=== PATIENT | female | born 1995 | race Caucasian/White ===

== ENCOUNTER 2019-08-07 19:28 | Emergency (ER) | payer OTHER, SELFPAY ==
[2019-08-07 19:46] VITALS: BP 131/82; PULSE 65; RESP 22; TEMP 36.8; O2SAT 100
[2019-08-07 20:04] LABS: Basophils Percent Auto 0.4 % (0.2-1.2); Eosinophils Absolute Auto 0.2 K/mm3 (0-0.3); Eosinophils Percent Auto 1.9 % (0-4.4); Hematocrit 40.8 % (37.0-47.0); Hemoglobin 13.4 g/dL (12.0-15.0); Immature Granulocyte Absolute 0.02 K/mm3 (0.00-0.031); Immature Granulocyte Percent A 0.2 % (0-0.5); Lymphocytes Absolute Auto 1.32 K/mm3 (0.9-3.2); Lymphocytes Percent Auto 15.6 % (18.3-44.2); Mean Corpuscular HGB Conc 32.8 g/dl (32-36); Mean Corpuscular Hemoglobin 31.3 pg (26-34); Mean Corpuscular Volume 95.3 fl (80-100); Mean Platelet Volume 10.5 fl (7.4-10.4); Monocytes Absolute Auto 0.6 K/mm3 (0.1-0.6); Monocytes Percent Auto 6.8 % (2.6-8.5); Neutrophils Absolute Auto 6.3 K/mm3 (1.3-6.7); Neutrophils Percent Auto 75.1 % (45.5-73.1); Platelet Count Result 198 k/mm3 (150-375); Red Blood Count 4.28 M/mm3 (4.2-5.4); Red Cell Distribution Width 12.9 % (11.5-14.5); White Blood Count 8.4 K/mm3 (4.5-10.0)
[2019-08-07 20:16] LABS: Alanine Aminotransferase 15 U/L (4-35); Albumin Level 4.6 g/dL (3.5-5.1); Alkaline Phosphatase 64 U/L (38-126); Aspartate Amino Transferase 24 U/L (14-36); Bilirubin,Total 0.3 mg/dL (0.2-1.3); Blood Urea Nitrogen 13 mg/dL (7-17); Calcium 9.2 mg/dL (8.4-10.2); Carbon Dioxide 24 mmol/L (22-30); Chloride 101 mmol/L (98-107); Estimated CRCL calculation 80 ml/min; Estimated Glomerular Filt Rate > 60; Glucose 112 mg/dL (65-105); Lipase 104 U/L (23-300); Potassium 3.8 mmol/L (3.4-5.0); Sodium 140 mmol/L (137-145)
[2019-08-07 20:46] LABS: Add Urine Microscopic? YES; Appearance Urine Clear (Clear); Bilirubin Urine Negative (Negative); Blood Urine 2+ (Negative); Color Urine Yellow (Yellow); Glucose Urine UA Negative (Negative); Ketones Urine Negative (Negative); Leukocyte Esterase Ur Negative LEU/UL (Negative); Mucus Urine Few /lpf; Nitrate Urine Negative (Negative); Protein Urine Negative (Negative); RBC Urine 0-2 /hpf (0-2); Squamous Epithelial Cell Urine Occasional /hpf (Few); Urobilinogen Urine Negative mg/dL (<2.0); WBC Urine 0-3 /hpf
[2019-08-07 20:50] LABS: Specific Grav Ur 1.031 (1.001-1.035)
--- NOTE | 2019-08-07 20:56 | ED.ABDPAIN ---
HPI - Abdominal Pain General Chief Complaint: Abdominal Pain Stated Complaint: ABD PAIN Time Seen by Provider: 08/07/19 20:48 Source: patient Mode of arrival: ambulatory Limitations: no limitations History of Present Illness HPI narrative: A 24 y/o female presents to the ED with c/o cramping lower ABD pain. Pt states that she is currently on her menstrual cycle and normally has cramps with her menstrual cycle. The cramping ABD pain has been debilitating today and much worse than her normal, so she decided to come to the ED. She took Ibuprofen at 1700 tonight with no relief. Pt reports N/V/D, but denies fever, cough, SOB, and dysuria. She does not note any sick contacts. Pt adds that the ABD pain has subsided in the ED. MD elicited complaint: abdominal pain (Lower) Pertinent past history: other (Menstrual cramps) Onset (ago): hour(s) (Today) Pain Consistency: now resolved Location: other (Lower) Quality: cramping Relieving factors: nothing Context: confirms other (Current menstrual cycle) Associated symptoms: nausea, vomiting and diarrhea Treatments prior to arrival: NSAIDs (Ibuprofen) Related Data Allergies Allergy/AdvReac Type Severity Reaction Status Date / Time Sulfa (Sulfonamide Allergy Rash Verified 08/07/19 21:07 Antibiotics) Review of Systems Review of Systems: Narrative: CONSTITUTIONAL: Denies fever, chills, or sweats. CARDIOVASCULAR: Denies chest pain, palpitations, or edema. RESPIRATORY: Denies cough or dyspnea. GASTROINTESTINAL: Reports lower abdominal pain, nausea, vomiting, or diarrhea. GENITOURINARY: Denies dysuria or hematuria. SKIN: Denies rash or itching. MUSCULOSKELETAL: Denies back pain, joint pain, or myalgia. NEUROLOGIC: Denies headache, numbness, or weakness. All systems reviewed & are unremarkable except as noted in HPI and below PMFSH Past Medical History Medical History (Updated 08/07/19 @ 23:26 by Bre Guerrero MD) Asthma Menstrual cramps Surgical History Surgical History (Updated 08/07/19 @ 21:38 by Kasey Alvarado) History of appendectomy Social History Social History (Updated 08/07/19 @ 21:43 by Kasey Alvarado) Smoking status: Unknown if ever smoked Gender identity (if verbalized by the patient): Female Exam Narrative: Exam Narrative: GENERAL: Well-appearing, well-nourished, and in no acute distress. HEAD: Normocephalic, atraumatic. EYES: PERRLA and EOMI. ENT: Nares clear, no rhinorrhea or epistaxis. Mucous membranes moist. NECK: Supple. CHEST: Clear to auscultation. No respiratory distress. HEART: Regular rate and rhythm. No murmur heard. Normal peripheral pulses. ABDOMEN: Soft, mild suprapubic tenderness, nondistended, normal active bowel sounds. No rebound. No guarding. EXTREMITIES: Normal range of motion. No edema. SKIN: Warm, dry, no rash. NEURO: No focal deficits. Alert and oriented X3. Course Course Emergency Course: Patient's abdomen is soft without significant pain or signs of surgical abdomen on serial exams. Lab evaluations are reviewed and patient is felt to be a reasonable candidate for outpatient management. Patient was instructed as to limitations of lab evaluation and encouraged to return to the emergency department her primary physician for repeat exam in 12 hours if continued or worsening pain. Her symptoms are most consistent with menstrual type cramping pain, and she has a longstanding history of this. No risk for sexually transmitted infection given monogamous with in room, no other vaginal discharge. Patient then discharged home in stable condition. Vital Signs Vital signs: Vital Signs Temperature 36.8 C 08/07/19 19:46 Pulse Rate 65 08/07/19 19:46 Respiratory Rate 22 H 08/07/19 19:46 Blood Pressure 131/82 08/07/19 19:46 Pulse Oximetry 100 08/07/19 19:46 Temperature 36.7 C 08/07/19 22:37 Pulse Rate 74 08/07/19 21:07 Respiratory Rate 18 08/07/19 21:07 Blood Pressure 112/71 08/07/19 21:07 Pulse Oximetry 98
[2019-08-07 21:07] VITALS: BP 112/71; PULSE 74; RESP 18; TEMP 36.7; O2SAT 98
[2019-08-07] MEDS: SODIUM CHLORIDE 0.9% IV 1,000 ML 999 ML IV CONT (22:10)
[2019-08-07] MEDS: ONDANSETRON INJ 4 MG/2 ML VIAL IV PUSH (22:11)
[2019-08-07 22:27] VITALS: BP 107/69; PULSE 68; RESP 16; O2SAT 98
[2019-08-07 22:37] VITALS: TEMP 36.7
[2019-08-08 00:05] VITALS: BP 119/72; PULSE 75; RESP 18; TEMP 37.1; O2SAT 99
== END 2019-08-08 00:07 | disposition home or self-care (01) ==
PROVIDERS: Emergency Provider Emergency Medicine
DX: R10.30 Lower abdominal pain, unspecified (principal); J45.909 Unspecified asthma, uncomplicated
CPT/HCPCS: 36415; 80053; 81001; 81025; 83690; 85025; 96361; 96374; 96375; 99284; J0131; J2405; J7030

== ENCOUNTER 2020-08-30 07:40 | Inpatient (IN) | payer OTHER, SELFPAY ==
[2020-08-30] VITALS (31 sets, daily range): BP systolic 99–160; BP diastolic 65–100; PULSE 67–137; RESP 16; TEMP 36.7–37.1; O2SAT 99–100; BMI 26.3
--- NOTE | 2020-08-30 07:40 | LDADM ---
This patient, Mara Bentley, was admitted to Labor/Delivery/Recovery 107 on 08/30/20 at 07:40. Plans for labor, pain management and were discussed with patient. Patient/family oriented to hospital policies and general routines including ID bracelet, bed and alarms, visiting hours, pain management, procedures, bathroom and other care routines, personal items, smoking policy, room service/diet and guest tray routines, infant security routines, and visiting hours. Patient/Family are encouraged to report perceived risks to care and to ask questions if they do not understand what they are told or what they should do. See OBIX for further documentation.
--- NOTE | 2020-08-30 08:20 | WPDOBADMIT ---
Obstetrics - Admit Note Admission Note: 25 y/o G1 @ 39w5d here with spontaneous rupture of membranes @ 0700. Pt prefers a natural approach to labor. Minimal intervention. record reviewed. No pertinent additions to the history and/or any subsequent changes in the physical findings that are not consistent with the expected course of the were found. Additions to the history and/or subsequent changes in the physical findings follow. None.
[2020-08-30 08:27] LABS: Basophils Percent Auto 0.2 % (0.2-1.2); Eosinophils Absolute Auto 0.1 K/mm3 (0-0.3); Eosinophils Percent Auto 0.9 % (0-4.4); Hematocrit 34.5 % (37.0-47.0); Hemoglobin 11.4 g/dL (12.0-15.0); Immature Granulocyte Absolute 0.03 K/mm3 (0.00-0.031); Immature Granulocyte Percent A 0.3 % (0-0.5); Lymphocytes Absolute Auto 1.47 K/mm3 (0.9-3.2); Lymphocytes Percent Auto 17.1 % (18.3-44.2); Mean Corpuscular Hemoglobin 30.7 pg (26-34); Mean Platelet Volume 10.8 fl (7.4-10.4); Monocytes Absolute Auto 0.8 K/mm3 (0.1-0.6); Monocytes Percent Auto 8.8 % (2.6-8.5); Neutrophils Absolute Auto 6.3 K/mm3 (1.3-6.7); Neutrophils Percent Auto 72.7 % (45.5-73.1); Platelet Count Result 178 k/mm3 (150-375); Red Blood Count 3.71 M/mm3 (4.2-5.4); Red Cell Distribution Width 13.2 % (11.5-14.5); White Blood Count 8.6 K/mm3 (4.5-10.0)
--- NOTE | 2020-08-30 10:32 | P.PNAN_ITS ---
Anes - Eval Pre Procedure Procedure: labor epidural Date/Time: 08/30/20 10:32 Pre Op Diagnosis: Labor Patient Data Age: 25 Gender: F Height: 5 ft 6 in Weight: 74 kg Last Vital Signs Temp 36.9 C 08/30/20 07:55 Pulse 71 08/30/20 09:30 BP 120/73 08/30/20 09:30 Allergies Allergy/AdvReac Type Severity Reaction Status Date / Time Sulfa (Sulfonamide Allergy Rash Verified 01/12/20 12:33 Antibiotics) Home Medications Medication Instructions Recorded Confirmed Type PNV cmb#95-ferrous fumarate-FA 1 tablet PO DAILY 08/06/20 08/30/20 History [] Laboratory Tests 08/30/20 08/30/20 08/30/20 08:21 08:21 08:21 WBC 8.6 K/mm3 K/mm3 (4.5-10.0) RBC 3.71 M/mm3 L M/mm3 (4.2-5.4) Hgb 11.4 g/dL L g/dL (12.0-15.0) Hct 34.5 % L % (37.0-47.0) MCV 93.0 fl fl (80-100) MCH 30.7 pg pg (26-34) MCHC 33.0 g/dl g/dl (32-36) RDW 13.2 % % (11.5-14.5) Plt Count 178 k/mm3 k/mm3 (150-375) MPV 10.8 fl H fl (7.4-10.4) Immature Gran % (Auto) 0.3 % % (0-0.5) Neut % (Auto) 72.7 % % (45.5-73.1) Lymph % (Auto) 17.1 % L % (18.3-44.2) [place] % (Auto) 8.8 % H % (2.6-8.5) Eos % (Auto) 0.9 % % (0-4.4) Baso % (Auto) 0.2 % % (0.2-1.2) Lymph # (Auto) 1.47 K/mm3 K/mm3 (0.9-3.2) [place] # (Auto) 0.8 K/mm3 H K/mm3 (0.1-0.6) Eos # (Auto) 0.1 K/mm3 K/mm3 (0-0.3) Baso # (Auto) 0.0 K/mm3 K/mm3 (0.0-0.1) Abs Immat Gran (auto) 0.03 K/mm3 K/mm3 (0.00-0.031) Absolute Neuts (auto) 6.3 K/mm3 K/mm3 (1.3-6.7) Absolute Nucleated RBC 0.0 K/mm3 K/mm3 (0.0-0.012) Nucleated RBC % 0.0 % % (0.0-0.2) RPR Pending Blood Type O Positive Antibody Screen Negative Patient hx anesthesia problems: none Family hx anesthesia problems: none [facility] Past Medical History Medical History (Updated 08/30/20 @ 10:32 by Natan Sterling CRNA) Asthma Menstrual cramps Surgical History Surgical History History of appendectomy Family History Family History Grandparent Diabetes mellitus Social History Social History Smoking status: Never smoker Second hand tobacco smoke exposure: No Substance use: never Gender identity (if verbalized by the patient): Female Spiritual care concerns: No Exam Day of Procedure 08/30/20 10:32 Patient weight: normal Heart: regular rate and rhythm Lungs: clear to auscultation and normal air movement Neurological: alert and oriented
[2020-08-30] MEDS: CALCIUM CARBONATE (TUMS) 500 MG (200 MG ELEMENTAL) 400 MG PO (14:22)
--- NOTE | 2020-08-30 17:06 | PM.OBPRVD ---
OB - Delivery Note Procedure Delivery date: 08/30/20 Procedure: vaginal delivery Intrapartal events: None Induction method: none Delivery monitor: external FHT and external uterine Route of delivery: Laceration Description: Perineal - 2nd Degree Delivery repair: vicryl Specimen: No Quantitative Blood Loss (ml): 104 Anesthesia type: Local (after delivery for repair) Disposition: other () Baby Date of : 08/30/20 Time of : 16:47 Weeks of gestation at delivery: 39 gender: Female Weight (pounds): 7 Weight (ounces): 13 presentation: vertex position: Left Occiput Anterior Placenta delivery description: Spontaneous cord vessel description: 3 Vessels, Nuchal Cord, Clamped/Cut and Delayed Cord Clamping score one minute: 8 score five minutes: 9 Narrative: mother and baby skin to skin in stable condition
[2020-08-30] MEDS: IBUPROFEN 600 MG TABLET PO (18:19)
[2020-08-30] MEDS: BENZOCAINE 20% AER SPR (*SP) 56 GM CAN 1 SPRAY TOPICAL (18:20)
[2020-08-30] MEDS: WITCH HAZEL 40 PADS 1 PAD TOPICAL (18:20)
--- NOTE | 2020-08-30 19:40 | OBPPTRN ---
Patient transferred to post room #282 via wheelchair. Support person present. Oriented to unit, room, information board, rooming in, admission packet and security measures. Patient verbalizes understanding. with patient.
[2020-08-30] MEDS: ACETAMINOPHEN 325 MG TABLET 650 MG PO (23:44)
[2020-08-31 04:20] VITALS: BP 120/74; PULSE 67; RESP 16; TEMP 36.4; O2SAT 100
[2020-08-31] MEDS: IBUPROFEN 600 MG TABLET PO ×2 (04:22→18:50)
[2020-08-31 05:13] LABS: Hematocrit 29.2 % (37.0-47.0); Hemoglobin 9.4 g/dL (12.0-15.0)
--- NOTE | 2020-08-31 07:35 | PM.OBPNVD ---
OB - PN: Subj Subjective Date/time seen: 08/31/20 07:35 Patient comments: no complaints baby status: doing well Johnson feeding status: exclusively breast feeding OB - PN: Obj Data Labs CBC & Chem 7: 08/31/20 04:25 Labs: Laboratory Results - last 24 hr 08/30/20 08/30/20 08/31/20 08:21 08:21 04:25 WBC 8.6 RBC 3.71 L Hgb 11.4 L 9.4 L Hct 34.5 L 29.2 L MCV 93.0 MCH 30.7 MCHC 33.0 RDW 13.2 Plt Count 178 MPV 10.8 H Immature Gran % (Auto) 0.3 Neut % (Auto) 72.7 Lymph % (Auto) 17.1 L [place] % (Auto) 8.8 H Eos % (Auto) 0.9 Baso % (Auto) 0.2 Lymph # (Auto) 1.47 [place] # (Auto) 0.8 H Eos # (Auto) 0.1 Baso # (Auto) 0.0 Abs Immat Gran (auto) 0.03 Absolute Neuts (auto) 6.3 Absolute Nucleated RBC 0.0 Nucleated RBC % 0.0 Blood Type O Positive Antibody Screen Negative OB - PN A/P Time Spent With Patient Time: Total time spent is greater than 50% in coordination of care (as documented) at patient's floor/unit and/or counseling patient: Review of Systems Review of Systems: All systems reviewed & are unremarkable except as noted in HPI and below Constitutional: Constitutional: Reports as per HPI Exam Const: General: cooperative Nutritional Appearance: average body habitus Orientation/consciousness: patient oriented x3 Limitations: no limitations Psych: Affect: normal affect Attitude: cooperative Thought process: Normal thought process present Thought content: Yes Normal thought content present Insight: Good insight present (Psych) Judgement: Good judgement present (Psych)
--- NOTE | 2020-08-31 07:52 | P.DS_ITS ---
DS: Admitting Diagnosis Admitting Diagnosis Admitting Diagnosis: labor OB - DS: Summary OB Procedures : None OB Procedures Intrapartum: Spontaneous Vag Delivery OB Procedures: : None Time Spent with Patient Time attestation: Total time spent providing and/or coordinating discharge services: DS: Data Data Completed and Pending Labs on day of discharge: Labs from last 24 hours 08/31/20 08/30/20 08/30/20 04:25 08:21 08:21 WBC RBC Hgb 9.4 L Hct 29.2 L MCV MCH MCHC RDW Plt Count MPV Immature Gran % (Auto) Neut % (Auto) Lymph % (Auto) [place] % (Auto) Eos % (Auto) Baso % (Auto) Lymph # (Auto) [place] # (Auto) Eos # (Auto) Baso # (Auto) Abs Immat Gran (auto) Absolute Neuts (auto) Absolute Nucleated RBC Nucleated RBC % RPR Pending Blood Type O Positive Antibody Screen Negative 08/30/20 08:21 WBC 8.6 RBC 3.71 L Hgb 11.4 L Hct 34.5 L MCV 93.0 MCH 30.7 MCHC 33.0 RDW 13.2 Plt Count 178 MPV 10.8 H Immature Gran % (Auto) 0.3 Neut % (Auto) 72.7 Lymph % (Auto) 17.1 L [place] % (Auto) 8.8 H Eos % (Auto) 0.9 Baso % (Auto) 0.2 Lymph # (Auto) 1.47 [place] # (Auto) 0.8 H Eos # (Auto) 0.1 Baso # (Auto) 0.0 Abs Immat Gran (auto) 0.03 Absolute Neuts (auto) 6.3 Absolute Nucleated RBC 0.0 Nucleated RBC % 0.0 RPR Blood Type Antibody Screen Discharge Plan Discharge Attending physician on discharge: Rodney Mistry Discharging Clinician: Regina Hernandez Patient Disposition: Home, Self-Care Activity: pelvic rest Diet: regular Patient Instructions: Antibiotic Form Stand Alone Forms: General Discharge Information Follow-up/Referrals: Regina Hernandez CNM [Certified Nurse Electronic Warfare Specialist] - 4 Weeks Discharge Medications: Continued PNV cmb#95-ferrous fumarate-FA [] 28 mg iron- 800 mcg Tablet 1 tablet PO DAILY RF: 0 Date of admission: 08/30/20 07:40 Primary Care Provider: Zohreh,Peewee Estrada Admitting Provider: Rodney Mistry Attending physician on admission: Rodney Mistry Condition: Stable
[2020-08-31 08:35] VITALS: BP 109/64; PULSE 67; RESP 16; TEMP 36.8; O2SAT 100
[2020-08-31 08:43] LABS: Rapid Plasma Reagin Non-Reactive (NonReactive)
--- NOTE | 2020-08-31 09:20 | PC.NURSE ---
Mother called out for assist with feeding. Consulted with patient, reports has bed well since . Mother has nipple discomfort with latch during most of the feeding. Both nipples are reddened, nipple care reviewed and lanolin provided. Reviewed feeding cues, frequencies, duration of feedings, feeding elimination flow sheet, and signs of adequate intake. Demonstrated stimulation techniques to wake infant for feeding. Assisted with to breast. Reviewed positioning/alignment in cross cradle, holding breast in U hold and guided asymmetrical latch on. Infant was able to latch correctly within a few attempts. nursed eagerly, with steady draws and frequent swallowing noted. Reviewed signs of a correct latch, effective nursing and suck swallow ratio. Infant was able to maintain latch. Mother reported tenderness at times, had slipped to shallow latch. Demonstrated how to adjust latch more deeply while feeding. Mother quickly reports she can feel infant is latched more deeply and has minimal tenderness. Suggested to stimulate while feeding to keep infant awake and nursing effectively for increased stimulation and increased intake. Instructed mother to call out for RN assistance if she is unable to latch infant for feeding or she has discomfort with nursing. Instructed feeding should be initiated three hours from start of last feeding or if feeding cues are noted before. Mother voiced understanding of information shared.
[2020-08-31] MEDS: DOCUSATE SODIUM 100 MG CAPSULE PO ×2 (11:05→18:51)
[2020-08-31] MEDS: MULTIVIT/MIN/PREN/FOL AC/IRON TABLET 1 TAB PO (11:05)
[2020-08-31] MEDS: WITCH HAZEL 40 PADS 1 PAD TOPICAL (11:06)
[2020-08-31] MEDS: ACETAMINOPHEN 325 MG TABLET 650 MG PO (11:06)
[2020-08-31] MEDS: BENZOCAINE 20% AER SPR (*SP) 56 GM CAN 1 SPRAY TOPICAL (11:07)
[2020-08-31] MEDS: LANOLIN (LANSINOH) 7.5 GM CREAM 1 APPLIC TOPICAL (11:07)
[2020-08-31 11:30] VITALS: PULSE 67; RESP 16; O2SAT 100
[2020-08-31 12:12] VITALS: BP 111/71; PULSE 75; RESP 16; TEMP 36.8; O2SAT 99
--- NOTE | 2020-08-31 13:10 | PC.NURSE ---
Mother called out for assist with latch. Upon entering mother has latch shallow in football. Mother reports pain to nipple. is in poor positioning/alignment. Suggested to switch to cross cradle. Assisted with support for correct positioning/alignment. Reviewed positioning/alignment in cross cradle, holding breast in U hold and guided asymmetrical latch on. Several attempts before was able to latch correctly.. nursed eagerly, with steady draws and frequent swallowing noted. Reviewed signs of a correct latch, effective nursing and suck swallow ratio. Infant was able to maintain latch. Mother reported tenderness at times, infant had slipped to shallow latch. Demonstrated how to adjust latch more deeply while feeding. Mother quickly reports she can feel infant is latched more deeply and has minimal tenderness. Stressed maintaining deep latch and calling out if she has discomfort with feeding. Suggested to stimulate infant while feeding to keep infant awake and nursing effectively for increased stimulation and increased intake. Instructed mother to call out for RN assistance if she is unable to latch for feeding or she has discomfort with nursing. Advised to use warm moist heat to nipples and then gel pads. Instructed feeding should be initiated three hours from start of last feeding or if feeding cues are noted before. Mother voiced understanding of information shared.
[2020-08-31] MEDS: POLYSACCHARIDE IRON COMPLEX 150 MG CAPSULE PO (18:51)
[2020-08-31 19:00] VITALS: BP 114/70; PULSE 77; RESP 16; TEMP 36.7
--- NOTE | 2020-09-01 07:38 | PM.OBDSVD ---
DS: Admitting Diagnosis Admitting Diagnosis Admitting Diagnosis: Labor DS: Discharge Diagnosis Discharge Diagnosis (1) Vaginal delivery: Code(s): O80 - Encounter for full-term uncomplicated delivery Status: Acute OB - DS: Summary OB Procedures : None OB Procedures Intrapartum: Spontaneous Vag Delivery OB Procedures: : None Time Spent with Patient Time attestation: Total time spent providing and/or coordinating discharge services: DS: Data Data Completed and Pending Labs on day of discharge: Labs from last 24 hours 08/30/20 08:21 RPR Non-reactive Discharge Plan Discharge Attending physician on discharge: Rodney Mistry Discharging Clinician: Regina Hernandez Patient Disposition: Home, Self-Care Activity: pelvic rest Diet: regular Discharge Instructions: Education: Mom and Baby Guide Given to: Mother Follow-Up: Call your delivering provider's office for an appointment to be seen in: 4 Weeks Mom and baby [facility] come [facility] for the follow-up appointment. Appointment Date/Time: September 01, 2020 at 9:00 am What to expect at your follow-up visit: Blood Pressure Check Physical Assessment Call [phone] if you are unable to keep your appointment time. BREAST CARE: * Wear a snug supportive bra. * For engorgement discomfort: Breast Feeding: * Apply warm moist washcloths * Express milk as needed to relieve engorgement * Wear loose clothing * For sore nipples: * Identify correct latch-on * Apply warm moist washcloths before and after nursing * Air dry nipples after nursing * May apply Lansinoh cream to nipples PERINEAL CARE: * Until bleeding stops, use your ivy bottle after urinating * Change your pad frequently throughout the day * You may take sitz baths several times a day (fill your bathtub with warm water and soak for 20 minutes.) Do NOT bathe in the water * No tub baths until seen by your physician - You may shower ACTIVITY: * Rest as much as possible. * Do not exercise or lift anything heavier than your baby (such as laundry or other children.) * Avoid stairs or driving as much as possible. * Do not put anything into the vagina. No douching, tampons, or sexual activity until seen by physician. NOTIFY PHYSICIAN IF YOU HAVE ANY QUESTIONS OR IF ANY OF THE FOLLOWING SYMPTOMS OCCUR: * If your vaginal area becomes red, swollen, or more painful than what you have experienced in the hospital. * If your vaginal bleeding becomes foul smelling. * If your vaginal bleeding becomes more heavy than a period or if your bleeding changes from pink to bright red. However, you may pass an occasional walnut-sized clot once or twice for the first week . * If you experience a sharp, shooting pain in your calves. * If you discover a hard, reddened area on your breast or if you experience flu-like symptoms. DIET: * Eat regular, well-balanced meals. * Drink plenty of fluids daily. If , drink to thirst. Patient Instructions: Child Safety Seats (DC), Caring for Your Baby (DC), How Long Should I Breastfeed and How do I Wean? (DC), Your Winfred's Appearance (DC) Stand Alone Forms: General Discharge Information Follow-up/Referrals: Regina Hernandez CNM [Certified Nurse Hot Stamp Operator] - 4 Weeks Discharge Medications: Continued PNV cmb#95-ferrous fumarate-FA [] 28 mg iron- 800 mcg Tablet 1 tablet PO DAILY RF: 0 Date of admission: 08/30/20 07:40 Primary Care Provider: Zohreh,Peewee Estrada Admitting Provider: Rodney Mistry Attending physician on admission: Rodney Mistry Condition: Stable
[2020-09-01 07:55] VITALS: BP 115/75; PULSE 91; RESP 18; TEMP 36.6; O2SAT 99
--- NOTE | 2020-09-01 08:15 | PC.NURSE ---
Mother is able to independently latch infant with appropriate positioning/alignment. She continues to report slight nipple discomfort, is feeding as required and waking to feed if needed. has had several effective feedings in the past 24 hours, and is currently meeting outcomes for weight, output, jaundice and feeding frequencies. is supplemented after each feeding by ICP suggestion for increased jaundice. Mother states she feels confident to continue and supplementing at home. Offered to set up and assist mother with pumping before discharge, mother has a pump at home she plans to use and denies assist. Mother will continue to supplement EBM/formula until seen by ICP or advised by follow up RN. Reviewed transition to breast milk, signs of adequate intake, and engorgement/relief. Instructed to call ICP if intake/output less than required. Reviewed regular medications mother is taking. Information provided per Amee. Reviewed community resources on the [facility] website and in the Mom/Baby guide. Information on outpatient services provided. Mother has no further questions at this time.
[2020-09-01 09:00] VITALS: PULSE 91; RESP 18; O2SAT 99
[2020-09-01] MEDS: MULTIVIT/MIN/PREN/FOL AC/IRON TABLET 1 TAB PO (10:09)
[2020-09-01] MEDS: DOCUSATE SODIUM 100 MG CAPSULE PO (10:09)
[2020-09-01] MEDS: IBUPROFEN 600 MG TABLET PO (10:09)
[2020-09-02 12:13] VITALS: BP 119/80; PULSE 87; RESP 20; TEMP 36.8; O2SAT 100
== END 2020-09-01 10:30 | disposition home or self-care (01) | DRG 807 ==
LOC: ANHLDR 08:48 → ANHOB2 19:46
PROVIDERS: Advanced Practice Midwife; Admitting Provider Obstetrics & Gynecology; PCP Family Medicine; Visit Provider Obstetrics & Gynecology
DX: O99.52 Diseases of the respiratory system complicating childbirth (principal); Z37.0 Single live birth; Z3A.39 39 weeks gestation of pregnancy; J45.909 Unspecified asthma, uncomplicated; O70.1 Second degree perineal laceration during delivery; O69.81X0 Labor and delivery complicated by cord around neck, without compression, not applicable or unspecified
CPT/HCPCS: 36415; 84112; 85014; 85018; 85025; 86592; 86850; 86900; 86901; A9270

== ENCOUNTER 2023-09-27 13:41 | Emergency (ER) | payer OTHER, SELFPAY ==
--- NOTE | ~2023-09-27 | XR_ITS ---
EXAMINATION: XR chest 2V DATE: 09/27/2023 14:33 INDICATION: Chest pain TECHNIQUE: PA and lateral views of the chest are obtained. COMPARISON: None available FINDINGS: The lungs are free of acute opacities. No pleural effusion or pneumothorax. The cardiomedia stinal silhouette is normal. The visualized bones and soft tissues are unremarkable. IMPRESSION: 1. No acute cardiopulmonary abnormality. Reviewed, dictated and finalized at location A.
--- NOTE | 2023-09-27 13:43 | ECG_ITS ---
Measurements Intervals [place] Rate: 88 P: 84 ME: 133 QRS: 93 QRSD: 94 T: 32 QT: 329 QTc: 399 Interpretive Statements SINUS RHYTHM RIGHT AXIS DEVIATION POSSIBLE LEFT ATRIAL ENLARGEMENT NONSPECIFIC ST-T WAVE ABNORMALITY- ANTEROLAT/INF LEADS BORDERLINE ECG NO PREVIOUS ECG AVAILABLE FOR COMPARISON Electronically Signed On 09-28-2023 16:33:04 CDT by Destin Daniel D.O.
[2023-09-27 13:56] VITALS: BP 121/74; PULSE 84; RESP 18; TEMP 36.9; O2SAT 100
[2023-09-27 14:16] LABS: Basophils Percent Auto 0.6 % (0.2-1.2); Eosinophils Absolute Auto 0.1 K/mm3 (0-0.3); Eosinophils Percent Auto 1.1 % (0-4.4); Hematocrit 40.8 % (37.0-47.0); Hemoglobin 13.2 g/dL (12.0-15.0); Immature Granulocyte Absolute 0.01 K/mm3 (0.00-0.031); Immature Granulocyte Percent A 0.2 % (0-0.5); Mean Corpuscular HGB Conc 32.4 g/dl (32-36); Mean Corpuscular Hemoglobin 30.6 pg (26-34); Mean Corpuscular Volume 94.7 fl (80-100); Mean Platelet Volume 10.9 fl (7.4-10.4); Monocytes Absolute Auto 0.4 K/mm3 (0.1-0.6); Monocytes Percent Auto 7.4 % (2.6-8.5); Neutrophils Percent Auto 55.7 % (45.5-73.1); Platelet Count Result 178 k/mm3 (150-375); Red Blood Count 4.31 M/mm3 (4.2-5.4); Red Cell Distribution Width 13.1 % (11.5-14.5); White Blood Count 5.4 K/mm3 (4.5-10.0)
[2023-09-27 14:24] VITALS: O2SAT 100
[2023-09-27 14:25] VITALS: BP 116/72; PULSE 89; RESP 14; O2SAT 100
[2023-09-27 14:26] LABS: Alanine Aminotransferase 15 U/L (6-35); Albumin Level 4.5 g/dL (3.5-5.1); Alkaline Phosphatase 56 U/L (38-126); Anion Gap 5 mmol/L (4-12); Aspartate Amino Transferase 26 U/L (14-36); Bilirubin,Total 0.5 mg/dL (0.2-1.3); Blood Urea Nitrogen 13 mg/dL (7-17); Calcium 9.4 mg/dL (8.4-10.2); Carbon Dioxide 27 mmol/L (22-30); Chloride 107 mmol/L (98-107); Estimated Glomerular Filt Rate > 60; Glucose 96 mg/dL (65-110); Lipase 115 U/L (23-300); Potassium 3.9 mmol/L (3.4-5.0); Sodium 139 mmol/L (137-145)
[2023-09-27 14:27] LABS: Partial Thromboplastin Time 28.6 Seconds (22.3-36.8); Prothrombin Time 13.4 Seconds (11.1-14.7)
[2023-09-27 14:46] LABS: Troponin I < 0.012 ng/mL (0.000-0.034)
[2023-09-27 15:07] VITALS: BP 104/63; PULSE 64; RESP 16; O2SAT 100
[2023-09-27 15:11] VITALS: PULSE 69; RESP 15
[2023-09-27] MEDS: IPRATROPIUM 0.5 MG/ALBUTEROL SULFATE 2.5 MG AMPUL.NEB 3 ML INHALATION (15:11)
[2023-09-27] MEDS: KETOROLAC 30 MG/ML VIAL (*BKC) 15 MG IM (15:13)
[2023-09-27 15:18] VITALS: PULSE 71; RESP 14
--- NOTE | 2023-09-27 15:43 | ED.CHESTPAIN ---
HPI - Chest Pain General Chief Complaint: Chest Pain Stated Complaint: chest pain/sob Time Seen by Provider: 09/27/23 14:28 History of Present Illness HPI narrative: Patient with history of asthma presents here with midsternal chest pain that is nonradiating, associated with a slight cough. She has been having this discomfort on and off for the last 2 weeks, was worse yesterday. No focal numbness or weakness. No lower extremity pain or swelling. Related Data Home Medications Medication Instructions Recorded Confirmed vit no.95-ferrous 1 tablet PO DAILY 08/06/20 08/30/20 fumarate 28 mg-folic acid 800 mcg tablet () Allergies Allergy/AdvReac Type Severity Reaction Status Date / Time Sulfa (Sulfonamide Allergy Rash Verified 01/12/20 12:33 Antibiotics) Review of Systems Review of Systems: CONST: No fever. HEENT: No sore throat C/V: chest pain RESP: cough GI: No abdominal pain : No dysuria. M/S: No joint pain. SKIN: No rash. NEURO: [No headache or focal numbness or weakness] PSYCH: [No depression] [facility] Past Medical History Medical History Asthma Menstrual cramps Surgical History Surgical History History of appendectomy Family History Family History Grandparent Diabetes mellitus Social History Social History Smoking status: Never smoker Second hand tobacco smoke exposure: No Substance use: never Gender identity (if verbalized by the patient): Female Spiritual care concerns: No Exam Narrative: EXAMINATION OF ORGAN SYSTEMS/BODY AREAS: Constitutional: Vital signs per nursing GENERAL:[No acute distress, non-toxic appearing.] HEAD: Normal with no signs of head trauma. EYES: EOMI, conjunctiva normal ENT: Hearing grossly intact LUNGS: Nonlabored breathing. Clear to auscultation bilaterally. HEART: [Regular rate and rhythm] ABD: [Soft], [nontender to palpation] EXT: Normal range of motion SKIN: [No rashes or lesions.] NEURO: [Alert and oriented x 3. No gross focal sensory or strength deficits.] PSYCH: Normal affect Course Vital Signs Vital signs: Vital Signs Temperature 98.4 F 09/27/23 13:56 Pulse Rate 84 09/27/23 13:56 Respiratory Rate 18 09/27/23 13:56 Blood Pressure 121/74 09/27/23 13:56 Pulse Oximetry 100 09/27/23 13:56 Oxygen Delivery Room Air 09/27/23 13:56 Temperature 98.4 F 09/27/23 13:56 Pulse Rate 71 09/27/23 15:18 Respiratory Rate 14 09/27/23 15:18 Blood Pressure 104/63 09/27/23 15:07 Pulse Oximetry 100 09/27/23 15:07 Oxygen Delivery Room Air 09/27/23 14:24 MDM - Chest Pain MDM Narrative Medical decision making narrative: ED COURSE AND MEDICAL DECISION MAKINF presenting with chest pain. EKG done in triage negative for acute ischemic changes. Cardiac workup is initiated. EKG: Performed in triage and interpreted by me. Normal sinus rhythm. Rate 88. Normal axis. OR normal. QRS duration normal. QTc normal. No pathologic Q waves. No ST segment elevation or depression to suggest acute ischemia. HEART score is 0 with no acute ischemic changes on EKG and negative troponin making ACS unlikely. No DVT symptoms and negative PERC making PE unlikely. Presentation not consistent with dissection or aneurysm without radiation of pain or pulse deficits. CXR negative for mediastinal widening. No cardiomegaly or JVD to suggest pericardial effusion/tamponade. HEART Score: [0]. (Risk of major adverse cardiac events over 6 weeks: Score of 0-3 is low risk <2% ; Score of 4-6 is moderate risk ~12-15%; Score of 7-12 is high risk ~50%). I suspect likely chest pain from acute bronchitis/cough, will give pain medication and try DuoNebs. On repeat evaluation just prior to discha
== END 2023-09-27 15:56 | disposition home or self-care (01) ==
LOC: ANHED 15:07
PROVIDERS: Emergency Medicine; Emergency Provider Emergency Medicine; Referring Provider Emergency Medicine
DX: R07.89 Other chest pain (principal); J45.909 Unspecified asthma, uncomplicated; R94.31 Abnormal electrocardiogram [ECG] [EKG]
CPT/HCPCS: 36415; 71046; 80053; 83690; 84484; 85025; 85610; 85730; 93005; 94640; 96372; 99284; J1885

== ENCOUNTER 2025-06-13 15:28 | Observation (INO) | payer BC, SELFPAY ==
--- OUTSIDE RECORDS SUMMARY | 2025-06-13 15:30 | XMS_ITS | Encounter Summary ---
Author Organization [facility] Healthcare Address [address] [place] [address] Care Team Providers Care Smoking Pipe Coater Name Role Phone Unknown, Notinfile Primary Care Provider Unavail able Reason for Visit * Reason Comments Nausea Nausea, stomach cram ps, diarrhea x 5 days Encounter Details Date Type Department Care Team (Late st Contact Info) Description 06/13/2025 3:30 PM DRILLER'S OFFSIDER Office Visit [facility] at [address] [id number] Dayanna Urias NP [address] [place] [address] [address] [place], [place] [id number] Right upper quadrant abdominal pain (Primary Dx); Right upper quadrant abdominal tenderness, unspecified whether rebound tenderness present; 25 weeks gestation of Social History Tobacco Use Types Packs/Day Years Used Date Smoking Tobacco: Never Estimated Date of Delivery Comme nts Yes 09/25/2025 Sex and Gender Information Value Date Recorded Sex Assigned at Not on file Legal Sex Female 8:13 AM CDT Gender Identity Not on file Sexual Orientation Not on file documented as of this encounter Last Filed Vital Signs Vital Sign Reading Time Taken Comments Blood Pressure 115/76 06/13/2025 2:59 PM D[employer]ER[employer]S [employer]ER Pulse 85 06/13/2025 2:59 PM DRILLER[employer]S [employer]SIDER Temperature 37.2 C (98.9 F) 06/13/2025 2:59 PM DRILLER'S [employer]SIDER Respiratory Rate 16 06/13/2025 2:59 PM DRILLER'S OFFSIDER Oxygen Saturation 99% 06/13/2025 2:59 PM DRILLER'S OFFSIDER Inhaled Oxygen Concentration - - Weight 69.4 kg (153 lb) 06/13/2025 2:59 PM DRILLER'S OFFSIDER Height 165.1 cm (5' 5) 06/13/2025 2:59 PM [employer]RI[employer]ER[employer]S [employer]SIDER Body Mass Index 25.46 06/13/2025 2:59 PM DRILLER[employer]S [employer]SIDER documented in this encounter Plan of Treatment Not on file documented as of this encounter Visit Diagnoses Diagnosis Right upper quadrant abdominal pain- Primary Right upper quadrant abdominal tenderness, unspecified whether rebound tenderness present 25 weeks gestation of documented in this encounter Care Teams Smoking Pipe Coater Relationship Specialty Start Date End Date Unknown, Notinfile PCP - General 09/19/23 documented as of this encounter
--- OUTSIDE RECORDS SUMMARY | 2025-06-13 15:44 | XMS_ITS | Continuity of Care Document ---
Author Organization [facility] Address [address] [place] [address] [place] [address] Assessment No assessment recorded. Plan of Treatment Reminders Order Date Submit Date Provider Last Modified By Organization Details Last Modified Time Details Appointments U/S OB GROWTH 2025 04:00P M ULTRASOUND Not available Not available Not available OB ROUTINE 2025 05:00P M Rodney PEREZ MD Not available Not available Not available Lab drug screen, urine 2024 025 [facility], [address], [address], [place], [address], 03/16/2025 15:45:09 culture , urine 2024 025 [facility] (Lab), [address], [place], [address], 03/18/2025 15:41:18 pap, IG + HR HPV - HPV regardl ess but if HPV is positiv e need subtypi ng 16,18/4 5 2024 025 [facility] (Lab), [address], [place], [address], 03/18/2025 15:41:19 HbA1c (hemogl obin A1c), blood 2024 025 [facility] (Lab), [address], [place], [address], 03/18/2025 00:59:56 type + screen, blood 2024 025 [facility] (Lab), [address], [place], [address], 03/18/2025 00:59:56 rubella igg Ab, titer, serum 2024 025 [facility] (Lab), [address], [place], [address], 03/18/2025 00:59:56 CBC w/ auto diff 2024 025 [facility] (Lab), [address], [place], [address], 03/18/2025 00:59:55 hepatit is C virus Ab, serum 2024 025 [facility] (Lab), [address] , [place], [address], 03/18/2025 00:59:56 HBsAg (hepati tis B surface Ag), serum 2024 025 [facility] (Lab), [address], [place], [address], 03/18/2025 00:59:55 RPR (rapid plasma reagin) , serum 2024 025 [facility] (Lab), [address] , [place], [address], 03/18/2025 00:59:57 HIV 1+2 AB + HIV 1 p24 Ag, qualita tive immunoa ssay, serum 2024 025 [facility] (Lab), [address], [place], [address], 03/18/2025 00:59:55 aneuplo idy risk, chromos ome specifi c circula ting cell free (ccf) DNA, materna l serum 2024 025 [facility], [address], [place], [address], 03/26/2025 10:06:17 Referral None recorde d. Procedures None recorde d. Surgeries None recorde d. Imaging None recorde d. Medication Orders None recorde d. Patient TargetsNo targets recorded. Patient InstructionsNo instructions recorded. Reason for Referral None Reported. Results Created Date Observation Date Name Description Value Unit Range Abnormal Flag Note LastModifiedBy Organization Detail LastModifiedTime 03/26/2003/26/2025 [UNIT Y] ANEUP LOIDY NIPT fraction 11.1% normal Not Available [facility] [address], [place], [address], 03/26/2025 02:58:30 03/26/2003/26/2025 [UNIT Y] ANEUP LOIDY NIPT 22Q11.2 microdeletio n LOW RISK <1 in 10,000 normal Not Available [facility] [address], [place], [address], 03/26/2025 02:58:30 03/26/2003/26/2025 [UNIT Y] ANEUP LOIDY NIPT sex chromosome aneuploidy NOT DETECT ED normal Not Available [facility] [address], [place], [address], 03/26/2025 02:58:30 03/26/2003/26/2025 [UNIT Y] ANEUP LOIDY NIPT monosomy X LOW RISK <1 in 10,000 normal Not Available [facility] [address], [place], [address], 03/26/2025 02:58:30 03/26/2003/26/2025 [UNIT Y] ANEUP LOIDY NIPT trisomy 13 LOW RISK <1 in 10,000 normal Not Available [facility] [address], [place], [address], 03/26/2025 02:58:30 03/26/20 25 03/26/2025 [UNIT Y] ANEUP LOIDY NIPT trisomy 18 LOW RISK <1 in 10,000 normal Not Available [facility] [address], [place], [address], 03/26/2025 02:58:30 03/26/20 25 03/26/2025 [UNIT Y] ANEUP LOIDY NIPT trisomy 21 LOW RISK <1 in 10,000 normal Not Available [facility] [address], [place], [address], 03/26/2025 02:58:30 03/26/20 25 03/26/2025 [UNIT Y] ANEUP LOIDY NIPT sex MALE normal Not Available [facility] [address], [place], [address], 03/26/2025 02:58:30 03/26/20 25 03/26/2025 [UNIT Y] ANEUP LOIDY NIPT gestation SINGLE TON normal Not Available [facility] [address], [place], [address], 03/26/2025 02:58:30 03/26/20 25 03/26/2025 [UNIT Y] ANEUP LOIDY NIPT for detailed report, see pdf See PDF normal Not Available [facility] [address], [place], [address], 03/26/2025 02:58:30 03/16/2003/16/2025 HEPAT ITIS B SURFA CE ANTIG EN hepatitis B surface antigen Non-re active non-re active This assay was perfo rmed using [employer] ratio n reage nts and test kits. Value s obtai magali with other assay metho ds or kits canno t be used inter lane eably . Not Available [facility] (Lab) [address], [place], [address], 03/18/2025 00:59:55 03/16/2003/16/2025 CBC W/DIF F WBC 6.9 10'3/ uL 3.5-10 .5 Not Available [facility] (Lab) [address] , [place], [address], 03/18/2025 00:59:55 03/16/2003/16/2025 CBC W/DIF F RBC 4.18 10'6/ uL (based on docume nted legal sex) 3.80-5 .20 Not Available [facility] (Lab) [address] [facility], [place], [address], 03/18/2025 00:59:55 03/16/2003/16/2025 CBC W/DIF F HGB 12.8 g/dL (based on docume nted legal sex) 11.6-1 5.4 Not Available [facility] (Lab) [address], [place], [address], 03/18/2025 00:59:55 03/16/2003/16/2025 CBC W/DIF F HCT 39.1 % (based on docume nted legal sex) 34.0-4 5.0 Not Available [facility] (Lab) [address], [place], [address], 03/18/2025 00:59:55 03/16/2003/16/2025 CBC W/DIF F MCV 93.5 fL 80.0-9 9.0 Not Available [facility] (Lab) [address] [facility], [place], [address], 03/18/2025 00:59:55 03/16/2003/16/2025 CBC W/DIF F MCH 30.6 pg 27.0-3 4.0 Not Available [facility] (Lab) [address] [facility], [place], [address], 03/18/2025 00:59:55 03/16/2003/16/2025 CBC W/DIF F MCHC 32.7 g/dL 32.0-3 5.5 Not Available [facility] (Lab) [address] [facility], [place], [address], 03/18/2025 00:59:55 03/16/2003/16/2025 CBC W/DIF F RDW 13.5 % 11.0-1 5.0 Not Available [facility] (Lab) [address] [facility], [place], [address], 03/18/2025 00:59:55 03/16/2003/16/2025 CBC W/DIF F plt 205 10'3/ uL 150-40 0 Not Available [facility] (Lab) [address] [facility], [place], [address], 03/18/2025 00:59:55 03/16/2003/16/2025 CBC W/DIF F MPV 10.5 fL 8.8-12 .1 Not Available [facility] (Lab) [address] [facility], [place], [address], 03/18/2025 00:59:55 03/16/2003/16/2025 CBC W/DIF F NRBC's 0.0 % 0.0 Not Available [facility] (Lab) [address] [facility], [place], [address], 03/18/2025 00:59:55 03/16/2003/16/2025 CBC W/DIF F absolute NRBCs 0.0 10'3/ uL no refere nce range establ ished Not Available [facility] (Lab) [address] [facility], [place], [address], 03/18/2025 00:59:55 03/16/2003/16/2025 CBC W/DIF F neutrophils 68.9 % 34.0-7 3.0 Not Available [facility] (Lab) [address] [facility], [place], [address], 03/18/2025 00:59:55 03/16/2003/16/2025 CBC W/DIF F lymphocytes 21.7 % 15.0-5 0.0 Not Available [facility] (Lab) [address] [facility], [place], [address], 03/18/2025 00:59:55 03/16/2003/16/2025 CBC W/DIF F monocytes 8.5 % 1.0-15 .0 Not Available [facility] (Lab) [address] [facility], [place], [address], 03/18/2025 00:59:55 03/16/2003/16/2025 CBC W/DIF F eosinophils 0.3 % 0.0-8. 0 Not Available [facility] (Lab) [address] [facility], [place], [address], 03/18/2025 00:59:55 03/16/2003/16/2025 CBC W/DIF F basophils 0.3 % 0.0-2. 0 Not Available [facility] (Lab) [address] [facility], [place], [address], 03/18/2025 00:59:55 03/16/2003/16/2025 CBC W/DIF F immature granulocytes 0.3 % no define d refere nce range Immat ure Granu locyt es (IG) repre sents autom ated enume ratio n of Metam yeloc ytes, Myelo cytes and Promy elocy tyree when IG is < 5%. Blast s are not inclu ded in IG and repor ten separ ately if prese nt. Not Available [facility] (Lab) [address] [facility], [place], [address], 03/18/2025 00:59:55 03/16/2003/16/2025 CBC W/DIF F absolute neutrophils 4.8 10'3/ uL 1.5-8. 0 Not Available [facility] (Lab) [address] [facility], [place], [address], 03/18/2025 00:59:55 03/16/2003/16/2025 CBC W/DIF F absolute lymphocytes 1.5 10'3/ uL 1.0-4. 0 Not Available [facility] (Lab) [address] [facility], [place], [address], 03/18/2025 00:59:55 03/16/2003/16/2025 CBC W/DIF F absolute monocytes 0.6 10'3/ uL 0.2-1. 0 Not Available [facility] (Lab) [address] [facility], [place], [address], 03/18/2025 00:59:55 03/16/2003/16/2025 CBC W/DIF F absolute eosinophils 0.0 10'3/ uL 0.0-0. 6 Not Available [facility] (Lab) [address] [facility], [place], [address], 03/18/2025 00:59:55 03/16/2003/16/2025 CBC W/DIF F absolute basophils 0.0 10'3/ uL 0.0-0. 3 Not Available [facility] (Lab) [address] [facility], [place], [address], 03/18/2025 00:59:55 03/16/2003/16/2025 CBC W/DIF F absolute immature granulocytes 0.0 10'3/ uL 0.00-0 .10 Refer ence range s for nonbi nary/ inter sex or unspe cifie d gende r patie nts have not been estab lishe d. Pleas e refer to the follo wing table for range s estab lishe d for cisge nder patie nts and evalu ate in the clini hossein nicolasa xt of the indiv idual patie nt: https ://lane zuluaga book. nm.or g/gen derx Not Available [facility] (Lab) [address], [place], [address], 03/18/2025 00:59:55 03/16/2003/16/2025 HIV 1/2 ANTIG EN/AN TIBOD Y, REFLE X CONFI RMATI ON HIV antigen/anti body Nonrea ctive nonrea ctive HIV-1 antig en and HIV-1 /HIV- 2 antib odies were not detec ten. No labor atory evide nce of HIV infec tion. Not Available [facility] (Lab) [address] [facility], [place], [address], 03/18/2025 00:59:55 03/16/2003/16/2025 HEPAT ITIS C ANTIB RICCO SCREE N, REFLE X TO CONFI RMATI ON hepatitis C antibody Non-re active non-re active Antib odies to HCV Not Detec ten, does not exclu de the possi bilit y of expos ure to HCV. Not Available [facility] (Lab) [address] [facility], [place], [address], 03/18/2025 00:59:56 03/16/2003/16/2025 RUBEL LA IGG ANTIB RICCO, QUANT rubella antibodies, IgG Reacti ve reacti ve Not Available [facility] (Lab) [address] [facility], [place], [address], 03/18/2025 00:59:56 03/16/2003/16/2025 RUBEL LA IGG ANTIB RICCO, QUANT rubella antibodies, IgG quant 18.6 IU/mL >=10 Non-r eacti ve (Non- Immun e) <10 IU/mL React shaina (Immu ne) > or = 10 IU/mL Not Available [facility] (Lab) [address] [facility], [place], [address], 03/18/2025 00:59:56 03/16/2003/16/2025 TYPE/ RH/SC REEN ABO/Rh type O POS Not Available [facility] (Lab) [address] [facility] [facility], [place], [address], 03/18/2025 00:59:56 03/16/2003/16/2025 TYPE/ RH/SC REEN antibody screen NEG Not Available [facility] (Lab) [address] [place], [address], 03/18/2025 00:59:56 03/16/2003/16/2025 TYPE/ RH/SC REEN exp date 2024 23:59 Not Available [facility] (Lab) [address] [facility], [place], [address], 03/18/2025 00:59:56 03/16/20 25 03/16/2025 HEMOG LOBIN A1C hemoglobin A1C 5.3 % 4.0-5. 6 The Ameri can Diabe tyree Assoc iatio n recom mends that a prima ry goal of thera py shoul d be a HBA1C of < 7% and that physi cians shoul d reeva luate the treat ment regim en in patie nts with HBA1C value s consi stent ly > 8%. <5.7% Gretchen l 5.7 - 6.4% Incre ased risk for diabe tyree >=6.5 % Diagn ostic of diabe tyree <7.0% Goal of thera py >8.0% Actio n sugge sted Not Available [facility] (Lab) [address] [facility], [place], [address], 03/18/2025 00:59:56 03/16/20 25 03/16/2025 RPR SCREE N, REFLE X TITER /CONF IRMAT ION RPR qualitative Nonrea ctive nonrea ctive Not Available [facility] (Lab) [address] [place], [address], 03/18/2025 00:59:57 03/16/20 25 03/16/2025 LEAD, BLOOD (ADUL T/PED IATRI C) lead, whole blood <1.0 mcg/d L <3.5 See Note 1 Marisabel sis was perfo rmed by Valerie Estevez ed Plasm a Mass Spect romet ry (ICPM S) Note 1 This test was devel oped and its marisabel tical perfo rmanc e russell cteri stics have been deter mined by [employer] [facility]. It has not been clear ed or appro corey by the FDA. This assay has been valid ated pursu ant to the CLIA regul ation s and is used for clini hossein purpo ses. Perfo rming Organ izati on Infor matio n: Site ID: CB Name: [facility]Nicholas dakotah Justin Addre ss: [address] [place] [address] Direc tor: Anna Su s Not Available [facility] (Lab) [address] [facility] [facility], [place], [address], 03/18/2025 00:59:57 03/16/2003/16/2025 CULTU RE: URINE result report SEE RESULT S BELOW Test: Cultu re: Urine Speci men Sourc e: Urine - Clean Catch Speci men Type: Urine Speci men Date: 2024 1004 Resul t Date: 2024 Resul t Statu s: Final resul t Abnor mal: No Resul ting Lab: [facility] [address] [facility] [address] Tel: CULTU RE ----- ----- ----- --- No growt h in 1 day (dete ction level of 10,00 0 colon ies / ml.) Not Available [facility] (Lab) [address] [facility], [place], [address], 03/18/2025 15:41:18 03/16/2003/16/2025 IMAGE GUIDE D PAP AND HPV REGAR DLESS image guided Pap, HPV regardless of Pap result SEE RESULT S BELOW CASE REPOR T: Cytol ogy Gynec ologi hossein Repor t Case: [id number] Autho monica g Provi jennifer: Remy Elliott MD Colle cted: 03/16 1004 Order ing Locat ion: [place] Patho logy Recei corey: 03/17 0137 First Scree n: Eliot Bernstein, CT Speci men: Scree aramis Pap - Image d, Cervi x STATE MENT OF ADEQU ACY: Satis facto ry for evalu ation Trans forma tion zone compo nent absen t ----- ----- ----- ----- ----- ----- ----- ----- ----- ----- ----- ----- ----- ----- ----- ----- ----- ---- FINAL DIAGN OSIS: Negat shaina for Intra epith elial Lesio wayne or Josias aguilar (NIL) . Elect galileo claire by Eliot Bernstein, CT on 2024 at 1436 CDT ----- ----- ----- ----- ----- ----- ----- ----- ----- ----- ----- ----- ----- ----- ----- ----- ----- ---- HPV RESUL TS: HPV mRNA E6/E7 : No HPV mRNA Detec ten NOTE: This high risk HPV mRNA assay detec ts fourt een high- risk HPV types (16, 18, 31, 33, 35, 39, 45, 51, 52, 56, 58, 59, 66, 68) witho ut diffe renti ation . COMME NT: This speci men was revie wed by a Cytot echno logis t and/o r Patho logis t (as indic ated in this repor t) after evalu ation using the Thinp rep Imagi ng Syste m. CLINI HOSSEIN INFOR MATIO N: Menst rual Statu s: LMP (if appli cable ): Clini hossein Histo ry/Pr eviou s Pap: Type of Neopl jelena (if appli cable ): Signi fican t Clini hossein Findi ngs: Other Histo ry: Hormo yung (if appli cable ): PAP EDUCA YANELIS L NOTE: The Pap Test is a scree aramis test with an inher ent false negat shaina rate. Liqui d-bas ed sampl ing may decre ase, but will not elimi rudy, false negat shaina resul ts. A negat shaina resul t does not precl ude the prese nce and/o r devel opmen t of disea se, since the prese nce of abnor mal cells in the sampl e depen ds on the locat ion of the lesio n and sampl ing techn ique. Paul nued regul ar scree aramis is the best metho d of cance r preve ntion . If repor ten cytol ogic findi ng do not corre late with physi hossein and/o r histo rical findi ngs, furth er inves tigat ion is recom yessica d, as clini luli espinosa nted. Not Available [facility] (Lab) [address], [place], [address], 03/18/2025 15:41:19 03/16/2003/16/2025 US, obste tric, nucha l trans lucen cy No observ ation record ed. [facility] [address], [place], [address], 03/17/2025 14:15:04 03/16/2003/16/2025 US, obste tric, nucha l trans lucen cy No observ ation record ed. [email or web address] [place] [address], [place], [address], 03/16/2025 11:19:07 03/26/2003/26/2025 US, obstjames tric, limit ed No observ ation record ed. [email or web address] [place] [address], [place], [address], 04/09/2025 10:52:09 03/26/2003/26/2025 US, obstjames tric, limit ed No observ ation record ed. [email or web address] [place] [address], [place], [address], 03/26/2025 14:02:40 05/12/20 25 05/12/2025 US, obste tric, 2nd or 3rd trime ster No observ ation [facility] [address], [place], [address], 05/12/2025 18:19:45 05/12/20 25 05/12/2025 US, obste tric, follo w-up No observ ation record ed. [facility]Y Aguilae [address], [place], [address], 05/14/2025 11:08:32 Result Notes None recorded. Problems Name Problem SNOMED Code Status Onset Date Resolution Date Notes Provider Name and Address Organization Details Recorded Time Moderate asthma 890564229 Completed Rare use of inhaler Ashley sims [facility] 1 15:16:58 90938939 Completed 201909/13/2020 Christina Gale [facility] 5 10:10:56 [id number] Active 2024 Christina Gale [facility] 5 10:10:55 Problem Notes None recorded. Procedures Surgical History Date Name Laterality Status Provider Name and Address Organization Details Recorded Time 03/16/20 25 Date of Last Pap Smear completed Christina Gale [facility] 04/13/2025 09:43:20 07/01/19 02 appendectomy completed Zoraida Noel [facility] 12/18/2019 12:11:10 Imaging Results None recorded. Procedure Notes None recorded. Medical Equipment None Reported. Allergies Allergen ID Allergen Name Allergen Category Reaction Reaction Severity Criticality Documentation Date Start Date Code Code System Note Provider Name and Address Organization Details Recorded Time 1058 Substance with sulfonami de structure and antibacte rial mechanism of action (substanc e) medicatio n Not available Not available Not available 12/18/2019 12344 800 SNOMED Zoraida hood [facility] 12:11:48 Medications Name Sig Start Date Stop Date Status Note LastModified by Organization Details LastModified Time ondansetron HCl 4 mg tablet 01/28 completed Not Available Not Available Not Available ondansetron 8 mg disintegrat ing tablet DISSOLVE 1 TABLET ON THE TONGUE EVERY 6 TO 8 HOURS NEEDED 05/12 completed Not Available Not Available Not Available metoclopram yunior 5 mg tablet TAKE 1 TABLET BY MOUTH FOUR TIMES DAILY 05/12 completed Not Available Not Available Not Available dicyclomine 10 mg capsule 01/28 completed Not Available Not Available Not Available naproxen 500 mg tablet 01/28 completed Not Available Not Available Not Available Boostrix Tdap 2.5 Lf unit-8 mcg-5 Lf/0.5 mL intramuscul ar syringe ADMINISTE R 0.5ML IN THE MUSCLE DIRECTED 07/18 completed Not Available Not Available Not Available Unisom (doxylamine ) 05/12 completed Not Available Not Available Not Available active Not Available Not Avai lable Not Available multivitami n 05/12 completed Not Available Not Available Not Available Slynd 4 mg (28) tablet Take 1 tablet every day by oral route. 09/23 completed Not Available Not Available Not Available Fluarix Quad (PF) 60 mcg (15 mcg x 4)/0.5 mL IM syringe ADMINISTE R 0.5ML IN THE MUSCLE DIRECTED 07/18 completed Not Available Not Available Not Available Vitals Date Recorded Body height Body mass index (BMI) Body weight Systolic And Diastolic Provider Name and Address Organization Details Last Updated DateTime 03/16/2025 167.01 cm 23.3 kg/m2 11789.71 g 108/74 mm[Hg] Christina Gale [facility] 03/16/2025 10:10:46 Social History Question Answer Notes LastModified by Organizat ion Details LastModified Time Tobacco Smoking Status Never Smoker Zoraida hood [facility] 10/07/2020 14:13:21 Do You Have An Advance Directive? No [email or web address] Information n ot available 10/07/2020 If You Are , What Was Your Level Of Alcohol Consumption Prior To ? Occasional Information not available 10/07/2020 Are You Blind Or Do You Have Difficulty Seeing? No [email or web address] Information n ot available 08/24/2020 What Is Your Level Of Caffeine Consumption? Occasional [email or web address] Information not available 10/07/2020 In The 14 Days Before Symptom Onset, Have You Had Close Contact With A Laboratory-confirm ed COVID-19 While That Case Was Ill? No [email or web address] Information n ot available 08/24/2020 In The 14 Days Before Symptom Onset, Have You Had Close Contact With A Person Who Is Under Investigation For COVID-19 While That Person Was Ill? No [email or web address] Information not available 08/24/2020 Have You Been To An Area Known To Be High Risk For COVID-19? No Information not available 08/24/2020 Are You Deaf Or Do You Have Serious Difficulty Hearing? No Information not available 08/24/2020 What Type Of Diet Are You Following? REGULAR Information n ot available 08/24/2020 What Is The Highest Grade Or Level Of School You Have Completed Or The Highest Degree You Have Received? [id number] [email or web address] Information not available 10/07/2020 Are There Any Guns Present In Your Home? Yes [email or web address] Information not available 10/07/2020 What Was The Date Of Your Most Recent Tobacco Screening? 10/07/2020 [email or web address] Information not available 10/07/2020 Have You Ever Been Counseled For Unhealthy Alcohol Use? No [email or web address] Information not available 10/07/2020 Do You Use Protection During Sex? Usually [email or web address] Information not available 10/07/2020 Do You Use Your Seat Belt Or Car Seat Routinely? Yes [email or web address] Information not available 08/24/2020 Do You Have Smoke And Carbon Monoxide Detectors In Your Home? Yes [email or web address] Information not available 08/24/2020 How Much Tobacco Do You Smoke? No [email or web address] Information not available 12/18/2019 Do You Use Sunscreen Routinely? No Information not available 02/15/2025 Has Tobacco Cessation Counseling Been Provided? No [email or web address] Information not available 10/07/2020 Have You Used IV Drugs? No [email or web address] Information not available 10/07/2020 Sex: Unknown Functional Status Question Answer Note LastModified by Organizat ion Details LastModified Time Do you use any illicit or recreational drugs? Yes Information not available 02/15/2025 Do you or have you ever used any other forms of tobacco or nicotine? No [email or web address] Information not available 10/07/2020 What is your level of alcohol consumption? Occasional [email or web address] Information not available 12/18/2019 Do you or have you ever used smokeless tobacco? Never used smokeless tobacco [email or web address] Information not available 10/07/2020 Are you able to walk independently without assistance or assistive devices? 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 Never used electronic cigarettes Information not available 10/07/2020 What is your exercise level? Moderate [email or web address] Information not available 10/07/2020 Mental Status Question Answer Note LastModified by Organization D etails LastModified Time Do you feel stressed (tense, restless, nervous, or anxious, or unable to sleep at night)? [id number] [email or web address] Information not available 08/24/2020 Family History Relationship Description Onset Age of this Age Resolved Age Notes LastModified by Organization Details LastModified Time Paternal Aunt Malignant neoplasm of breast [email or web address] Not available 12/17 12:09:07 Paternal Grandmother Heart disease [email or web address] Not available 12/17 12:09:21 Paternal Grandmother Diabetes mellitus [email or web address] Not available 12/17 12:09:33 Father Hypertensive disorder [email or web address] Not available 12/17 12:09:51 Father Hypercholest erolemia [email or web address] Not available 12/17 12:09:58 Mother Anemia [email or web address] Not available 12/18/2019 12:10:05 Medical History Condition Response Other N Blood Transfusion N Dermatologic Disorders N Gestational Diabetes N Anxiety Disorder N Autoimmune disease N Arthritis N Polyps N Infertility N Acid Reflux (GERD) N Cancer N Varicosities N Stroke N Neurologic/Epilepsy N Fibromyalgia N Headaches N Kidney Disease N Heart Problems N Kidney or Bladder Problems N Eating Disorder N Art (IVF or FET) N Hepatitis/Liver Disease N Urinary Tract Infection N Asthma Y Trauma/Violence N Thrombophilias N Allergies (Food, seasonal, environmental ) N Breast Cancer N Drug/Latex Allergies/Reactions N Lung Disease N Defects or Inherited Disease N Breast Problem N Hematologic disorders N Anesthesia Complications N History of STI N Deep Vein Thrombosis N Polycystic ovary syndrome N History of abnormal pap N Endometriosis Y High Cholesterol N Thyroid Problems N GI Problems N Anemia N Psychiatric Illness N Ovarian Cancer N Diabetes N Pulmonary (TB, Asthma) N Eczema N Abuse/Domestic Violence N Depression/ depression N Heart Disease N Pre-Eclampsia N Hypertension N Osteoporosis N Gynecological History Statement/Question Response Abnormal Pap N Flow Heavy Date of LMP 12/19/2024 N On BCP's at Conception? N STIs/STDs N Was last menstrual period normal Y HPV Vaccine N Duration of Flow (days) 4 Current Control Method Age at First Child 26 Are cycles usually normal Y Frequency of Cycle (Q days) 29 Sexually Active? Y Menses Monthly Y Age of first menstrual cycle 10 Date of Last Pap Smear 03/16/2025 Sexual Problems? N LMP Definite Desired Control Method N Obstetrics History GPAL:G 3 P 1 0 1 1 Type Value Full Term 1 Spontaneous 1 Living 1 Total 3 Immunizations Vaccine Type Date Status Note Provider Nam e and Address Organization Details Recorded Time Tdap 08/31/2019 completed Zoraida hood [facility] 12/18/2019 11:45:13 Past Encounters Encounter ID Performer Location Encounter Start Date Encounter Closed Date Diagnosis/Indication Diagnosis SNOMED-CT Code Diagnosis ICD10 Code Diagnosis IMO Codes Diagnosis Note [id number] JARED MARSHALL MD [place] [address],[facility] [place] [address] 02/15/2025 13:47:53 02/15/2025 14:30:58 [id number] JARED MARSHALL MD [place] [address] [place] [address] 02/15/2025 14:19:25 02/15/2025 15:40:13 Nausea and vomiting 47520602 R11.2 [id number] test positive 050361009 Z32.01 [id number] 1. Exam today within normal limits.2. Ultrasound today confirms GA and viability. EDC . *GC/Clamyd ia testing done: will f/u as indicated. 4. ACOG guidelines and plan of care for reviewed with patient. All questions answered.5 . Return to office at 12 weeks for new OB visit6. Will need new OB labs at next visit.7. Genetic screening: declines [id number] JARED MARSHALL MD [place] [address] [address] 03/16/2025 09:22:30 03/16/2025 10:19:29 screening [id number] Z36.82 Z3A.12 [id number] JARED MARSHALL MD [place] [address] [address] 03/16/2025 09:26:22 03/16/2025 11:10:22 screening [id number] Z36.89 Gestation period, 12 weeks [id number] Z3A.12 [id number] Gynecologi c examination 27061023 Z01.419 Z11.51 Health Concerns Section Related Observation LastModified by Organization Detai ls LastModified Time None Recorded Concern Status LastModified by Organization Details LastModified Time None Recorded Payers Encounter Date Sequence Insurance Name Policy Number Policy Grijalva Covered Member ID Grijalva Member ID Guarantor Name 03/16/2025 1 [place] ([facility]) [id number] 1 Golden Bentley [id number] Rhina Bentley OBGyn Episode Ob Episode Information Episode Created Date Number of Fetuses Patient Bloodtype Patient rh Status Prepregnancy Weight lbs Domestic Partner Domestic Partner Phone Father Name [employer] Status 03/16/20 25 1 O Positive Golden OPEN Fetus Data First Name Last Name Admitted to NICU Weight (g) Sex Living Outcome Pediatric Complications Fetus ID Race Codes Race Delivery Type [id number] Zeus Calculation Initial Zeus Date Initial Exam Date Initial Exam Provider Initial Ultrasound Date Last Menstrual Period Date Ultra Sound Weeks Gestation 09/27/2025 03/16/2025 02/15/2025 12/19/2024 8 Eighteen To Twenty Week Zeus Update Ultra Sound Date Fundal Height At Umbil Quickening Date Ultra Sound Latest Weeks Gestation Final Zeus Confirmed By Final Zeus Confirmed Date Final Zeus Date Ultra Sound Latest Days Gestation 05/12/20 25 20 09/26/19 26 4 Pre- Flowsheet Flowsheet Date 03/16/2025 Rhodes Score Blood Edema Fundus Height Fundus Units Glucose Ketones Leukocytes Nitrite Labor Signs Protein Cervic Dilation Cervic Effacement Cervic Station Type Weight in lbs Pre/Post Dialysis Refused BP Diastolic BP Location Tested BP Systolic BP Type Fetus Heart Rate Present Fetus Movement Comments Flowsheet Date 03/16/2025 Rhodes Score Blood Edema Fundus Height Fundus Units Glucose Ketones Leukocytes Nitrite Labor Signs Protein Cervic Dilation Cervic Effacement Cervic Station Type Weight in lbs Pre/Post Dialysis Refused Weight 143.381018169798 BP Diastolic BP Location Tested BP Systolic BP Type 74 L arm 108 sitting Fetus Heart Rate Present A 162 Fetus Movement A No Comments Patient presents to [facility] care. Hx of 1 full term . uncomplicated. No bleeding or cramping. Mild nausea, using zofran PRN. NT/NB wnl today, desires NIPT. Will draw today with new OB labs. RTC 4 weeks for routine care. Flowsheet Date 03/26/2025 Rhodes Score Blood Edema Fundus Height Fundus Units Glucose Ketones Leukocytes Nitrite Labor Signs Protein Cervic Dilation Cervic Effacement Cervic Station Type Weight in lbs Pre/Post Dialysis Refused BP Diastolic BP Location Tested BP Systolic BP Type Fetus Heart Rate Present Fetus Movement Comments Flowsheet Date 04/13/2025 Rhodes Score Blood Edema Fundus Height Fundus Units Glucose Ketones Leukocytes Nitrite Labor Signs Protein Cervic Dilation Cervic Effacement Cervic Station Type Weight in lbs Pre/Post Dialysis Refused 145.0668489807 BP Diastolic BP Location Tested BP Systolic BP Type 72 L arm 110 sitting Fetus Heart Rate Present A 150 Fetus Movement A No Comments Doing well. No cramping or b leeding. LR male NIPT! Other OB labs wnl. Had an episode of brown bleeding 2 weeks ago, US normal. Discussed anatomy US for next visit. RTC 4 weeks. Flowsheet Date 05/12/2025 Rhodes Score Blood Edema Fundus Height Fundus Units Glucose Ketones Leukocytes Nitrite Labor Signs Protein Cervic Dilation Cervic Effacement Cervic Station Type Weight in lbs Pre/Post Dialysis Refused BP Diastolic BP Location Tested BP Systolic BP Type Fetus Heart Rate Present Fetus Movement Comments Flowsheet Date 05/12/2025 Rhodes Score Blood Edema Fundus Height Fundus Units Glucose Ketones Leukocytes Nitrite Labor Signs Protein Cervic Dilation Cervic Effacement Cervic Station Type Weight in lbs Pre/Post Dialysis Refused 150.378905799501 BP Diastolic BP Location Tested BP Systolic BP Type 72 L arm 114 sitting Fetus Heart Rate Present Fetus Movement A Yes Comments Flowsheet Date 06/08/2025 Rhodes Score Blood Edema Fundus Height Fundus Units Glucose Ketones Leukocytes Nitrite Labor Signs Protein Cervic Dilation Cervic Effacement Cervic Station 20 cm Type Weight in lbs Pre/Post Dialysis Refused 156.389628223621 BP Diastolic BP Location Tested BP Systolic BP Type 73 L arm 111 sitting Fetus Heart Rate Present A 150 Present Fetus Movement A Yes Comments doing well +FM, plan gct at next visit, occ cramping, increase hydration rest precautions given f/u 4 weeks Menstrual History Last Menstrual Date Menses Monthly On Bcp Conception Prior Menses Frequency Hcg Plus Date Menarche Onset Age 0612/19/2024 true Delivery Information Delivery Date Delivery Type Labor Anesthesia Weeks Gestation Incision Type Labor Labor Length Hrs Delivered By Post Complications Tubal Sterilization Discharge Date Comments Discharge Information Feeding Method Contraceptive Method Maternal HG B and HCT Levels
[2025-06-13 15:45] VITALS: RESP 18; TEMP 36.8
--- OUTSIDE RECORDS SUMMARY | 2025-06-13 15:45 | XMS_ITS | Continuity of Care Document ---
Author Organization [facility] Address [address] [place] [address] [place] [address] Assessment Encounter Date Assessment Date Assessment LastModified by Organization Details LastModified Time 06/08/2025 06/08/2025 Patient is _24__weeks . Discussed plan. Not available 06/08/2025 13:36:17 Plan of Treatment Reminders Order Date Submit Date Provider Last Modified By Organization Details Last Modified Time Details Appointments U/S OB GROWTH 2025 04:00P M ULTRASOUND Not available Not available Not available OB ROUTINE 2025 05:00P M Rodney MISTRY MD Not available Not available Not available Lab None recorde d. Referral None recorde d. Procedures None recorde [...] Not Available [facility] [address], [place], [address], 03/26/2025 02:58:30 03/26/2003/26/2025 [UNIT Y] ANEUP LOIDY NIPT 22Q11.2 microdeletio n LOW RISK <1 in 10,000 normal Not Available [facility] [address], [place], [address], 03/26/2025 02:58:30 03/26/20 25 03/26/2025 [UNIT Y] ANEUP LOIDY NIPT sex chromosome aneuploidy NOT DETECT ED normal Not Available [facility] [address], [place], [address], 03/26/2025 02:58:30 03/26/20 25 03/26/2025 [UNIT Y] ANEUP LOIDY NIPT monosomy X LOW RISK <1 in 10,000 normal Not Available [facility] [address], [place], [address], 03/26/2025 02:58:30 03/26/20 25 03/26/2025 [UNIT Y] ANEUP LOIDY NIPT trisomy 13 LOW RISK <1 in 10,000 normal Not Available [facility] [address], [place], [address], 03/26/2025 02:58:30 03/26/20 25 03/26/2025 [UNIT Y] ANEUP LOIDY NIPT trisomy 18 LOW RISK <1 in 10,000 normal Not Available [facility] [address], [place], [address], 03/26/2025 02:58:30 03/26/20 25 03/26/2025 [UNIT Y] ANEUP LOIDY NIPT trisomy 21 LOW RISK <1 in 10,000 normal Not Available [facility] [address], [place], [address], 03/26/2025 02:58:30 03/26/20 25 03/26/2025 [UNIT Y] ANEUP LOIDY NIPT sex MALE normal Not Available [facility] [address], [place], [address], 03/26/2025 02:58:30 03/26/20 25 03/26/2025 [UNIT Y] ANEUP LOIDY NIPT gestation SINGLE TON normal Not Available [facility] [address], [place], [address], 03/26/2025 02:58:30 03/26/2003/26/2025 [UNIT Y] ANEUP RC NIPT for detailed report, see pdf See PDF normal Not Available [facility] [address], [place], [address], 03/26/2025 02:58:30 03/16/2003/16/2025 HEPAT ITIS B SURFA CE ANTIG EN hepatitis B surface antigen Non-re active non-re active This assay was perfo rmed using [employer] ratio n reage nts and test kits. Value s obtai magali with other assay metho ds or kits canno t be used inter lane eably . Not Available [facility] (Lab) [address] [facility], [place], [address], 03/18/2025 00:59:55 03/16/2003/16/2025 CBC W/DIF F WBC 6.9 10'3/ uL 3.5-10 .5 Not Available [facility] (Lab) [address] [place], [address], 03/18/2025 00:59:55 03/16/2003/16/2025 CBC W/DIF F RBC 4.18 10'6/ uL (based on docume nted legal sex) 3.80-5 .20 Not Available [facility] (Lab) [address] [place], [address], 03/18/2025 00:59:55 03/16/2003/16/2025 CBC W/DIF F HGB 12.8 g/dL (based on docume nted legal sex) 11.6-1 5.4 Not Available [facility] (Lab) [address] [place], [address], 03/18/2025 00:59:55 03/16/2003/16/2025 CBC W/DIF F HCT 39.1 % (based on docume nted legal sex) 34.0-4 5.0 Not Available [facility] (Lab) [address], [place], [address], 03/18/2025 00:59:55 03/16/2003/16/2025 CBC W/DIF F MCV 93.5 fL 80.0-9 9.0 Not Available [facility] (Lab) [address], [place], [address], 03/18/2025 00:59:55 03/16/2003/16/2025 CBC W/DIF F MCH 30.6 pg 27.0-3 4.0 Not Available [facility] (Lab) [address], [place], [address], 03/18/2025 00:59:55 03/16/2003/16/2025 CBC W/DIF F MCHC 32.7 g/dL 32.0-3 5.5 Not Available [facility] (Lab) [address], [place], [address], 03/18/2025 00:59:55 03/16/2003/16/2025 CBC W/DIF F RDW 13.5 % 11.0-1 5.0 Not Available [facility] (Lab) [address], [place], [address], 03/18/2025 00:59:55 03/16/2003/16/2025 CBC W/DIF F plt 205 10'3/ uL 150-40 0 Not Available [facility] (Lab) [address], [place], [address], 03/18/2025 00:59:55 03/16/2003/16/2025 CBC W/DIF F MPV 10.5 fL 8.8-12 .1 Not Available [facility] (Lab) [address], [place], [address], 03/18/2025 00:59:55 03/16/2003/16/2025 CBC W/DIF F NRBC's 0.0 % 0.0 Not Available [facility] (Lab) [address], [place], [address], 03/18/2025 00:59:55 03/16/2003/16/2025 CBC W/DIF F absolute NRBCs 0.0 10'3/ uL no refere nce range establ ished Not Available [facility] (Lab) [address], [place], [address], 03/18/2025 00:59:55 03/16/2003/16/2025 CBC W/DIF F neutrophils 68.9 % 34.0-7 3.0 Not Available [facility] (Lab) [address], [place], [address], 03/18/2025 00:59:55 03/16/20 25 03/16/2025 CBC W/DIF F lymphocytes 21.7 % 15.0-5 0.0 Not Available [facility] (Lab) [address] [facility], [place], [address], 03/18/2025 00:59:55 03/16/20 25 03/16/2025 CBC W/DIF F monocytes 8.5 % 1.0-15 .0 Not Available [facility] (Lab) [address] [facility], [place], [address], 03/18/2025 00:59:55 03/16/2003/16/2025 CBC W/DIF F eosinophils 0.3 % 0.0-8. 0 Not Available [facility] (Lab) [address], [address], 03/18/2025 00:59:55 03/16/20 25 03/16/2025 CBC W/DIF F basophils 0.3 % 0.0-2. 0 Not Available [facility] (Lab) [address] , [place], [address], 03/18/2025 00:59:55 03/16/2003/16/2025 CBC W/DIF F immature granulocytes 0.3 % no define d refere nce range Immat ure Granu locyt es (IG) repre sents autom ated enume ratio n of Metam yeloc ytes, Myelo cytes and Promy elocy tyree when IG is < 5%. Blast s are not inclu ded in IG and repor ten separ ately if prese nt. Not Available [facility] (Lab) [address] [facility], [place], [address], 03/18/2025 00:59:55 03/16/2003/16/2025 CBC W/DIF F absolute neutrophils 4.8 10'3/ uL 1.5-8. 0 Not Available [facility] (Lab) [address] [facility], [place], [address], 03/18/2025 00:59:55 03/16/2003/16/2025 CBC W/DIF F absolute lymphocytes 1.5 10'3/ uL 1.0-4. 0 Not Available [facility] (Lab) [address] [facility], [place], [address], 03/18/2025 00:59:55 03/16/2003/16/2025 CBC W/DIF F absolute monocytes 0.6 10'3/ uL 0.2-1. 0 Not Available [facility] (Lab) [address] [facility], [place], [address], 03/18/2025 00:59:55 03/16/2003/16/2025 CBC W/DIF F absolute eosinophils 0.0 10'3/ uL 0.0-0. 6 Not Available [facility] (Lab) [address], [place], [address], 03/18/2025 00:59:55 03/16/2003/16/2025 CBC W/DIF F absolute basophils 0.0 10'3/ uL 0.0-0. 3 Not Available [facility] (Lab) [address] [facility], [place], [address], 03/18/2025 00:59:55 03/16/2003/16/2025 CBC W/DIF F absolute immature granulocytes 0.0 10'3/ uL 0.00-0 .10 Refer ence range s for nonbi nary/ inter sex or unspe cifie d gende r patie nts have not been estab lishe d. Pleas e [facility] table for range s estab lishe d for cisge nder patie nts and evalu ate in the clini hossien nicolasa xt of the indiv idual patie nt: https ://la bhand book. nm.or g/gen derx Not Available [facility] (Lab) [address], [place], [address], 03/18/2025 00:59:55 03/16/2003/16/2025 HIV 1/2 ANTIG EN/AN TIBOD Y, REFLE X CONFI RMATI ON HIV antigen/anti body Nonrea ctive nonrea ctive HIV-1 antig en and HIV-1 /HIV- 2 antib odies were not detec ten. No labor atory evide nce of HIV infec tion. Not Available [facility] (Lab) [address], [place], [address], 03/18/2025 00:59:55 03/16/2003/16/2025 HEPAT ITIS C ANTIB RICCO SCREE N, REFLE X TO CONFI RMATI ON hepatitis C antibody Non-re active non-re active Antib odies to HCV Not Detec ten, does not exclu de the possi bilit y of expos ure to HCV. Not Available [facility] (Lab) [address], [place], [address], 03/18/2025 00:59:56 03/16/2003/16/2025 RUBEL LA IGG ANTIB RICCO, QUANT rubella antibodies, IgG Reacti ve reacti ve Not Available [facility] (Lab) [address] [facility], [place], [address], 03/18/2025 00:59:56 03/16/2003/16/2025 RUBEL LA IGG ANTIB RICCO, QUANT rubella antibodies, IgG quant 18.6 IU/mL >=10 Non-r eacti ve (Non- Immun e) <10 IU/mL React shaina (Immu ne) > or = 10 IU/mL Not Available [facility] (Lab) [address] [facility], [place], [address], 03/18/2025 00:59:56 03/16/2003/16/2025 TYPE/ RH/SC REEN ABO/Rh type O POS Not Available [facility] (Lab) [address], [place], [address], 03/18/2025 00:59:56 03/16/2003/16/2025 TYPE/ RH/SC REEN antibody screen NEG Not Available [facility] (Lab) [address] [facility], [place], [address], 03/18/2025 00:59:56 03/16/2003/16/2025 TYPE/ RH/SC REEN exp date 2024 23:59 Not Available [facility] (Lab) [address] [facility], [place], [address], 03/18/2025 00:59:56 03/16/2003/16/2025 HEMOG LOBIN A1C hemoglobin A1C 5.3 % 4.0-5. 6 The Ameri can Diabe tyree Assoc iatio n recom mends that a prima ry goal of thergayle claire be a HBA1C of < 7% and that physi gene claire reeva luate the treat ment regim en in patie nts with HBA1C value s consi stent ly > 8%. <5.7% Gretchen l 5.7 - 6.4% Incre ased risk for diabe tyree >=6.5 % Diagn ostic of diabe tyree <7.0% Goal of thera py >8.0% Actio n sugge sted Not Available [facility] (Lab) [address] [facility], [place], [address], 03/18/2025 00:59:56 03/16/20 25 03/16/2025 RPR SCREE N, REFLE X TITER /CONF IRMAT ION RPR qualitative Nonrea ctive nonrea ctive Not Available [facility] (Lab) [address] [facility], [place], [address], 03/18/2025 00:59:57 03/16/20 25 03/16/2025 LEAD, BLOOD (ADUL T/PED IATRI C) lead, whole blood <1.0 mcg/d L <3.5 See Note 1 Marisabel sis was perfo rmed by Valerie Estevez ed Plasm a Mass Spect romet ry (ICPM S) Note 1 This test was devel oped and its marisabel tical perfo rmanc e russell cteri stics have been deter mined by [employer]. It has not been clear ed or appro corey by the FDA. This assay has been valid ated pursu ant to the CLIA regul ation s and is used for clini hossein purpo ses. Perfo rming Organ izati on Infor matio n: Site ID: [id number] Name: [employer]-Cristopher Justin Addre ss: [id number] [place], [place] [phone] Direc tor: Anna Su s Not Available [facility] (Lab) [address] [facility], [place], [address], 03/18/2025 00:59:57 03/16/2003/16/2025 CULTU RE: URINE result report SEE RESULT S BELOW Test: Cultu re: Urine Speci men Sourc e: Urine - Clean Catch Speci men Type: Urine Speci men Date: 2024 1004 Resul t Date: 2024 2155 Resul t Statu s: Final resul t Abnor mal: No Resul ting Lab: [facility] [address] [facility] [place] [address] Tel: CULTU RE ----- ----- ----- --- No growt h in 1 day (dete ction level of 10,00 0 colon ies / ml.) Not Available [facility] (Lab) [address] [facility], [place], [address], 03/18/2025 15:41:18 03/16/20 25 03/16/2025 IMAGE GUIDE D PAP AND HPV REGAR DLESS image guided Pap, HPV regardless of Pap result SEE RESULT S BELOW CASE REPOR T: Cytol ogy Gynec ologi hossein Repor t Case: [id number] Autho monica g Provi jennifer: Remy Elliott MD Colle cted: 03/16 1004 Order ing Locat ion: [place] Patho log[facility] Recei corey: 03/17 0137 First Salena n: Eliot Bernstein CT Speci men: Salena self Pap - Image d, Cervi x STATE MENT OF ADEQU ACY: Satis facto ry for evalu ation Trans forma tion zone compo nent absen t ----- ----- ----- ----- ----- ----- ----- ----- ----- ----- ----- ----- ----- ----- ----- ----- ----- ---- FINAL DIAGN OSIS: Negat shaina for Intra epith elial Melissa black or Josias aguilar ([facility]) . Elect galileo jo d by Eliot Bernstein CT on 2024 at 1436 CDT ----- [...] as clini luli espinosa nted. Not Available [facility] (Lab) [address], [place], [address], 03/18/2025 15:41:19 03/16/20 25 03/16/2025 US, obste tric, nucha l trans lucen cy No observ ation record ed. MACEY Orellana [address], [place], [address], 03/17/2025 14:15:04 03/16/20 25 03/16/2025 US, obste tric, nucha l trans lucen cy No observ ation record ed. [email or web address] [facility] [address], [place], [address], 03/16/2025 11:19:07 03/26/20 25 03/26/2025 US, obste tric, limit ed No observ ation record ed. [email or web address] [place] [address] [address], [place], [address], 04/09/2025 10:52:09 03/26/20 25 03/26/2025 US, obste tric, limit ed No observ ation record ed. [email or web address] [facility] [address], [place], [address], 03/26/2025 14:02:40 05/12/20 25 05/12/2025 US, obste tric, 2nd or 3rd trime ster No observ ation record ed. [facility] [address], [place], [address], 05/12/2025 18:19:45 05/12/20 25 05/12/2025 US, obste tric, follo w-up No observ ation record ed. MACEY Renya [address], [place], [address], 05/14/2025 11:08:32 Result Notes None recorded. Problems Name Problem SNOMED Code Status Onset Date Resolution Date Notes Provider Name and Address Organization Details Recorded Time Moderate asthma 776299159 Completed Rare use of inhaler Ashley hood [facility] 15:16:58 77813420 Completed 201909/13/2020 Christina hood [facility] 5 10:10:56 94304319 Active 2024 Christina Gale [facility] 5 10:10:55 Problem Notes None recorded. Procedures Surgical History Date Name Laterality Status Provider Name and Address Organization Details Recorded Time 03/16/20 25 Date of Last Pap Smear completed Christinaclaire Gale [facility] 04/13/2025 09:43:20 07/01/19 02 appendectomy completed Zoraida Noel [facility] 12/18/2019 12:11:10 Imaging Results None recorded. [...] Not available Not available Not available 12/18/2019 96108 8003 SNOMED Zoraida Noel [facility] 0 12:11:48 Medications Name Sig Start Date Stop [...] Available Not Available Vitals Date Recorded Body weight Systolic And Diastolic Provider Name and Address Organization Details Last Updated DateTime 06/08/2025 62154.66177 g 111/73 mm[Hg] Leesa Gregg [facility] 06/08/2025 12:52:03 Social History Question Answer Notes LastModified by Organizat ion Details LastModified Time Tobacco Smoking Status Never Smoker Zoraida hood, [facility] 10/07/2020 14:13:21 Do You Have An Advance Directive? No [email or web address] Information n ot available 10/07/2020 If You Are , What Was Your Level Of Alcohol Consumption Prior To ? Occasional [email or web address] Information not available 10/07/2020 Are You Blind Or Do You Have Difficulty Seeing? No [email or web address] Information n ot available 08/24/2020 What Is Your Level Of Caffeine Consumption? Occasional [email or web address] Information not available 10/07/2020 In The 14 Days Before Symptom Onset, Have You Had Close Contact With A Laboratory-confirm ed COVID-19 While That Case Was Ill? No Information n ot available 08/24/2020 In The 14 Days Before Symptom Onset, Have You Had Close Contact With A Person Who Is Under Investigation For COVID-19 While That Person Was Ill? No [email or web address] Information not available 08/24/2020 Have You Been To An Area Known To Be High Risk For COVID-19? No [email or web address] Information not available 08/24/2020 Are You Deaf Or Do You Have Serious Difficulty Hearing? No [email or web address] Information not available 08/24/2020 What Type Of Diet Are You Following? REGULAR [email or web address] Information n ot available 08/24/2020 What Is The Highest Grade Or Level Of School You Have Completed Or The Highest Degree You Have Received? [id number] [email or web address] Information not available 10/07/2020 Are There Any Guns Present In Your Home? Yes [email or web address] Information not available 10/07/2020 What Was The Date Of Your Most Recent Tobacco Screening? 10/07/2020 [email or web address] Information not available 10/07/2020 Have You Ever Been Counseled For Unhealthy Alcohol Use? No [email or web address] Information not available 10/07/2020 Do You Use Protection During Sex? Usually [email or web address] Information not available 10/07/2020 Do You Use Your Seat Belt Or Car Seat Routinely? Yes [email or web address] Information not available 08/24/2020 Do You Have Smoke And Carbon Monoxide Detectors In Your Home? Yes [email or web address] Information not available 08/24/2020 How Much Tobacco Do You Smoke? No [email or web address] Information not available 12/18/2019 Do You Use Sunscreen Routinely? No Information not available 02/15/2025 Has Tobacco Cessation Counseling Been Provided? No [email or web address] Information not available 10/07/2020 Have You Used IV Drugs? No [email or web address] Information not available 10/07/2020 Sex: Unknown Functional Status Question Answer Note LastModified by Organizat ion Details LastModified Time Do you use any illicit or recreational drugs? Yes Information not available 02/15/2025 Do you or have you ever used any other forms of tobacco or nicotine? No Information not available 10/07/2020 What is your level of alcohol consumption? Occasional [email or web address] Information not available 12/18/2019 Do you or have you ever used smokeless tobacco? Never used smokeless tobacco [email or web address] Information not available 10/07/2020 Are you able to walk independently without assistance or assistive devices? 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 Never used electronic cigarettes [email or web address] Information not available 10/07/2020 What is your exercise level? Moderate [email or web address] Information not available 10/07/2020 Mental Status Question Answer Note LastModified by Organization D etails LastModified Time Do you feel stressed (tense, restless, nervous, or anxious, or unable to sleep at night)? [id number] [email or web address] Information not available 08/24/2020 Family History Relationship Description Onset Age of this Age Resolved Age Notes LastModified by Organization Details LastModified Time Paternal Aunt Malignant neoplasm of breast [email or web address] Not available 12/17 12:09:07 Paternal Grandmother Heart disease [email or web address] Not available 12/17 12:09:21 Paternal Grandmother Diabetes mellitus [email or web address] Not available 12/17 12:09:33 Father Hypertensive disorder [email or web address] Not available 12/17 12:09:51 Father Hypercholest erolemia [email or web address] Not available 12/17 12:09:58 Mother Anemia [email or web address] Not available 12/18/2019 12:10:05 Medical History Condition Response Allergies (Food, seasonal, environmental ) N Other N Drug/Latex Allergies/Reactions N Blood Transfusion N Breast Cancer N Dermatologic Disorders N Lung Disease N Defects or Inherited Disease N Breast Problem N Gestational Diabetes N Hematologic disorders N Anesthesia Complications N History of STI N Deep Vein Thrombosis N Polycystic ovary syndrome N Anxiety Disorder N Autoimmune disease N Arthritis N Polyps N Infertility N Acid Reflux (GERD) N History of abnormal pap N Cancer N Varicosities N Stroke N Neurologic/Epilepsy N Endometriosis Y High Cholesterol N Fibromyalgia N Headaches N Kidney Disease N Heart Problems N Thyroid Problems N Kidney or Bladder Problems N GI Problems N Eating Disorder N Anemia N Art (IVF or FET) N Psychiatric Illness N Ovarian Cancer N Diabetes N Pulmonary (TB, Asthma) N Hepatitis/Liver Disease N Eczema N Urinary Tract Infection N Abuse/Domestic Violence N Asthma Y Trauma/Violence N Depression/ depression N Heart Disease N Pre-Eclampsia N Hypertension N Osteoporosis N Thrombophilias N Gynecological History Statement/Question Response Abnormal Pap [...] Details Recorded Time Tdap 08/31/2019 completed Zoraida hood, [facility] 12/18/2019 11:45:13 Past Encounters Encounter ID Performer Location Encounter Start Date Encounter Closed Date Diagnosis/Indication Diagnosis SNOMED-CT Code Diagnosis ICD10 Code Diagnosis IMO Codes Diagnosis Note [id number] Stewart Mistry MD [facility] [address],[place] [address] 05/12/2025 16:24:53 05/13/2025 08:50:53 Screening status 590477911 Z36.3 Z3A.20 [id number] Regina Hernandez CNM [facility] [address],[place] [address] 05/12/2025 16:45:57 05/12/2025 17:55:07 Gestation period, 20 weeks 22943044 Z3A.20 [id number] Regina Hernandez CNM [facility] [address],[place] [address] 06/08/2025 12:40:26 06/08/2025 13:43:15 Gestation period, 24 weeks 577111352 Z3A.24 [id number] Health Concerns Section Related Observation LastModified by Organization Detai ls LastModified Time None Recorded Concern Status LastModified by Organization Details LastModified Time None Recorded Payers Encounter Date Sequence Insurance Name Policy Number Policy Grijalva Covered Member ID Grijalva Member ID Guarantor Name 06/08/2025 1 FLORIN MCCLOUD (PPO) [id number] 1 Golden Bentley [id number] Rhina Bentley Notes Date Note Type Note Provider Name and Address Organization Details Recorded Time 06/08/2025 text/html Generic HPI TemplateReported by Patient Regina Hernandez CNM [address], [place], [address], [facility] 06/08/2025 13:36:43 OBGyn Episode Ob Episode Information Episode Created Date Number of Fetuses Patient Bloodtype Patient rh Status Prepregnancy Weight lbs Domestic Partner Domestic Partner Phone Father Name Painter Chassis Status 03/16/20 25 1 O Positive Golden OPEN Fetus Data First Name Last Name Admitted to NICU Weight (g) Sex Living Outcome Pediatric Complications Fetus ID Race Codes Race Delivery Type [id number] Zeus Calculation Initial Zeus Date Initial Exam [...] Gestation 05/12/20 25 20 09/26/19 26 4 Pre-raz Flowsheet Flowsheet Date 03/16/2025 Rhodes Score Blood [...] Weight in lbs Pre/Post Dialysis Refused Weight 143.215594211132 BP Diastolic BP Location Tested BP Systolic BP Type 74 L arm 108 sitting Fetus Heart Rate Present A 162 Fetus Movement A No Comments Patient presents to [facility] care. Hx of 1 full [...] Type Weight in lbs Pre/Post Dialysis Refused 145.6059727410 BP Diastolic BP Location Tested BP Systolic [...] Type Weight in lbs Pre/Post Dialysis Refused 150.964496152604 BP Diastolic BP Location Tested BP Systolic BP Type 72 L arm 114 sitting Fetus Heart Rate Present Fetus Movement A Yes Comments Flowsheet Date 06/08/2025 Rhodes Score Blood Edema Fundus Height Fundus Units Glucose Ketones Leukocytes Nitrite Labor Signs Protein Cervic Dilation Cervic Effacement Cervic Station 20 cm Type Weight in lbs Pre/Post Dialysis Refused 156.704060435920 BP Diastolic BP Location Tested BP Systolic [...]
--- OUTSIDE RECORDS SUMMARY | 2025-06-13 15:45 | XMS_ITS | Continuity of Care Document ---
Author Organization [facility] Address [address] [place] [address] Assessment No assessment recorded. Plan of Treatment [...] Not Available [facility] [address], [place], [address], 03/26/2025 02:58:30 03/26/20 25 03/26/2025 [UNIT Y] ANEUP LOIDY NIPT 22Q11.2 microdeletio n LOW RISK <1 in 10,000 normal Not Available [facility] [address], [place], [address], 03/26/2025 02:58:30 03/26/20 25 03/26/2025 [UNIT Y] ANEUP LOIDY NIPT sex chromosome aneuploidy NOT DETECT ED normal Not Available [facility] [address], [place], [address], 03/26/2025 02:58:30 03/26/2003/26/2025 [UNIT Y] ANEUP LOIDY NIPT monosomy X LOW RISK <1 in 10,000 normal Not Available [facility] [address], [place], [address], 03/26/2025 02:58:30 03/26/20 25 03/26/2025 [UNIT Y] ANEUP LOIDY NIPT trisomy 13 LOW RISK <1 in 10,000 normal Not Available [facility] [address], [place], [address], 03/26/2025 02:58:30 03/26/20 25 03/26/2025 [UNIT Y] ANEUP LOIDY NIPT trisomy 18 LOW RISK <1 in 10,000 normal Not Available [facility] [address], [place], [address], 03/26/2025 02:58:30 03/26/20 25 03/26/2025 [UNIT Y] ANEUP LOIDY NIPT trisomy 21 LOW RISK <1 in 10,000 normal Not Available [facility] [address], [place], [address], 03/26/2025 02:58:30 03/26/20 25 03/26/2025 [UNIT Y] ANEUP LOIDY NIPT sex MALE normal Not Available [facility] [address], [place], [address], 03/26/2025 02:58:30 03/26/2003/26/2025 [UNIT Y] ANEUP LOIDY NIPT gestation SINGLE TON normal Not Available [facility] [address], [place], [address], 03/26/2025 02:58:30 03/26/20 03/26/2025 [UNIT Y] DAWOOD TATUM NIPT for detailed report, see pdf See PDF normal Not Available [facility] [address], [place], [address], 03/26/2025 02:58:30 03/16/2003/16/2025 HEPAT ITIS B SURFA CE ANTIG EN hepatitis B surface antigen Non-re active non-re active This assay was perfo rmed using [employer] ratio n reage nts and test kits. Value s obtai magali with other assay metho ds or kits canno t be used inter lane eably . Not Available [facility] (Lab) [address], [place], [address], 03/18/2025 00:59:55 03/16/2003/16/2025 CBC W/DIF F WBC 6.9 10'3/ uL 3.5-10 .5 Not Available [facility] (Lab) [address], [place], [address], 03/18/2025 00:59:55 03/16/2003/16/2025 CBC W/DIF F RBC 4.18 10'6/ uL (based on docume nted legal sex) 3.80-5 .20 Not Available [facility] (Lab) [address], [place], [address], 03/18/2025 00:59:55 03/16/2003/16/2025 CBC W/DIF F HGB 12.8 g/dL (based on docume nted legal sex) 11.6-1 5.4 Not Available [facility] (Lab) [address] [place], [address], 03/18/2025 00:59:55 03/16/2003/16/2025 CBC W/DIF F HCT 39.1 % (based on docume nted legal sex) 34.0-4 5.0 Not Available [facility] (Lab) [address], [place], [address], 03/18/2025 00:59:55 03/16/20 25 03/16/2025 CBC W/DIF F MCV 93.5 fL 80.0-9 9.0 Not Available [facility] (Lab) [address], [place], [address], 03/18/2025 00:59:55 03/16/20 25 03/16/2025 CBC W/DIF F MCH 30.6 pg 27.0-3 4.0 Not Available [facility] (Lab) [address], [place], [address], 03/18/2025 00:59:55 03/16/20 25 03/16/2025 CBC W/DIF F MCHC 32.7 g/dL 32.0-3 5.5 Not Available [facility] (Lab) [address], [place], [address], 03/18/2025 00:59:55 03/16/20 25 03/16/2025 CBC W/DIF F RDW 13.5 % 11.0-1 5.0 Not Available [facility] (Lab) [address], [place], [address], 03/18/2025 00:59:55 03/16/20 25 03/16/2025 CBC W/DIF F plt 205 10'3/ uL 150-40 0 Not Available [facility] (Lab) [address], [place], [address], 03/18/2025 00:59:55 03/16/20 25 03/16/2025 CBC W/DIF F MPV 10.5 fL 8.8-12 .1 Not Available [facility] (Lab) [address], [place], [address], 03/18/2025 00:59:55 03/16/20 25 03/16/2025 CBC W/DIF F NRBC's 0.0 % 0.0 Not Available [facility] (Lab) [address] [facility], [place], [address], 03/18/2025 00:59:55 03/16/2003/16/2025 CBC W/DIF F absolute NRBCs 0.0 10'3/ uL no refere nce range establ ished Not Available [facility] (Lab) [address] [facility], [place], [address], 03/18/2025 00:59:55 03/16/20 25 03/16/2025 CBC W/DIF F neutrophils 68.9 % 34.0-7 3.0 Not Available [facility] (Lab) [address] [facility], [place], [address], 03/18/2025 00:59:55 03/16/2003/16/2025 CBC W/DIF F lymphocytes 21.7 % 15.0-5 0.0 Not Available [facility] (Lab) [address] [place], [address], 03/18/2025 00:59:55 03/16/20 25 03/16/2025 CBC W/DIF F monocytes 8.5 % 1.0-15 .0 Not Available [facility] (Lab) [address] [facility], [place], [address], 03/18/2025 00:59:55 03/16/20 25 03/16/2025 CBC W/DIF F eosinophils 0.3 % 0.0-8. 0 Not Available [facility] (Lab) [address] [place], [address], 03/18/2025 00:59:55 03/16/20 25 03/16/2025 CBC W/DIF F basophils 0.3 % 0.0-2. 0 Not Available [facility] (Lab) [address] [place], [address], 03/18/2025 00:59:55 03/16/20 25 03/16/2025 CBC W/DIF F immature granulocytes 0.3 % no define d refere nce range Immat ure Granu locyt es (IG) repre sents autom ated enume ratio n of Metam yeloc ytes, Myelo cytes and Promy elocy tyree when IG is < 5%. Blast s are not inclu ded in IG and repor ten separ ately if prese nt. Not Available [facility] (Lab) [address] [facility], [place], [address], 03/18/2025 00:59:55 03/16/2003/16/2025 CBC W/DIF F absolute neutrophils 4.8 10'3/ uL 1.5-8. 0 Not Available [facility] (Lab) [address] [facility], [place], [address], 03/18/2025 00:59:55 03/16/2003/16/2025 CBC W/DIF F absolute lymphocytes 1.5 10'3/ uL 1.0-4. 0 Not Available [facility] (Lab) [address] [facility], [place], [address], 03/18/2025 00:59:55 03/16/2003/16/2025 CBC W/DIF F absolute monocytes 0.6 10'3/ uL 0.2-1. 0 Not Available [facility] (Lab) [address] [facility], [place], [address], 03/18/2025 00:59:55 03/16/2003/16/2025 CBC W/DIF F absolute eosinophils 0.0 10'3/ uL 0.0-0. 6 Not Available [facility] ([facility]) [address] [facility], [place], [address], 03/18/2025 00:59:55 03/16/2003/16/2025 CBC W/DIF F absolute basophils 0.0 10'3/ uL 0.0-0. 3 Not Available [facility] (Lab) [address] [place], [address], 03/18/2025 00:59:55 03/16/2003/16/2025 CBC W/DIF F absolute immature granulocytes 0.0 10'3/ uL 0.00-0 .10 Refer ence range s for nonbi nary/ inter sex or unspe cifie d gende r patie nts have not been estab lishe d. Pleas e refer to [facility] for range s estab lishe d for cisge nder patie nts and evalu ate in the clini hossein nicolasa xt of the indiv idual patie nt: https ://lane zuluaga book. nm.or g/gen derx Not Available [facility] (Lab) [address], [place], [address], 03/18/2025 00:59:55 03/16/2003/16/2025 HIV 1/2 ANTIG EN/AN TIBOD Y, REFLE X CONFI RMATI ON HIV antigen/anti body Nonrea ctive nonrea ctive HIV-1 antig en and HIV-1 /HIV- 2 antib odies were not detec ten. No labor atory evide nce of HIV infec tion. Not Available [facility] (Lab) [address], [place], [address], 03/18/2025 00:59:55 03/16/2003/16/2025 HEPAT ITIS C ANTIB RICCO SCREE N, REFLE X TO CONFI RMATI ON hepatitis C antibody Non-re active non-re active Antib odies to HCV Not Detec ten, does not exclu de the possi bilit y of expos ure to HCV. Not Available [facility] (Lab) [address], [place], [address], 03/18/2025 00:59:56 03/16/2003/16/2025 RUBEL LA IGG ANTIB RICCO, QUANT rubella antibodies, IgG Reacti ve reacti ve Not Available [facility] (Lab) [address], [place], [address], 03/18/2025 00:59:56 03/16/2003/16/2025 RUBEL LA IGG ANTIB RICCO, QUANT rubella antibodies, IgG quant 18.6 IU/mL >=10 Non-r eacti ve (Non- Immun e) <10 IU/mL React shaina (Immu ne) > or = 10 IU/mL Not Available [facility] (Lab) [address], [place], [address], 03/18/2025 00:59:56 03/16/2003/16/2025 TYPE/ RH/SC REEN ABO/Rh type O POS Not Available [facility] (Lab) [address] [facility], [place], [address], 03/18/2025 00:59:56 03/16/2003/16/2025 TYPE/ RH/SC REEN antibody screen NEG Not Available [facility] (Lab) [address] [facility], [place], [address], 03/18/2025 00:59:56 03/16/2003/16/2025 TYPE/ RH/SC REEN exp date 2024 23:59 Not Available [facility] (Lab) [address] [facility], [place], [address], 03/18/2025 00:59:56 03/16/2003/16/2025 HEMOG LOBIN A1C hemoglobin A1C 5.3 % 4.0-5. 6 The Ameri can Diabe tyree Assoc iatio n recom mends that a prima ry goal of thera py fabby d be a HBA1C of < 7% and that physi cians shoul d reeva luate the treat ment regim en in patie nts with HBA1C value s consi stent ly > 8%. <5.7% Gretchen l 5.7 - 6.4% Incre ased risk for diabe tyree >=6.5 % Diagn ostic of diabe tyree <7.0% Goal of thera py >8.0% Actio n sugge sted Not Available [facility] (Lab) [address], [place], [address], 03/18/2025 00:59:56 03/16/2003/16/2025 RPR SCREE N, REFLE X TITER /CONF IRMAT ION RPR qualitative Nonrea ctive nonrea ctive Not Available [facility] (Lab) [address] [facility], [place], [address], 03/18/2025 00:59:57 03/16/2003/16/2025 LEAD, BLOOD (ADUL T/PED IATRI C) lead, whole blood <1.0 mcg/d L <3.5 See Note 1 Marisabel sis was perfo rmed by Valerie sEtevez ed Plasm a Mass Spect romet ry (ICPM S) Note 1 This test was devel oped and its marisabel tical perfo rmanc e russell cteri stics have been deter mined by [employer] [facility] [employer]. It has not been clear ed or appro corey by the FDA. This assay has been valid ated pursu ant to the CLIA regul ation s and is used for clini hossein purpo ses. Perfo rming Organ izati on Infor matio n: Site ID: [id number] Name: [employer] [facility]-Cristopher Justin Addre ss: [address] [place] [address] Direc tor: Anna Su s Not Available [facility] (Lab) [address] [facility], [place], [address], 03/18/2025 00:59:57 03/16/2003/16/2025 CULTU RE: URINE result report SEE RESULT S BELOW Test: Cultu re: Urine Speci men Sourc e: Urine - Clean Catch Speci men Type: Urine Speci men Date: 2024 1004 Resul t Date: 20245 Resul t Statu s: Final resul t Abnor mal: No Resul ting Lab: [facility] [address] [facility] [address] Tel: CULTU RE ----- ----- ----- --- No growt h in 1 day (dete ction level of 10,00 0 colon ies / ml.) Not Available [facility] (Lab) [address], [place], [address], 03/18/2025 15:41:18 03/16/20 25 03/16/2025 IMAGE GUIDE D PAP AND HPV REGAR DLESS image guided Pap, HPV regardless of Pap result SEE RESULT S BELOW CASE REPOR T: Cytol ogy Gynec ologi hossein Repor t Case: [id number] Autho monica shani Provi jennifer: Remy Elliott MD Colle cted: 03/16 1004 Order ing Locat ion: [place] Patho logy Recei corey: 03/17 0137 First Salena n: Eliot Bernstein CT Speci men: Salena tsaig Pap - Image d, Cervi x STATE MENT OF ADEQU ACY: Satis facto ry for evalu ation Trans forma tion zone compo nent absen t ----- ----- ----- ----- ----- ----- ----- ----- ----- ----- ----- ----- ----- ----- ----- ----- ----- ---- FINAL DIAGN OSIS: Negat shaina for Intra epith elial Melissa black or Josias aguilar (NIL) . Elect galileo jo d by Eliot Bernstein, CT on 2024 at [...] as clini luli espinosa nted. Not Available [facility] (Lab) [address], [place], [address], 03/18/2025 15:41:19 03/16/2003/16/2025 US, obste tric, nucha l trans lucen cy No observ ation record ed. MACEY Orellana [address], [place], [address], 03/17/2025 14:15:04 03/16/2003/16/2025 US, obste tric, nucha l trans lucen cy No observ ation record ed. [email or web address] [place] [address], [place], [address], 03/16/2025 11:19:07 03/26/20 25 03/26/2025 US, obste tric, limit ed No observ ation record ed. [email or web address] [place] [address], [place], [address], 04/09/2025 10:52:09 03/26/20 25 03/26/2025 US, obste tric, limit ed No observ ation record ed. [email or web address] [place] [address], [place], [address], 03/26/2025 14:02:40 05/12/20 25 05/12/2025 US, obste tric, 2nd or 3rd trime ster No observ ation record ed. [email or web address] [address], [place], [address], 05/12/2025 18:19:45 05/12/20 25 05/12/2025 US, obste tric, follo w-up No observ ation record ed. MACEY Reyna [address], [place], [address], 05/14/2025 11:08:32 Result Notes None recorded. Problems Name Problem SNOMED Code Status Onset Date Resolution Date Notes Provider Name and Address Organization Details Recorded Time Moderate asthma 445353587 Completed Rare use of inhaler Ashely hood [facility] 1 15:16:58 90280656 Completed 201909/13/2020 Christina hood [facility] 5 10:10:56 39098824 Active 2024 Christina hood [facility] 5 10:10:55 Problem Notes None recorded. Procedures Surgical History Date Name Laterality Status Provider Name and Address Organization Details Recorded Time 03/16/20 25 Date of Last Pap Smear completed Christina Gale [facility] 04/13/2025 09:43:20 07/01/19 02 appendectomy completed Zoraida Noel [facility] 12/18/2019 12:11:10 Imaging Results None recorded. [...] Not available Not available Not available 12/18/2019 39793 [id number] SNOMED Zoraida Noel [facility] 0 12:11:48 Medications Name Sig Start [...] Not Available Vitals Date Recorded Body weight Body mass index (BMI) Body height Systolic And Diastolic Provider Name and Address Organization Details Last Updated DateTime 04/13/2025 44455.893 65 g 23.6 kg/m2 167.01 cm 110/72 mm[Hg] Christina Gale [facility] 04/13/2025 09:42:55 Social History Question Answer Notes LastModified by Organizat ion Details LastModified Time Tobacco Smoking Status Never Smoker Zoraida hood, [facility] 10/07/2020 14:13:21 Do You Have An Advance Directive? No [email or web address] Information n ot available 10/07/2020 If You Are , What Was Your Level Of Alcohol Consumption Prior To ? Occasional [email or web address] Information not available 10/07/2020 Are You Blind Or Do You Have Difficulty Seeing? No [email or web address] Information n ot available 08/24/2020 What Is Your Level Of Caffeine Consumption? Occasional [email or web address] Information not available 10/07/2020 In The 14 Days Before Symptom Onset, Have You Had Close Contact With A Laboratory-confirm ed COVID-19 While That Case Was Ill? No [email or web address] Information n ot available 08/24/2020 In The 14 Days Before Symptom Onset, Have You Had Close Contact With A Person Who Is Under Investigation For COVID-19 While That Person Was Ill? No [email or web address] Information not available 08/24/2020 Have You Been To An Area Known To Be High Risk For COVID-19? No [email or web address] Information not available 08/24/2020 Are You Deaf Or Do You Have Serious Difficulty Hearing? No [email or web address] Information not available 08/24/2020 What Type Of Diet Are You Following? REGULAR [email or web address] Information n ot available 08/24/2020 What Is The Highest Grade Or Level Of School You Have Completed Or The Highest Degree You Have Received? [id number] [email or web address] Information not available 10/07/2020 Are There Any Guns Present In Your Home? Yes [email or web address] Information not available 10/07/2020 What Was The Date Of Your Most Recent Tobacco Screening? 10/07/2020 Information not available 10/07/2020 Have You Ever Been Counseled For Unhealthy Alcohol Use? No [email or web address] Information not available 10/07/2020 Do You Use Protection During Sex? Usually Information not available 10/07/2020 Do You Use Your Seat Belt Or Car Seat Routinely? Yes [email or web address] Information not available 08/24/2020 Do You Have Smoke And Carbon Monoxide Detectors In Your Home? Yes [email or web address] Information not available 08/24/2020 How Much Tobacco Do You Smoke? No [email or web address] Information not available 12/18/2019 Do You Use Sunscreen Routinely? No Information not available 02/15/2025 Has Tobacco Cessation Counseling Been Provided? No [email or web address] Information not available 10/07/2020 Have You Used IV Drugs? No [email or web address] Information not available 10/07/2020 Sex: Unknown Functional Status Question Answer Note LastModified by Organizat ion Details LastModified Time Do you use any illicit or recreational drugs? Yes Information not available 02/15/2025 Do you or have you ever used any other forms of tobacco or nicotine? No [email or web address] Information not available 10/07/2020 What is your level of alcohol consumption? Occasional [email or web address] Information not available 12/18/2019 Do you or have you ever used smokeless tobacco? Never used smokeless tobacco [email or web address] Information not available 10/07/2020 Are you able to walk independently without assistance or assistive devices? 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 Never used electronic cigarettes [email or web address] Information not available 10/07/2020 What is your exercise level? Moderate [email or web address] Information not available 10/07/2020 Mental Status Question Answer Note LastModified by Organization D etails LastModified Time Do you feel stressed (tense, restless, nervous, or anxious, or unable to sleep at night)? [id number] [email or web address] Information not available 08/24/2020 Family History Relationship Description Onset Age of this Age Resolved Age Notes LastModified by Organization Details LastModified Time Paternal Aunt Malignant neoplasm of breast [email or web address] Not available 12/17 12:09:07 Paternal Grandmother Heart disease [email or web address] Not available 12/17 12:09:21 Paternal Grandmother Diabetes mellitus Not available 12/17 12:09:33 Father Hypertensive disorder [email or web address] Not available 12/17 12:09:51 Father Hypercholest erolemia [email or web address] Not available 12/17 12:09:58 Mother Anemia [email or web address] Not available 12/18/2019 12:10:05 Medical History Condition Response Allergies (Food, seasonal, environmental ) N Other N Breast Cancer N Drug/Latex Allergies/Reactions N Blood Transfusion N Dermatologic Disorders N Lung Disease N Defects or Inherited Disease N Breast Problem N Gestational Diabetes N Hematologic disorders N Anesthesia Complications N History of STI N Deep Vein Thrombosis N Polycystic ovary syndrome N Anxiety Disorder N Autoimmune disease N Arthritis N Infertility N Polyps N Acid Reflux (GERD) N History of abnormal pap N Cancer N Stroke N Varicosities N Neurologic/Epilepsy N Endometriosis Y High Cholesterol N Headaches N Fibromyalgia N Kidney Disease N Heart Problems N Kidney or Bladder Problems N Thyroid Problems N GI Problems N Eating Disorder [...] Details Recorded Time Tdap 08/31/2019 completed Zoraida Noel [facility] 12/18/2019 11:45:13 Past Encounters Encounter ID Performer Location Encounter Start Date Encounter Closed Date Diagnosis/Indication Diagnosis SNOMED-CT Code Diagnosis ICD10 Code Diagnosis IMO Codes Diagnosis Note [id number] JARED MARSHALL MD [place] [address] [address] 03/16/2025 09:22:30 03/16/2025 10:19:29 screening 767424259 Z36.82 Z3A.12 [id number] MD Kacey BANERJEE [address],[place] [address] 03/16/2025 09:26:22 03/16/2025 11:10:22 screening 536512985 Z36.89 Gestation period, 12 weeks 36239114 Z3A.12 1133987 Gynecologi c examination 38425639 Z01.419 Z11.51 [id number] JARED MARSHALL MD [place] [address],[place] [address] 03/26/2025 12:55:04 03/26/2025 13:34:31 Threatened miscarriage 13986661 O20.0 Z3A.13 [id number] JARED MARSHALL MD [place] [address],[place] [address] 04/13/2025 09:29:34 04/13/2025 10:08:49 care status 244840818 Z34.82 [id number] Health Concerns Section Related Observation LastModified by Organization Detai ls LastModified Time None Recorded Concern Status LastModified by Organization Details LastModified Time None Recorded Payers Encounter Date Sequence Insurance Name Policy Number Policy Grijalva Covered Member ID Grijalva Member ID Guarantor Name 04/13/2025 1 [place] [id number] 1 Golden Bentley [id number] Rhina Bentley Notes Date Note Type Note Provider Name and Address Organization Details Recorded Time 04/13/2025 text/html Generic HPI TemplateReported by Patient JARED MARSHALL MD [address], [place], [address], [place] [facility] 04/13/2025 10:07:54 OBGyn Episode Ob Episode Information Episode Created Date Number of Fetuses Patient Bloodtype Patient rh Status Prepregnancy Weight lbs Domestic Partner Domestic Partner Phone Father Name Formulation Scientist Status 03/16/20 25 1 O Positive Golden OPEN Fetus Data First Name Last Name Admitted to NICU Weight (g) Sex Living Outcome Pediatric Complications Fetus ID Race Codes Race Delivery Type [id number] Zeus Calculation Initial Zeus Date Initial Exam [...] Present Fetus Movement Comments Flowsheet Date 03/16/2025 Hrodes Score Blood Edema Fundus Height Fundus Units Glucose Ketones Leukocytes Nitrite Labor Signs Protein Cervic Dilation Cervic Effacement Cervic Station Type Weight in lbs Pre/Post Dialysis Refused Weight 143.896561701414 BP Diastolic BP Location Tested BP Systolic BP Type 74 L arm 108 sitting Fetus Heart Rate Present A 162 Fetus Movement A No Comments Patient presents to [facility]. Hx of 1 full term . [...] Type Weight in lbs Pre/Post Dialysis Refused 145.7778794667 BP Diastolic BP Location Tested BP Systolic [...] Type Weight in lbs Pre/Post Dialysis Refused 150.752709644039 BP Diastolic BP Location Tested BP Systolic BP Type 72 L arm 114 sitting Fetus Heart Rate Present Fetus Movement A Yes Comments Flowsheet Date 06/08/2025 Rhodes Score Blood Edema Fundus Height Fundus Units Glucose Ketones Leukocytes Nitrite Labor Signs Protein Cervic Dilation Cervic Effacement Cervic Station 20 cm Type Weight in lbs Pre/Post Dialysis Refused 156.991243374820 BP Diastolic BP Location Tested BP Systolic [...]
--- OUTSIDE RECORDS SUMMARY | 2025-06-13 15:45 | XMS_ITS | Data Portability ---
Author Organization [facility] Address [address] [place] [address] [place] [address] Assessment Encounter Date Assessment Date Assessment LastModified by Organization Details LastModified Time 05/12/2025 05/12/2025 Patient is ___weeks . Discussed plan. Not available 05/12/2025 17:40:24 06/08/2025 06/08/2025 Patient is _24__weeks . Discussed plan. [email or web address] Not available 06/08/2025 13:36:17 Plan of Treatment [...] recorde d. Surgeries None recorde d. Imaging US, obstetr ic, 2nd or 3rd trimest er 2024 025 [email or web address] [address], [address], [place], [address], 05/13/2025 17:14:12 US, obstetr ic, limited 2024 025 [email or web address] [address], [address], [place], [address], 03/26/2025 15:49:42 Medication Orders None recorde d. Patient TargetsNo targets recorded. Patient InstructionsNo instructions recorded. Reason for Referral None Reported. Results Created Date Observation Date Name Description Value Unit Range Abnormal Flag Note LastModifiedBy Organization Detail LastModifiedTime 03/26/2003/26/2025 [UNIT Y] ANEUP LOIDY NIPT fraction 11.1% normal Not Available [facility] [address], [place], [address], 03/26/2025 02:58:30 03/26/2003/26/2025 [UNIT Y] ANEUP LOIDY NIPT 22Q11.2 microdeletio n LOW RISK <1 in 10,000 normal Not Available [facility] [address], [place], [address], 03/26/2025 02:58:30 03/26/2003/26/2025 [UNIT Y] ANEUP LOIDY NIPT sex chromosome aneuploidy NOT DETECT ED normal Not Available [facility] [address], [place], [address], 03/26/2025 02:58:30 03/26/20 25 03/26/2025 [UNIT Y] ANEUP LOIDY NIPT monosomy X LOW RISK <1 in 10,000 normal Not Available [facility] [address], [place], [address], 03/26/2025 02:58:30 03/26/2003/26/2025 [UNIT Y] ANEUP LOIDY NIPT trisomy 13 LOW RISK <1 in 10,000 normal Not Available [facility] [address], [place], [address], 03/26/2025 02:58:30 03/26/2003/26/2025 [UNIT Y] ANEUP LOIDY NIPT trisomy 18 LOW RISK <1 in 10,000 normal Not Available [facility] [address], [place], [address], 03/26/2025 02:58:30 03/26/202025 [UNIT Y] ANEUP LOIDY NIPT trisomy 21 LOW RISK <1 in 10,000 normal Not Available [facility] [address], [place], [address], 03/26/2025 02:58:30 03/26/20 25 03/26/2025 [UNIT Y] ANEUP LOIDY NIPT sex MALE normal Not Available [facility] [address], [place], [address], 03/26/2025 02:58:30 03/26/20 25 03/26/2025 [UNIT Y] ANEUP LOIDY NIPT gestation SINGLE TON normal Not Available [facility] [address], [place], [address], 03/26/2025 02:58:30 03/26/20 25 03/26/2025 [UNIT Y] ANEUP LOIDY NIPT for detailed report, see pdf See PDF normal Not Available [facility] [address], [place], [address], 03/26/2025 02:58:30 03/16/2003/16/2025 HEPAT ITIS B SURFA CE ANTIG EN hepatitis B surface antigen Non-re active non-re active This assay was perfo rmed using [employer] ratio n reage nts and test kits. Value s obtai magali with other assay metho ds or kits canno t be used inter lane eably . Not Available [facility] (Lab) [address], [place], [address], 03/18/2025 00:59:55 03/16/2003/16/2025 CBC W/DIF F WBC 6.9 10'3/ uL 3.5-10 .5 Not Available [facility] (Lab) [address], [place], [address], 03/18/2025 00:59:55 03/16/2003/16/2025 CBC W/DIF F RBC 4.18 10'6/ uL (based on docume nted legal sex) 3.80-5 .20 Not Available [facility] (Lab) [address], [place], [address], 03/18/2025 00:59:55 03/16/2003/16/2025 CBC W/DIF F HGB 12.8 g/dL (based on docume nted legal sex) 11.6-1 5.4 Not Available [facility] (Lab) [address], [place], [address], 03/18/2025 00:59:55 03/16/2003/16/2025 CBC W/DIF F HCT 39.1 % (based on docume nted legal sex) 34.0-4 5.0 Not Available [facility] (Lab) [address], [place], [address], 03/18/2025 00:59:55 03/16/2003/16/2025 CBC W/DIF F MCV 93.5 fL 80.0-9 9.0 Not Available [facility] (Lab) [address], [place], [address], 03/18/2025 00:59:55 03/16/2003/16/2025 CBC W/DIF F MCH 30.6 pg 27.0-3 4.0 Not Available [facility] (Lab) [address], [place], [address], 03/18/2025 00:59:55 03/16/2003/16/2025 CBC W/DIF F MCHC 32.7 g/dL 32.0-3 5.5 Not Available [facility] (Lab) [address], [place], [address], 03/18/2025 00:59:55 03/16/2003/16/2025 CBC W/DIF F RDW 13.5 % 11.0-1 5.0 Not Available [facility] (Lab) [address] [facility], [place], [address], 03/18/2025 00:59:55 03/16/2003/16/2025 CBC W/DIF F plt 205 10'3/ uL 150-40 0 Not Available [facility] (Lab) [address] [facility], [place], [address], 03/18/2025 00:59:55 03/16/20 25 03/16/2025 CBC W/DIF F MPV 10.5 fL 8.8-12 .1 Not Available [facility] (Lab) [address] [facility], [place], [address], 03/18/2025 00:59:55 03/16/2003/16/2025 CBC W/DIF F NRBC's 0.0 % 0.0 Not Available [facility] (Lab) [address] [facility], [place], [address], 03/18/2025 00:59:55 03/16/2003/16/2025 CBC W/DIF F absolute NRBCs 0.0 10'3/ uL no refere nce range establ ished Not Available [facility] (Lab) [address] [facility], [place], [address], 03/18/2025 00:59:55 03/16/2003/16/2025 CBC W/DIF F neutrophils 68.9 % 34.0-7 3.0 Not Available [facility] (Lab) [address] [facility], [place], [address], 03/18/2025 00:59:55 03/16/2003/16/2025 CBC W/DIF F lymphocytes 21.7 % 15.0-5 0.0 Not Available [facility] (Lab) [address] [facility], [place], [address], 03/18/2025 00:59:55 09/16/20 25 03/16/2025 CBC W/DIF F monocytes 8.5 % 1.0-15 .0 Not Available [facility] (Lab) [address] [facility], [place], [address], 03/18/2025 00:59:55 03/16/2003/16/2025 CBC W/DIF F eosinophils 0.3 % 0.0-8. 0 Not Available [facility] (Lab) [address] [facility], [place], [address], 03/18/2025 00:59:55 03/16/2003/16/2025 CBC W/DIF F basophils 0.3 % 0.0-2. 0 Not Available [facility] (Lab) [address] [facility], [place], [address], 03/18/2025 00:59:55 03/16/2003/16/2025 CBC W/DIF F immature granulocytes 0.3 % no define d refere nce range Immat ure Granu locyt es (IG) repre sents autom ated enume ratio n of Metam yeloc ytes, Myelo cytes and Promy elocy tyree when IG is < 5%. Blast s are not inclu ded in IG and repor ten separ ately if prese nt. Not Available [facility] (Lab) [address] [facility], [place], [address], 03/18/2025 00:59:55 03/16/2003/16/2025 CBC W/DIF F absolute neutrophils 4.8 10'3/ uL 1.5-8. 0 Not Available [facility] (Lab) [address] [facility], [place], [address], 03/18/2025 00:59:55 03/16/2003/16/2025 CBC W/DIF F absolute lymphocytes 1.5 10'3/ uL 1.0-4. 0 Not Available [facility] (Lab) [address] [facility], [place], [address], 03/18/2025 00:59:55 03/16/2003/16/2025 CBC W/DIF F absolute monocytes 0.6 10'3/ uL 0.2-1. 0 Not Available [facility] (Lab) [address] [facility], [place], [address], 03/18/2025 00:59:55 03/16/2003/16/2025 CBC W/DIF F absolute eosinophils 0.0 10'3/ uL 0.0-0. 6 Not Available [facility] (Lab) [address] [facility], [place], [address], 03/18/2025 00:59:55 03/16/2003/16/2025 CBC W/DIF F absolute basophils 0.0 10'3/ uL 0.0-0. 3 Not Available [facility] (Lab) [address] [facility], [place], [address], 03/18/2025 00:59:55 03/16/2003/16/2025 CBC W/DIF F absolute immature granulocytes 0.0 10'3/ uL 0.00-0 .10 Refer ence range s for nonbi nary/ inter sex or unspe cifie d gende r patie nts have not been estab lishe d. Pleas e refer to the chungo wing table for range s estab lishe d for cisge nder patie nts and evalu ate in the clini hossein nicolasa xt of the indiv idual patie nt: https ://lane zuluaga book. nm.or g/gen derx Not Available [facility] (Lab) [address], [place], [address], 03/18/2025 00:59:55 03/16/2003/16/2025 HIV 1/2 ANTIG EN/AN TIBOD Y, REFLE X CONFI RMATI ON HIV antigen/anti body Nonrea ctive nonrea ctive HIV-1 antig en and HIV-1 /HIV- 2 antib odies were not detec ten. No labor atory evide nce of HIV infec tion. Not Available [facility] (Lab) [address] [facility], [place], [address], 03/18/2025 00:59:55 03/16/2003/16/2025 HEPAT ITIS C ANTIB RICCO SCREE N, REFLE X TO CONFI RMATI ON hepatitis C antibody Non-re active non-re active Antib odies to HCV Not Detec ten, does not exclu de the possi bilit y of expos ure to HCV. Not Available [facility] (Lab) [address], [place], [address], 03/18/2025 00:59:56 03/16/2003/16/2025 RUBEL LA IGG ANTIB RICCO, QUANT rubella antibodies, IgG Reacti ve reacti ve Not Available [facility] (Lab) [address], [place], [address], 03/18/2025 00:59:56 03/16/20 25 03/16/2025 RUBEL LA IGG ANTIB RICCO, QUANT rubella antibodies, IgG quant 18.6 IU/mL >=10 Non-r eacti ve (Non- Immun e) <10 IU/mL React shaina (Immu ne) > or = 10 IU/mL Not Available [facility] (Lab) [address], [place], [address], 03/18/2025 00:59:56 03/16/2003/16/2025 TYPE/ RH/SC REEN ABO/Rh type O POS Not Available [facility] (Lab) [address], [place], [address], 03/18/2025 00:59:56 03/16/2003/16/2025 TYPE/ RH/SC REEN antibody screen NEG Not Available [facility] (Lab) [address], [place], [address], 03/18/2025 00:59:56 03/16/2003/16/2025 TYPE/ RH/SC REEN exp date 2024 23:59 Not Available [facility] (Lab) [address] [facility], [place], [address], 03/18/2025 00:59:56 03/16/2003/16/2025 HEMOG LOBIN A1C hemoglobin [...] >8.0% Actio n sugge sted Not Available [facility] (Lab) [address] [facility], [place], [address], 03/18/2025 00:59:56 03/16/2003/16/2025 RPR SCREE N, REFLE X TITER /CONF IRMAT ION RPR qualitative Nonrea ctive nonrea ctive Not Available [facility] (Lab) [address] [facility], [place], [address], 03/18/2025 00:59:57 03/16/2003/16/2025 LEAD, BLOOD (ADUL T/PED IATRI C) lead, whole blood <1.0 mcg/d L <3.5 See Note 1 Marisabel sis was perfo rmed by Valerie Estevez ed Plasm a Mass Spect romet ry (ICPM S) Note 1 This test was devel oped and its marisabel tical perfo rmanc e russell cteri stics have been deter mined by [employer] ostic s. It has not been clear ed or appro corey by the FDA. This assay has been valid ated pursu ant to the CLIA regul ation s and is used for clini hossein purpo ses. Perfo rming Organ izati on Infor mattin n: Site ID: CB Name: [employer] ostic sCasey Justin Addre ss: [address] [place] [address] Dire tor: Anna qiu V Georges s Not Available [facility] (Lab) [address] [facility], [place], [address], 03/18/2025 00:59:57 03/16/20 25 03/16/2025 CULTU RE: URINE result report SEE RESULT S BELOW Test: Cultu re: Urine Speci men Sourc e: Urine - Clean Catch Speci men Type: Urine Speci men Date: 2024 1004 Resul t Date: 2024 2155 Resul t Statu s: Final resul t Abnor mal: No Resul ting Lab: [facility] [address] [facility] [address] Tel: CULTU RE ----- ----- ----- --- No growt h in 1 day (dete ction level of 10,00 0 colon ies / ml.) Not Available [facility] (Lab) [address] [facility], [place], [address], 03/18/2025 15:41:18 03/16/2003/16/2025 IMAGE GUIDE D PAP AND HPV REGAR DLESS image guided Pap, HPV regardless of Pap result SEE RESULT S BELOW CASE REPOR T: Cytol ogy Gynec ologi hossein Repor t Case: [id number] Autho monica mcleod Provi jennifer: Remy Elliott MD Colle cted: [...] (NIL) . Elect galileo claire by Eliot Bernstein CT on 2024 at [...] is recom yessica d, as clini luli warra nted. Not Available [facility] (Lab) [address], [place], [address], 03/18/2025 15:41:19 03/16/2003/16/2025 US, obste tric, nucha l trans lucen cy No observ ation record ed. MACEYKASEY Orellana [address], [place], [address], 03/17/2025 14:15:04 03/16/20 25 03/16/2025 US, obste tric, nucha l trans lucen cy No observ ation record ed. [email or web address] [facility] [address], [place], [address], 03/16/2025 11:19:07 03/26/20 25 03/26/2025 US, obste tric, limit ed No observ ation record ed. [email or web address] [facility] [address], [place], [address], 04/09/2025 10:52:09 03/26/2003/26/2025 US, obste tric, limit ed No observ ation record ed. [email or web address] [facility] [address], [place], [address], 03/26/2025 14:02:40 05/12/2005/12/2025 US, obstjames tric, 2nd or 3rd trime ster No observ ation record ed. [email or web address] [address], [place], [address], 05/12/2025 18:19:45 05/12/2005/12/2025 US, obste tric, follo w-up No observ ation record ed. MACEY Orellana [address], [place], [address], 05/14/2025 11:08:32 Result Notes None recorded. Problems Name Problem SNOMED Code Status Onset Date Resolution Date Notes Provider Name and Address Organization Details Recorded Time Moderate asthma 429341422 Completed Rare use of inhaler Ashley sims [facility] 1 15:16:58 [id number] Completed 201909/13/[address] [facility] 5 10:10:56 [id number] Active [address] [facility] 5 10:10:55 Problem Notes None recorded. Procedures Surgical History Date Name Laterality Status Provider Name and Address Organization Details Recorded Time 03/16/20 Date of Last Pap Smear completed Christina Gale [facility] 04/13/2025 09:43:20 07/01/19 02 appendectomy completed Zoraida Noel [facility] 12/18/2019 12:11:10 Imaging Results None [...] Not available Not available Not available 12/18/2019 56534 [id number] [facility] 0 12:11:48 Medications Name Sig Start [...] Address Organization Details Last Updated DateTime 04/13/2025 01813.893 65 g 23.6 kg/m2 167.01 cm 110/72 mm[Hg] Christina Gale [facility] 04/13/2025 09:42:55 Date Recorded Body weight Systolic And Diastolic Provider Name and Address Organization Details Last Updated DateTime 05/12/2025 33436.8555 g 114/72 mm[Hg] Leesa Gregg [facility] 05/12/2025 17:41:39 Date Recorded Body weight Systolic And Diastolic Provider Name and Address Organization Details Last Updated DateTime 06/08/2025 22375.70365 g 111/73 mm[Hg] Leesa Gregg [facility] 06/08/2025 12:52:03 Social History Question Answer Notes LastModified by Organizat ion Details LastModified Time Tobacco Smoking Status Never Smoker Zoraida Noel [facility], [facility] 10/07/2020 14:13:21 Do You Have An Advance Directive? No [email or web address] Information n ot available 10/07/2020 If You Are , What Was Your Level Of Alcohol Consumption Prior To ? Occasional [email or web address] Information not available 10/07/2020 Are You Blind Or Do You Have Difficulty Seeing? No [email or web address] Information n ot available 08/24/2020 What Is Your Level Of Caffeine Consumption? Occasional [email or web address] Information not available 10/07/2020 In The 14 Days Before Symptom Onset, Have You Had Close Contact With A Laboratory-confirm ed COVID-19 While That Case Was Ill? No [email or web address] Information n ot available 08/24/2020 In The 14 Days Before Symptom Onset, Have You Had Close Contact With A Person Who Is Under Investigation For COVID-19 While That Person Was Ill? No [email or web address] Information not available 08/24/2020 Have You Been To An Area Known To Be High Risk For COVID-19? No [email or web address] Information not available 08/24/2020 Are You Deaf Or Do You Have Serious Difficulty Hearing? No [email or web address] Information not available 08/24/2020 What Type Of Diet Are You Following? REGULAR [email or web address] Information n ot available 08/24/2020 What Is The Highest Grade Or Level Of School You Have Completed Or The Highest Degree You Have Received? DR59380-2 [email or web address] Information not available 10/07/2020 Are There Any Guns Present In Your Home? Yes [email or web address] Information not available 10/07/2020 What Was The Date Of Your Most Recent Tobacco Screening? 10/07/2020 [email or web address] Information not available 10/07/2020 Have You Ever Been Counseled For Unhealthy Alcohol Use? No [email or web address] Information not available 10/07/2020 Do You Use Protection During Sex? Usually [email or web address] Information not available 10/07/2020 Do You Use Your Seat Belt Or Car Seat Routinely? Yes [email or web address] Information not available 08/24/2020 Do You Have Smoke And Carbon Monoxide Detectors In Your Home? Yes [email or web address] Information not available 08/24/2020 How Much Tobacco Do You Smoke? No [email or web address] Information not available 12/18/2019 Do You Use Sunscreen Routinely? No Information not available 02/15/2025 Has Tobacco Cessation Counseling Been Provided? No [email or web address] Information not available 10/07/2020 Have You Used IV Drugs? No [email or web address] Information not available 10/07/2020 Sex: Unknown Functional Status Question Answer Note LastModified by Organizat ion Details LastModified Time Do you use any illicit or recreational drugs? Yes Information not available 02/15/2025 Do you or have you ever used any other forms of tobacco or nicotine? No [email or web address] Information not available 10/07/2020 What is your level of alcohol consumption? Occasional [email or web address] Information not available 12/18/2019 Do you or have you ever used smokeless tobacco? Never used smokeless tobacco [email or web address] Information not available 10/07/2020 Are you able to walk independently without assistance or assistive devices? 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 Never used electronic cigarettes [email or web address] Information not available 10/07/2020 What is your exercise level? Moderate [email or web address] Information not available 10/07/2020 Mental Status Question Answer Note LastModified by Organization D etails LastModified Time Do you feel stressed (tense, restless, nervous, or anxious, or unable to sleep at night)? [id number] [email or web address] Information not available 08/24/2020 Family History Relationship Description Onset Age of this Age Resolved Age Notes LastModified by Organization Details LastModified Time Paternal Aunt Malignant neoplasm of breast [email or web address] Not available 12/17 12:09:07 Paternal Grandmother Heart disease Not available 12/17 12:09:21 Paternal Grandmother Diabetes mellitus [email or web address] Not available 12/17 12:09:33 Father Hypertensive disorder Not available 12/17 12:09:51 Father Hypercholest erolemia [email or web address] Not available 12/17 12:09:58 Mother Anemia [email or web address] Not available 12/18/2019 12:10:05 Medical History Condition [...] Recorded Time Tdap 08/31/2019 completed Zoraida Noel [place] - [facility] 12/18/2019 11:45:13 Past Encounters Encounter ID Performer Location Encounter Start Date Encounter Closed Date Diagnosis/Indication Diagnosis SNOMED-CT Code Diagnosis ICD10 Code Diagnosis IMO Codes Diagnosis Note [id number] Regina Hernandez CNM [facility] [address] [address] 12/18/2019 11:19:55 12/18/2019 16:44:37 Miscarriage 35164500 O03.9 [id number] MD Kacey Nair [address],[place] [address] 01/07/2020 17:12:00 01/07/2020 19:58:21 Uncertain viability of 314136657 O36.80X9 Z3A.01 [id number] MD Kacey Nair [address],[place] [address] 01/11/2020 11:56:35 01/11/2020 13:04:42 Threatened miscarriage 09468253 O20.0 Z3A.01 [id number] Regina Hernandez [facility] [address],[place] [address] 01/29/2020 14:29:19 01/29/2020 16:08:34 Amenorrhea 87635935 N91.2 [id number] MD Kacey Nair [address],[place] [address] 01/29/2020 14:29:44 01/29/2020 15:49:45 [id number] Stewart Mistry MD [facility] [address],[place] [address] 02/16/2020 16:33:41 02/16/2020 16:55:08 screening 874599857 Z36.82 Z36.0 Z36.89 [id number] MD Kacey Nair [address],[place] [address] 02/16/2020 16:32:31 02/16/2020 18:07:34 screening 817774469 Z36.82 Z36.0 Z36.89 Routine an tenatal care 371877814 Z34.81 [id number] Zeinab Crenshaw [facility] [address],[place] [address] 03/17/2020 14:24:11 03/18/2020 10:50:44 Routine care 255404269 Z34.92 [id number] Stewart Mistry MD [facility] [address],[place] [address] 04/15/2020 13:59:46 04/15/2020 16:27:17 screening for malformation 492967301 Z36.3 [id number] Regina Hernandez [facility] [address],[place] [address] 04/15/2020 14:00:14 04/15/2020 15:29:30 Routine care 329961898 Z34.92 [id number] Rachelle Guzman MD [facility] [address],[place] [address] 05/13/2020 17:01:12 05/13/2020 17:30:57 [id number] Z36.89 Routine an tenatal care 587262694 Z34.02 [id number] Stewart Mistry MD [facility] [address],[place] [address] 06/10/2020 09:24:10 06/10/2020 10:08:06 Routine care 250581513 Z34.81 [id number] Zeinab Crenshaw [facility] [address],[place] [address] 07/04/2020 18:16:54 07/06/2020 17:49:32 Routine care 693548430 Z34.92 [id number] Zeinab Crenshaw [place] [facility] [address],[place] [address] 07/18/2020 17:58:49 07/20/2020 11:54:01 Routine care 194523345 Z34.92 [id number] Zeinab Crenshaw [facility] [address],[place] [address] 08/02/2020 09:37:11 08/02/2020 11:05:54 Routine care 256689692 Z34.92 Additional precaution nahomi measures were taken to minimize potential exposure to the Covid-19 virus during this patient s visit, including available hand terrapin fisher upon arrive, temperatur e check and being asked a series of screening questions. All staff wore face coverings during this encounter, as well as provided additional cleaning and sanitizing of all surfaces, including countertop s, pens, chairs, door handles, light switches, etc, prior to and following the patient s visit. [id number] Stewart Mistry MD [facility] [address],[place] [address] 08/09/2020 17:41:39 08/10/2020 22:03:05 Routine care 820863694 Z34.81 [id number] Regina Hernandez [facility] [address],[place] [address] 08/17/2020 10:25:27 08/17/2020 12:03:57 Routine care 262381779 Z34.92 [id number] Regina Hernandez [facility] [address],[place] [address] 08/24/2020 17:55:16 08/24/2020 18:29:48 Routine care 246157278 Z34.92 [id number] Regina Hernandez [facility] [address],[place] [address] 10/07/2020 14:03:52 10/07/2020 14:50:15 care [id number] Z39.2 [id number] Stewart Mistry MD [facility] [address],[place] [address] 09/23/2024 14:23:08 09/23/2024 15:46:40 Secondary dysmenorrhea 68628964 N94.5 Patient with dysmenorrh ea and irregular bleeding x one cycle. Patient declined pelvic exam or leaving urine sample for UPT today; patient currently on her period.Rec ommended supportive care including NSAID use.Discus sed monitoring periods for the next 2-3 months to see if this pattern of bleeding/s ymptoms continue since this has been the first recent occurrence .Discussed hormonal options to help regulate cycles and relieve dysmenorrh ea, especially with patient's history of endometrio sis.If symptoms continue, labs and pelvic ultrasound may be recommende d.Patient instructed to report symptoms of anorexia, fever, and vomiting.P atient to RTO for f/u and WWE/pap smear in 6-8 weeks. [id number] MD Kacey BANERJEE [address],[place] [address] 02/15/2025 13:47:53 02/15/2025 14:30:58 [id number] MD Kacey BANERJEE [address],[place] [address] 02/15/2025 14:19:25 02/15/2025 15:40:13 Nausea and vomiting 27298239 R11.2 [id number] test positive 148388054 Z32.01 [id number] 1. Exam today within normal limits.2. Ultrasound today confirms GA and viability. EDC . *GC/Clamyd ia testing done: will f/u as indicated. 4. ACOG guidelines and plan of care for reviewed with patient. All questions answered.5 . Return to office at 12 weeks for new OB visit6. Will need new OB labs at next visit.7. Genetic screening: declines [id number] MD Kacey BANERJEE [address],[place] [address] 03/16/2025 09:22:30 03/16/2025 10:19:29 screening [id number] Z36.82 Z3A.12 [id number] MD Kacey BANERJEE [address],[place] [address] 03/16/2025 09:26:22 03/16/2025 11:10:22 screening [id number] Z36.89 Gestation period, 12 weeks [id number] Z3A.12 [id number] Gynecologi c examination [id number] Z01.419 Z11.51 [id number] MD Kacey BANERJEE [address],[place] [address] 03/26/2025 12:55:04 03/26/2025 13:34:31 Threatened miscarriage 00551516 O20.0 Z3A.13 [id number] MD Kacey BANERJEE [address],[place] [address] 04/13/2025 09:29:34 04/13/2025 10:08:49 care status [id number] Z34.82 [id number] Stewart Mistry MD [facility] [address],[place] [address] 05/12/2025 16:24:53 05/13/2025 08:50:53 Screening status 400354458 Z36.3 Z3A.20 [id number] Regina Hernandez [facility] [address],[place] [address] 05/12/2025 16:45:57 05/12/2025 17:55:07 Gestation period, 20 weeks 85227303 Z3A.20 [id number] Regina Hernandez [facility] [address],[place] [address] 06/08/2025 12:40:26 06/08/2025 13:43:15 Gestation period, 24 weeks [id number] Z3A.24 [id number] Health Concerns Section Related Observation LastModified by Organization Detai ls LastModified Time None Recorded Concern Status LastModified by Organization Details LastModified Time None Recorded Advance Directives Directive N: Payers Insurance Date Sequence Insurance Name Policy Number Policy Grijalva Covered Member ID Grijalva Member ID Guarantor Name 03/16/2025 1 *SELF PAY* Al lexandra Mc 09/23/2024 1 [employer] (PPO) [id number] Golden Mc [id number] Allexandra Mc 12/18/2019 1 [employer] (POS) Godlen Mc [id number] Allexandra Mc 07/04/2020 1 [facility] (PPO) Golden Mc [id number] Allexandra Mc 09/23/2024 1 [id number] Mara Mc [id number] Allexandra Mc 09/22/2024 1 [employer] [id number] Golden Cm [id number] Allexandra Mc 06/05/2025 1 FLORIN MCCLOUD (PPO) [id number] 1 Golden Mc [id number] Allexandra Mc Notes Date Note Type Note Provider Name and Address Organization Details Recorded Time 04/13/2025 text/html Generic HPI TemplateReported by Patient JARED MARSHALL MD [address], [place], [address], [facility] 04/13/2025 10:07:54 05/12/2025 text/html Generic HPI TemplateReported by Patient Regina Hernandez CNM [address], [place], [address], [facility] 05/12/2025 17:54:26 06/08/2025 text/html Generic HPI TemplateReported by Patient Regina Hernandez CNM [address], [place], [address], [facility] 06/08/2025 13:36:43 OBGyn Episode Ob Episode Information Episode Created Date Number of Fetuses Patient Bloodtype Patient rh Status Prepregnancy Weight lbs Domestic Partner Domestic Partner Phone Father Name Treasury Assistant Status 12/18/19 20 1 CLOSED Fetus Data First Name Last Name Admitted to NICU Weight (g) Sex Living Outcome Pediatric Complications Fetus ID Race Codes Race Delivery Type , Spontane ous [id number] Zeus Calculation Initial Zeus Date Initial Exam Date Initial Exam Provider Initial Ultrasound Date Last Menstrual Period Date Ultra Sound Weeks Gestation 0 Eighteen To Twenty Week Zeus Update Ultra Sound Date Fundal Height At Umbil Quickening Date Ultra Sound Latest Weeks Gestation Final Zeus Confirmed By Final Zeus Confirmed Date Final Zeus Date Ultra Sound Latest Days Gestation 0 0 Menstrual History Last Menstrual Date Menses Monthly On Bcp Conception Prior Menses Frequency Hcg Plus Date Menarche Onset Age Delivery Information Delivery Date Delivery Type Labor Anesthesia Weeks Gestation Incision Type Labor Labor Length Hrs Delivered By Post Complications Tubal Sterilization Discharge Date Comments 0 10/2019 MISCARRIA GE Discharge Information Feeding Method Contraceptive Method Maternal HG B and HCT Levels Ob Episode Information Episode Created Date Number of Fetuses Patient Bloodtype Patient rh Status Prepregnancy Weight lbs Domestic Partner Domestic Partner Phone Father Name Treasury Assistant Status 02/16/20 20 1 O Positive 135 CLOSED Fetus Data First Name Last Name Admitted to NICU Weight (g) Sex Living Outcome Pediatric Complications Fetus ID Race Codes Race Delivery Type 3543.68 75 F true Full Term [id number] Vaginal Delivery Problems Problem Notes Recent spotting of old blood . 1st trimester. Problem Name Start Date End Date Resolution Snomed Code Not e Moderate asthma [id number] Rare use of inhaler Zeus Calculation Initial Zeus Date Initial Exam Date Initial Exam Provider Initial Ultrasound Date Last Menstrual Period Date Ultra Sound Weeks Gestation 09/01/2020 02/16/2020 01/07/2020 6 Eighteen To Twenty Week Zeus Update Ultra Sound Date Fundal Height At Umbil Quickening Date Ultra Sound Latest Weeks Gestation Final Zeus Confirmed By Final Zeus Confirmed Date Final Zeus Date Ultra Sound Latest Days Gestation 0 [email or web address] 02/16/2020 09/02/19 21 0 Pre-raz Flowsheet Flowsheet Date 02/16/2020 Rhodes Score Blood Edema Fundus Height Fundus Units Glucose Ketones Leukocytes Nitrite Labor Signs Protein Cervic Dilation Cervic Effacement Cervic Station 12 Type Weight in lbs Pre/Post Dialysis Refused Weight 135.24850178047 BP Diastolic BP Location Tested BP Systolic BP Type 69 109 Fetus Heart Rate Present A 155 Fetus Movement Comments this patient is a 25-year-ol d female who presents for initial care. She is uncertain of her last menstrual period date. She did not have a period between her miscarriage and becoming . She has some dark blood spotting. She had a normal nuchal translucency ultrasound today Flowsheet Date 03/17/2020 Rhodes Score Blood Edema Fundus Height Fundus Units Glucose Ketones Leukocytes Nitrite Labor Signs Protein Cervic Dilation Cervic Effacement Cervic Station trace Type Weight in lbs Pre/Post Dialysis Refused Weight 139.008511740556 BP Diastolic BP Location Tested BP Systolic BP Type 72 L arm 112 sitting Fetus Heart Rate Present A 150 Fetus Movement A No Comments Manager Voice patient. Prefers mos t natural approach to and . Will have 2nd seq drawn today. Flowsheet Date 04/15/2020 Rhodes Score Blood Edema Fundus Height Fundus Units Glucose Ketones Leukocytes Nitrite Labor Signs Protein Cervic Dilation Cervic Effacement Cervic Station Type Weight in lbs Pre/Post Dialysis Refused BP Diastolic BP Location Tested BP Systolic BP Type Fetus Heart Rate Present Fetus Movement Comments Flowsheet Date 04/15/2020 Rhodes Score Blood Edema Fundus Height Fundus Units Glucose Ketones Leukocytes Nitrite Labor Signs Protein Cervic Dilation Cervic Effacement Cervic Station neg none trace Type Weight in lbs Pre/Post Dialysis Refused Weight 145.3841866964 BP Diastolic BP Location Tested BP Systolic BP Type 74 120 Fetus Heart Rate Present Fetus Movement A Yes Comments patient states that having s ome back pain Flowsheet Date 05/13/2020 Rhodes Score Blood Edema Fundus Height Fundus Units Glucose Ketones Leukocytes Nitrite Labor Signs Protein Cervic Dilation Cervic Effacement Cervic Station neg none 25 cm trace Type Weight in lbs Pre/Post Dialysis Refused Weight 150.236522265294 BP Diastolic BP Location Tested BP Systolic BP Type 72 113 Fetus Heart Rate Present A 150 Fetus Movement A Yes Comments Doing well! Discussed flu an d Tdap- will get. Rh pos. Labs next visit. Precautions given. Flowsheet Date 06/10/2020 Rhodes Score Blood Edema Fundus Height Fundus Units Glucose Ketones Leukocytes Nitrite Labor Signs Protein Cervic Dilation Cervic Effacement Cervic Station 27 Type Weight in lbs Pre/Post Dialysis Refused Weight 153.736770853414 BP Diastolic BP Location Tested BP Systolic BP Type 69 R arm 110 sitting Fetus Heart Rate Present A 146 Fetus Movement A Yes Comments Flowsheet Date 07/04/2020 Rhodes Score Blood Edema Fundus Height Fundus Units Glucose Ketones Leukocytes Nitrite Labor Signs Protein Cervic Dilation Cervic Effacement Cervic Station 31 Type Weight in lbs Pre/Post Dialysis Refused Weight 158.777607749021 BP Diastolic BP Location Tested BP Systolic BP Type 71 116 Fetus Heart Rate Present A 145 Fetus Movement A Yes Comments Occasional matthew interiano con tractions. Discussed options for acid reflux. Encouraged flu and tdap. Still planning a natural approach to labor and delivery. Encouraged classes at [facility]. Flowsheet Date 07/18/2020 Rhodes Score Blood Edema Fundus Height Fundus Units Glucose Ketones Leukocytes Nitrite Labor Signs Protein Cervic Dilation Cervic Effacement Cervic Station neg none 33 neg Type Weight in lbs Pre/Post Dialysis Refused Weight 157.382106053349 BP Diastolic BP Location Tested BP Systolic BP Type 77 113 Fetus Heart Rate Present A 150 Fetus Movement A Yes Comments Doing well. No contractions. Flu and TDAP done. Flowsheet Date 08/02/2020 Rhodes Score Blood Edema Fundus Height Fundus Units Glucose Ketones Leukocytes Nitrite Labor Signs Protein Cervic Dilation Cervic Effacement Cervic Station 35 Type Weight in lbs Pre/Post Dialysis Refused Weight 158.008643048246 BP Diastolic BP Location Tested BP Systolic BP Type 72 107 Fetus Heart Rate Present A 151 Fetus Movement A Yes Comments Doing well. Labor precaution s. Declined exam. GBS collected. Flowsheet Date 08/09/2020 Rhodes Score Blood Edema Fundus Height Fundus Units Glucose Ketones Leukocytes Nitrite Labor Signs Protein Cervic Dilation Cervic Effacement Cervic Station neg none 37 trace Type Weight in lbs Pre/Post Dialysis Refused Weight 164.09849942692 BP Diastolic BP Location Tested BP Systolic BP Type 72 122 Fetus Heart Rate Present A 145 Fetus Movement A Yes Comments Flowsheet Date 08/17/2020 Rhodes Score Blood Edema Fundus Height Fundus Units Glucose Ketones Leukocytes Nitrite Labor Signs Protein Cervic Dilation Cervic Effacement Cervic Station neg none 34 trace Type Weight in lbs Pre/Post Dialysis Refused Weight 162.575843786533 BP Diastolic BP Location Tested BP Systolic BP Type 74 113 Fetus Heart Rate Present A 145 Fetus Movement A Yes Comments patient states that is havin g contractions, vaginitis for ? yeast, only sxs is pressure, declined cervical exam Flowsheet Date 08/24/2020 Rhodes Score Blood Edema Fundus Height Fundus Units Glucose Ketones Leukocytes Nitrite Labor Signs Protein Cervic Dilation Cervic Effacement Cervic Station neg none 38 trace Type Weight in lbs Pre/Post Dialysis Refused Weight 162.638997319256 BP Diastolic BP Location Tested BP Systolic BP Type 66 122 Fetus Heart Rate Present A 151 Fetus Movement A Yes Comments patient states that having p ain and contractions, precautions reviewed Menstrual History Last Menstrual Date Menses Monthly On Bcp Conception Prior Menses Frequency Hcg Plus Date Menarche Onset Age Genetic Screening And Infection History Question Response Note Mental Retardation/Autism false Patient's Age Will Be 35 Years Or Older At Estim ated Date of Delivery false Thalassemia (Lithuanian, Syrian, Mediterranean, Or Background): MCV < 80 false Neural Tube Defect (Meningomyelocele, Spina Bifi da, Or Anencephaly) false Congenital Heart Defect false Down Syndrome false Stephan-Sachs (eg, Mormonism, Cajun, Yakut-Moselle) f alse Ruddy Disease false Sickle Cell Disease Or Trait () false Hemophilia Or Other Blood Disorders false Muscular Dystrophy false Cystic Fibrosis false Shane's Chorea false Intellectual Disability/Autism false If Yes, Was Person Tested For Fragile X? false Other Inherited Genetic Or Chromosomal Disorder false Maternal Metabolic Disorder (eg, Type 1 Diabetes , PKU) false Patient Or Baby's Father Had A Child With Defects Not Listed Above false Recurrent Loss, Or A Stillbirth false Medications (including Suppl ements, Vitamins, Herbs, OTC Drugs), Illicit/Recreational Drugs, Alcohol false If Yes, Agent(s) And Strength/Dosage false Any Other Genetic History false Live With Someone With TB Or Exposed To TB false Patient Or Partner Has History Of Genital Herpes false Rash Or Viral Illness Since Last Menstrual Perio d false History Of STD, Gonorrhea, Chlamydia, HPV, Syphi lis false Other Infection History false History of HIV false History of Hepatitis false Prior GBS-infected child false Hemoglobinopathy Or Carrier false Other Structural Defect false Recent Travel History Outside of Country false Delivery Information Delivery Date Delivery Type Labor Anesthesia Weeks Gestation Incision Type Labor Labor Length Hrs Delivered By Post Complications Tubal Sterilization Discharge Date Comments 1 Sponta neous Local 39.5 false Regina Hernandez CN Discharge Information Feeding Method Contraceptive Method Maternal HG B and HCT Levels Breast Ob Episode Information Episode Created Date Number of Fetuses Patient Bloodtype Patient rh Status Prepregnancy Weight lbs Domestic Partner Domestic Partner Phone Father Name Treasury Assistant Status 03/16/20 25 1 O Positive Golden OPEN Fetus Data First Name Last Name Admitted to NICU Weight (g) Sex Living Outcome Pediatric Complications Fetus ID Race Codes Race Delivery Type [id number] Zeus Calculation Initial Zeus Date Initial Exam [...] Weight in lbs Pre/Post Dialysis Refused Weight 143.507618048970 BP Diastolic BP Location Tested BP Systolic BP Type 74 L arm 108 sitting Fetus Heart Rate Present A 162 Fetus Movement A No Comments Patient [facility]. Hx of 1 full term . [...] Type Weight in lbs Pre/Post Dialysis Refused 145.9116693971 BP Diastolic BP Location Tested BP Systolic [...] Type Weight in lbs Pre/Post Dialysis Refused 150.800155923396 BP Diastolic BP Location Tested BP Systolic BP Type 72 L arm 114 sitting Fetus Heart Rate Present Fetus Movement A Yes Comments Flowsheet Date 06/08/2025 Rhodes Score Blood Edema Fundus Height Fundus Units Glucose Ketones Leukocytes Nitrite Labor Signs Protein Cervic Dilation Cervic Effacement Cervic Station 20 cm Type Weight in lbs Pre/Post Dialysis Refused 156.535541145867 BP Diastolic BP Location Tested BP Systolic [...]
--- OUTSIDE RECORDS SUMMARY | 2025-06-13 15:45 | XMS_ITS | Continuity of Care Document ---
Author Organization [facility] Address [address] [place] [address] Assessment Encounter Date Assessment Date Assessment LastModified by Organization Details LastModified Time 05/12/2025 05/12/2025 Patient is ___weeks . Discussed plan. Not available 05/12/2025 17:40:24 Plan of Treatment Reminders Order Date Submit [...] [facility] [address], [place], [address], 03/26/2025 02:58:30 03/26/2003/26/2025 [UNIT Y] ANEUP LOIDY NIPT 22Q11.2 microdeletio n LOW RISK <1 in 10,000 normal Not Available [facility] [address], [place], [address], 03/26/2025 02:58:30 03/26/20 25 03/26/2025 [UNIT Y] ANEUP LOIDY NIPT sex chromosome aneuploidy NOT DETECT ED normal Not Available [facility] [address], [place], [address], 03/26/2025 02:58:30 03/26/20 25 03/26/2025 [UNIT Y] ANEUP LOIDY NIPT monosomy X LOW RISK <1 in 10,000 normal Not Available [facility] [address], [place], [address], 03/26/2025 02:58:30 03/26/20 25 03/26/2025 [UNIT Y] ANEUP LOIDY NIPT trisomy 13 LOW RISK <1 in 10,000 normal Not Available [facility] [address], [place], [address], 03/26/2025 02:58:30 03/26/20 25 03/26/2025 [UNIT Y] ANEUP LOIDY NIPT trisomy 18 LOW RISK <1 in 10,000 normal Not Available [facility] [address], [place], [address], 03/26/2025 02:58:30 03/26/20 25 03/26/2025 [UNIT Y] ANEUP LOIDY NIPT trisomy 21 LOW RISK <1 in 10,000 normal Not Available [facility] [address], [place], [address], 03/26/2025 02:58:30 03/26/20 25 03/26/2025 [UNIT Y] ANEUP LOIDY NIPT sex MALE normal Not Available [facility] [address], [place], [address], 03/26/2025 02:58:30 03/26/20 25 03/26/2025 [UNIT Y] ANEUP LOIDY NIPT gestation SINGLE TON normal Not Available [facility] [address], [place], [address], 03/26/2025 02:58:30 03/26/2003/26/2025 [UNIT Y] DAWOOD TATUM NIPT for detailed report, see pdf See PDF normal Not Available [facility] [address], [place], [address], 03/26/2025 02:58:30 03/16/2003/16/2025 HEPAT ITIS B SURFA CE ANTIG EN hepatitis B surface antigen Non-re active non-re active This assay was perfo rmed using [employer] ratio n reage nts and test kits. Value s obtai magali with other assay metho ds or kits canno t be used inter lane eably . Not Available [facility] (Lab) [address], [place], [address], 03/18/2025 00:59:55 03/16/2003/16/2025 CBC W/DIF F WBC 6.9 10'3/ uL 3.5-10 .5 Not Available [facility] (Lab) [address] [place], [address], 03/18/2025 00:59:55 03/16/2003/16/2025 CBC W/DIF F RBC 4.18 10'6/ uL (based on docume nted legal sex) 3.80-5 .20 Not Available [facility] (Lab) [address] [place], [address], 03/18/2025 00:59:55 03/16/2003/16/2025 CBC W/DIF F HGB 12.8 g/dL (based on docume nted legal sex) 11.6-1 5.4 Not Available [facility] (Lab) [address] [place], [address], 03/18/2025 00:59:55 03/16/2003/16/2025 CBC W/DIF F HCT 39.1 % (based on docume nted legal sex) 34.0-4 5.0 Not Available [facility] (Lab) [address], [place], [address], 03/18/2025 00:59:55 03/16/2003/16/2025 CBC W/DIF F MCV 93.5 fL 80.0-9 9.0 Not Available [facility] (Lab) [address], [place], [address], 03/18/2025 00:59:55 03/16/2003/16/2025 CBC W/DIF F MCH 30.6 pg 27.0-3 4.0 Not Available [facility] (Lab) [address], [place], [address], 03/18/2025 00:59:55 03/16/2003/16/2025 CBC W/DIF F MCHC 32.7 g/dL 32.0-3 5.5 Not Available [facility] (Lab) [address], [place], [address], 03/18/2025 00:59:55 03/16/2003/16/2025 CBC W/DIF F RDW 13.5 % 11.0-1 5.0 Not Available [facility] (Lab) [address], [place], [address], 03/18/2025 00:59:55 03/16/2003/16/2025 CBC W/DIF F plt 205 10'3/ uL 150-40 0 Not Available [facility] (Lab) [address], [place], [address], 03/18/2025 00:59:55 03/16/2003/16/2025 CBC W/DIF F MPV 10.5 fL 8.8-12 .1 Not Available [facility] (Lab) [address] [place], [address], 03/18/2025 00:59:55 03/16/2003/16/2025 CBC W/DIF F NRBC's 0.0 % 0.0 Not Available [facility] (Lab) [address], [place], [address], 03/18/2025 00:59:55 03/16/2003/16/2025 CBC W/DIF F absolute NRBCs 0.0 10'3/ uL no refere nce range establ ished Not Available [facility] (Lab) [address], [place], [address], 03/18/2025 00:59:55 03/16/2003/16/2025 CBC W/DIF F neutrophils 68.9 % 34.0-7 3.0 Not Available [facility] (Lab) [address], [place], [address], 03/18/2025 00:59:55 03/16/20 25 03/16/2025 CBC W/DIF F lymphocytes 21.7 % 15.0-5 0.0 Not Available [facility] (Lab) [address], [place], [address], 03/18/2025 00:59:55 03/16/20 25 03/16/2025 CBC W/DIF F monocytes 8.5 % 1.0-15 .0 Not Available [facility] (Lab) [address], [place], [address], 03/18/2025 00:59:55 03/16/2003/16/2025 CBC W/DIF F eosinophils 0.3 % 0.0-8. 0 Not Available [facility] (Lab) [address] [place], [address], 03/18/2025 00:59:55 03/16/2003/16/2025 CBC W/DIF F basophils 0.3 % 0.0-2. 0 Not Available [facility] (Lab) [address], [place], [address], 03/18/2025 00:59:55 03/16/2003/16/2025 CBC W/DIF F immature granulocytes 0.3 % no define d refere nce range Immat ure Granu locyt es (IG) repre sents autom ated enume ratio n of Metam yeloc ytes, Myelo cytes and Promy elocy tyree when IG is < 5%. Blast s are not inclu ded in IG and repor ten separ ately if prese nt. Not Available [facility] (Lab) [address], [place], [address], 03/18/2025 00:59:55 03/16/2003/16/2025 CBC W/DIF F absolute neutrophils 4.8 10'3/ uL 1.5-8. 0 Not Available [facility] (Lab) [address], [place], [address], 03/18/2025 00:59:55 03/16/2003/16/2025 CBC W/DIF F absolute lymphocytes 1.5 10'3/ uL 1.0-4. 0 Not Available [facility] (Lab) [address], [place], [address], 03/18/2025 00:59:55 03/16/2003/16/2025 CBC W/DIF F absolute monocytes 0.6 10'3/ uL 0.2-1. 0 Not Available [facility] (Lab) [address], [place], [address], 03/18/2025 00:59:55 03/16/2003/16/2025 CBC W/DIF F absolute eosinophils 0.0 10'3/ uL 0.0-0. 6 Not Available [facility] (Lab) [address], [place], [address], 03/18/2025 00:59:55 03/16/2003/16/2025 CBC W/DIF F absolute basophils 0.0 10'3/ uL 0.0-0. 3 Not Available [facility] (Lab) [address], [place], [address], 03/18/2025 00:59:55 03/16/2003/16/2025 CBC W/DIF F absolute immature granulocytes 0.0 10'3/ uL 0.00-0 .10 Refer ence range s for nonbi nary/ inter sex or unspe cifie d gende r patie nts have not been estab lishe d. Pleas e [facility] table for range s estab lishe d for cisge nder patie nts and evalu ate in the clini hossein nicolasa xt of the indiv idual patie nt: https ://la bhand book. nm.or g/gen derx Not Available [facility] (Lab) [address], [place], [address], 03/18/2025 00:59:55 03/16/2003/16/2025 HIV 1/2 ANTIG EN/AN TIBOD Y, REFLE X CONFI RMATI ON HIV antigen/anti body Nonrea ctive nonrea ctive HIV-1 antig en and HIV-1 /HIV- 2 antib odies were not detec ten. No labor atory evide nce of HIV infec tion. Not Available [facility] (Lab) [address], [place], [address], 03/18/2025 00:59:55 03/16/2003/16/2025 HEPAT ITIS C ANTIB RICCO SCREE N, REFLE X TO CONFI RMATI ON hepatitis C antibody Non-re active non-re active Antib odies to HCV Not Detec ten, does not exclu de the possi bilit y of expos ure to HCV. Not Available [facility] (Lab) [address] [place], [address], 03/18/2025 00:59:56 03/16/2003/16/2025 RUBEL LA IGG ANTIB RICCO, QUANT rubella antibodies, IgG Reacti ve reacti ve Not Available [facility] (Lab) [address], [place], [address], 03/18/2025 00:59:56 03/16/2003/16/2025 RUBEL LA IGG ANTIB RICCO, QUANT rubella antibodies, IgG quant 18.6 IU/mL >=10 Non-r eacti ve (Non- Immun e) <10 IU/mL React shaina (Immu ne) > or = 10 IU/mL Not Available [facility] (Lab) [address], [place], [address], 03/18/2025 00:59:56 03/16/2003/16/2025 TYPE/ RH/SC REEN ABO/Rh type O POS Not Available [facility] (Lab) [address], [place], [address], 03/18/2025 00:59:56 03/16/2003/16/2025 TYPE/ RH/SC REEN antibody screen NEG Not Available [facility] (Lab) [address], [place], [address], 03/18/2025 00:59:56 03/16/2003/16/2025 TYPE/ RH/SC REEN exp date 2024 23:59 Not Available [facility] (Lab) [address], [place], [address], 03/18/2025 00:59:56 03/16/2003/16/2025 HEMOG LOBIN A1C hemoglobin [...] >8.0% Actio n sugge sted Not Available [facility] (Lab) [address], [place], [address], 03/18/2025 00:59:56 03/16/20 25 03/16/2025 RPR SCREE N, REFLE X TITER /CONF IRMAT ION RPR qualitative Nonrea ctive nonrea ctive Not Available [facility] (Lab) [address], [place], [address], 03/18/2025 00:59:57 03/16/20 25 03/16/2025 LEAD, BLOOD (ADUL T/PED IATRI C) lead, whole blood <1.0 mcg/d L <3.5 See Note 1 Marisabel sis was perfo rmed by Valerie Estevez ed Plasm a Mass Spect romet ry (ICPM S) Note 1 This test was devel oped and its marisabel tical perfo rmanc e russell cteri stics have been deter mined by [employer]. It has not been clear ed or appro corey by the FDA. This assay has been valid ated pursu ant to the CLIA regul ation s and is used for clini hossein purpo ses. Perfo rming Organ izati on Infor matio n: Site ID: CB Name: [employer]-Cristopher Justin Addre ss: [id number] [place] [address] Direc tor: Anna Su s Not Available [facility] (Lab) [address], [place], [address], 03/18/2025 00:59:57 03/16/2003/16/2025 CULTU RE: URINE result report SEE RESULT S BELOW Test: Cultu re: Urine Speci men Sourc e: Urine - Clean Catch Speci men Type: Urine Speci men Date: 2024 1004 Resul t Date: 2024 2155 Resul t Statu s: Final resul t Abnor mal: No Resul ting Lab: [facility] [address] [address] Tel: CULTU RE ----- ----- ----- --- No growt h in 1 day (dete ction level of 10,00 0 colon ies / ml.) Not Available [facility] (Lab) [address] , [place], [address], 03/18/2025 15:41:18 03/16/20 25 03/16/2025 IMAGE GUIDE [...] corey: 03/17 0137 First Salena n: Eliot Bernstein, CT Speci men: Salena self Pap - Image d, Cervi x STATE MENT OF ADEQU ACY: Satis facto ry for evalu ation Trans forma tion zone compo nent absen t ----- ----- ----- ----- ----- ----- ----- ----- ----- ----- ----- ----- ----- ----- ----- ----- ----- ---- FINAL DIAGN OSIS: Negat shaina for Intra epith elial Melissa black or Josias aguilar ([facility]) . Elect galileo jo d by Eliot [...] as clini luli espinosa nted. Not Available [facility] (Lab) [address], [place], [address], 03/18/2025 15:41:19 03/16/20 25 03/16/2025 US, obste tric, nucha l trans lucen cy No observ ation record ed. MACEY Orellana [address], [place], [address], 03/17/2025 14:15:04 03/16/20 25 03/16/2025 US, obste tric, nucha l trans lucen cy No observ ation record ed. [email or web address] [place] [address], [place], [address], 03/16/2025 11:19:07 03/26/20 25 03/26/2025 US, obste tric, limit ed No observ ation record ed. [email or web address] [place] [address] [address], [place], [address], 04/09/2025 10:52:09 03/26/20 25 03/26/2025 US, obste tric, limit ed No observ ation record ed. [email or web address] [place] [address], [place], [address], 03/26/2025 14:02:40 05/12/20 25 05/12/2025 US, obste tric, 2nd or 3rd trime ster No observ ation record ed. [facility] [address], [place], [address], 05/12/2025 18:19:45 05/12/20 25 05/12/2025 US, obste tric, follo w-up No observ ation record ed. MACEY Reyna [address], [place], [address], 05/14/2025 11:08:32 Result Notes None recorded. Problems Name Problem SNOMED Code Status Onset Date Resolution Date Notes Provider Name and Address Organization Details Recorded Time Moderate asthma 074819373 Completed Rare use of inhaler Ashley hood [facility] 15:16:58 66352488 Completed 201909/13/2020 Christina hood [facility] 5 10:10:56 33909743 Active 2024 Christina Gale [facility] 5 10:10:55 Problem Notes None recorded. Procedures Surgical History Date Name Laterality Status Provider Name and Address Organization Details Recorded Time 03/16/20 25 Date of Last Pap Smear completed Christinaclaire Gilmanroberta [facility] 04/13/2025 09:43:20 07/01/19 02 [...] Not available Not available Not available 12/18/2019 [id number] SNOMED Zoraida Noel [facility] 0 12:11:48 Medications Name Sig Start [...] Address Organization Details Last Updated DateTime 05/12/2025 38160.8555 g 114/72 mm[Hg] Leesa Gregg [facility] 05/12/2025 17:41:39 Social History Question Answer Notes LastModified by Organizat ion Details LastModified Time Tobacco Smoking Status Never Smoker Zoraida hood, [facility] 10/07/2020 14:13:21 Do You Have An Advance Directive? No [email or web address] Information n ot available 10/07/2020 If You Are , What Was Your Level Of Alcohol Consumption Prior To ? Occasional [email or web address] Information not available 10/07/2020 Are You Blind Or Do You Have Difficulty Seeing? No [email or web address] Information n ot available 08/24/2020 What Is Your Level Of Caffeine Consumption? Occasional [email or web address] Information not available 10/07/2020 In The 14 Days Before Symptom Onset, Have You Had Close Contact With A Laboratory-confirm ed COVID-19 While That Case Was Ill? No [email or web address] Information n ot available 08/24/2020 In The 14 Days Before Symptom Onset, Have You Had Close Contact With A Person Who Is Under Investigation For COVID-19 While That Person Was Ill? No Information not available 08/24/2020 Have You Been To An Area Known To Be High Risk For COVID-19? No [email or web address] Information not available 08/24/2020 Are You Deaf Or Do You Have Serious Difficulty Hearing? No [email or web address] Information not available 08/24/2020 What Type Of Diet Are You Following? REGULAR [email or web address] Information n ot available 08/24/2020 What Is The Highest Grade Or Level Of School You Have Completed Or The Highest Degree You Have Received? GS01723-5 Information not available 10/07/2020 Are There Any Guns Present In Your Home? Yes [email or web address] Information not available 10/07/2020 What Was The Date Of Your Most Recent Tobacco Screening? 10/07/2020 [email or web address] Information not available 10/07/2020 Have You Ever Been Counseled For Unhealthy Alcohol Use? No [email or web address] Information not available 10/07/2020 Do You Use Protection During Sex? Usually [email or web address] Information not available 10/07/2020 Do You Use Your Seat Belt Or Car Seat Routinely? Yes [email or web address] Information not available 08/24/2020 Do You Have Smoke And Carbon Monoxide Detectors In Your Home? Yes [email or web address] Information not available 08/24/2020 How Much Tobacco Do You Smoke? No [email or web address] Information not available 12/18/2019 Do You Use Sunscreen Routinely? No Information not available 02/15/2025 Has Tobacco Cessation Counseling Been Provided? No [email or web address] Information not available 10/07/2020 Have You Used IV Drugs? No [email or web address] Information not available 10/07/2020 Sex: Unknown Functional Status Question Answer Note LastModified by Organizat ion Details LastModified Time Do you use any illicit or recreational drugs? Yes Information not available 02/15/2025 Do you or have you ever used any other forms of tobacco or nicotine? No Information not available 10/07/2020 What is your level of alcohol consumption? Occasional Information not available 12/18/2019 Do you or have you ever used smokeless tobacco? Never used smokeless tobacco [email or web address] Information not available 10/07/2020 Are you able to walk independently without assistance or assistive devices? 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 Never used electronic cigarettes [email or web address] Information not available 10/07/2020 What is your exercise level? Moderate [email or web address] Information not available 10/07/2020 Mental Status Question Answer Note LastModified by Organization D etails LastModified Time Do you feel stressed (tense, restless, nervous, or anxious, or unable to sleep at night)? [id number] [email or web address] Information not available 08/24/2020 Family History Relationship Description Onset Age of this Age Resolved Age Notes LastModified by Organization Details LastModified Time Paternal Aunt Malignant neoplasm of breast [email or web address] Not available 12/17 12:09:07 Paternal Grandmother Heart disease [email or web address] Not available 12/17 12:09:21 Paternal Grandmother Diabetes mellitus [email or web address] Not available 12/17 12:09:33 Father Hypertensive disorder Not available 12/17 12:09:51 Father Hypercholest erolemia Not available 12/17 12:09:58 Mother Anemia [email or web address] Not available 12/18/2019 12:10:05 Medical History Condition [...] Recorded Time Tdap 08/31/2019 completed Zoraida hood [facility] 12/18/2019 11:45:13 Past Encounters Encounter ID Performer Location Encounter Start Date Encounter Closed Date Diagnosis/Indication Diagnosis SNOMED-CT Code Diagnosis ICD10 Code Diagnosis IMO Codes Diagnosis Note [id number] JARED MARSHALL MD [place] [address],[place] [place] [address] 04/13/2025 09:29:34 04/13/2025 10:08:49 care status 520779281 Z34.82 [id number] Stewart Mistry MD [place] [address],[place] [place] [address] 05/12/2025 16:24:53 05/13/2025 08:50:53 Screening status 358232244 Z36.3 Z3A.20 [id number] Regina Hernandez CNM [place] [address],[place] [address] 05/12/2025 16:45:57 05/12/2025 17:55:07 Gestation period, 20 weeks 19817177 Z3A.20 [id number] Health Concerns Section Related Observation LastModified by Organization Detai ls LastModified Time None Recorded Concern Status LastModified by Organization Details LastModified Time None Recorded Payers Encounter Date Sequence Insurance Name Policy Number Policy Grijalva Covered Member ID Grijalva Member ID Guarantor Name 05/12/2025 1 FLORIN MCCLOUD (PPO) [id number] 1 Golden Bentley [id number] Rhina Bentley Notes Date Note Type Note Provider Name and Address Organization Details Recorded Time 05/12/2025 text/html Generic HPI TemplateReported by Patient Regina Hernandez CNM [address], [place], [address], [facility] 05/12/2025 17:54:26 OBGyn Episode Ob Episode Information Episode Created Date Number of Fetuses Patient Bloodtype Patient rh Status Prepregnancy Weight lbs Domestic Partner Domestic Partner Phone Father Name [employer] Developer Status 03/16/20 25 1 O Positive Golden OPEN Fetus Data First Name Last Name Admitted to NICU Weight (g) Sex Living Outcome Pediatric Complications Fetus ID Race Codes Race Delivery Type [id number] Zeus Calculation Initial Zeus Date Initial Exam [...] Weight in lbs Pre/Post Dialysis Refused Weight 143.243970355496 BP Diastolic BP Location Tested BP Systolic BP Type 74 L arm 108 sitting Fetus Heart Rate Present A 162 Fetus Movement A No Comments Patient presents to [facility] care. Hx of 1 full term [...] Type Weight in lbs Pre/Post Dialysis Refused 145.0662162062 BP Diastolic BP Location Tested BP Systolic [...] Type Weight in lbs Pre/Post Dialysis Refused 150.845283522279 BP Diastolic BP Location Tested BP Systolic BP Type 72 L arm 114 sitting Fetus Heart Rate Present Fetus Movement A Yes Comments Flowsheet Date 06/08/2025 Rhodes Score Blood Edema Fundus Height Fundus Units Glucose Ketones Leukocytes Nitrite Labor Signs Protein Cervic Dilation Cervic Effacement Cervic Station 20 cm Type Weight in lbs Pre/Post Dialysis Refused 156.157903623794 BP Diastolic BP Location Tested BP Systolic [...]
--- OUTSIDE RECORDS SUMMARY | 2025-06-13 15:45 | XMS_ITS | Continuity of Care Document ---
Author Organization [facility] Address [address] [place] [place] [address] Assessment No assessment recorded. Plan of Treatment [...] or 3rd trimest er 2024 025 [email or web address] [place], [facility] [address], [address], [place], [address], 05/13/2025 17:14:12 Medication Orders None recorde d. Patient TargetsNo targets recorded. Patient InstructionsNo instructions recorded. Reason for Referral None Reported. Results Created Date Observation Date Name Description Value Unit Range Abnormal Flag Note LastModifiedBy Organization Detail LastModifiedTime 03/26/2003/26/2025 [UNIT Y] ANEUP LOIDY NIPT fraction 11.1% normal Not Available [address], [place], [address], 03/26/2025 02:58:30 03/26/2003/26/2025 [UNIT Y] ANEUP LOIDY NIPT 22Q11.2 microdeletio n LOW RISK <1 in 10,000 normal Not Available [address], [place], [address], 03/26/2025 02:58:30 03/26/20 25 03/26/2025 [UNIT Y] ANEUP LOIDY NIPT sex chromosome aneuploidy NOT DETECT ED normal Not Available [facility] [address], [place], [address], 03/26/2025 02:58:30 03/26/20 25 03/26/2025 [UNIT Y] ANEUP LOIDY NIPT monosomy X LOW RISK <1 in 10,000 normal Not Available [facility] [address], [place], [address], 03/26/2025 02:58:30 03/26/20 25 03/26/2025 [UNIT Y] ANEUP LOIDY NIPT trisomy 13 LOW RISK <1 in 10,000 normal Not Available [facility] [address], [place], [address], 03/26/2025 02:58:30 03/26/20 25 03/26/2025 [UNIT Y] ANEUP LOIDY NIPT trisomy 18 LOW RISK <1 in 10,000 normal Not Available [facility] [address], [place], [address], 03/26/2025 02:58:30 03/26/20 25 03/26/2025 [UNIT Y] ANEUP LOIDY NIPT trisomy 21 LOW RISK <1 in 10,000 normal Not Available [facility] [address], [place], [address], 03/26/2025 02:58:30 03/26/20 25 03/26/2025 [UNIT Y] ANEUP LOIDY NIPT sex MALE normal Not Available [facility] [address], [place], [address], 03/26/2025 02:58:30 03/26/20 25 03/26/2025 [UNIT Y] ANEUP LOIDY NIPT gestation SINGLE TON normal Not Available [facility] [address], [place], [address], 03/26/2025 02:58:30 03/26/2003/26/2025 [UNIT Y] ANEUP LOIDY NIPT for detailed report, see pdf See PDF normal Not Available [facility] [address], [place], [address], 03/26/2025 02:58:30 03/16/2003/16/2025 HEPAT ITIS B SURFA CE ANTIG EN hepatitis B surface antigen Non-re active non-re active This assay was perfo rmed using [employer] ratio n reage nts and test kits. Value s obtai magali with other assay metho ds or kits canno t be used inter lane eably . Not Available [facility] (Lab) [address] , [place], [address], 03/18/2025 00:59:55 03/16/2003/16/2025 CBC W/DIF F WBC 6.9 10'3/ uL 3.5-10 .5 Not Available [facility] (Lab) [address] , [place], [address], 03/18/2025 00:59:55 03/16/2003/16/2025 CBC W/DIF F RBC 4.18 10'6/ uL (based on docume nted legal sex) 3.80-5 .20 Not Available [facility] (Lab) [address], [place], [address], 03/18/2025 00:59:55 03/16/2003/16/2025 CBC W/DIF F HGB 12.8 g/dL (based on docume nted legal sex) 11.6-1 5.4 Not Available [facility] (Lab) [address] , [place], [address], 03/18/2025 00:59:55 03/16/2003/16/2025 CBC W/DIF F HCT 39.1 % (based on docume nted legal sex) 34.0-4 5.0 Not Available [facility] (Lab) [address], [place], [address], 03/18/2025 00:59:55 03/16/2003/16/2025 CBC W/DIF F MCV 93.5 fL 80.0-9 9.0 Not Available [facility] (Lab) [address], [place], [address], 03/18/2025 00:59:55 03/16/2003/16/2025 CBC W/DIF F MCH 30.6 pg 27.0-3 4.0 Not Available [facility] (Lab) [address], [place], [address], 03/18/2025 00:59:55 03/16/20 25 03/16/2025 CBC W/DIF F MCHC 32.7 g/dL 32.0-3 5.5 Not Available [facility] (Lab) [address], [place], [address], 03/18/2025 00:59:55 03/16/2003/16/2025 CBC W/DIF F RDW 13.5 % 11.0-1 5.0 Not Available [facility] (Lab) [address], [place], [address], 03/18/2025 00:59:55 03/16/2003/16/2025 CBC W/DIF F plt 205 10'3/ uL 150-40 0 Not Available [facility] (Lab) [address] [place], [address], 03/18/2025 00:59:55 03/16/20 25 03/16/2025 CBC W/DIF F MPV 10.5 fL 8.8-12 .1 Not Available [facility] (Lab) [address], [place], [address], 03/18/2025 00:59:55 03/16/20 25 03/16/2025 CBC W/DIF F NRBC's 0.0 % 0.0 Not Available [facility] (Lab) [address], [place], [address], 03/18/2025 00:59:55 03/16/2003/16/2025 CBC W/DIF F absolute NRBCs 0.0 10'3/ uL no refere nce range establ ished Not Available [facility] (Lab) [address], [place], [address], 03/18/2025 00:59:55 03/16/2003/16/2025 CBC W/DIF F neutrophils 68.9 % 34.0-7 3.0 Not Available [facility] (Lab) [address], [place], [address], 03/18/2025 00:59:55 03/16/20 25 03/16/2025 CBC W/DIF F lymphocytes 21.7 % 15.0-5 0.0 Not Available [facility] (Lab) [address], [place], [address], 03/18/2025 00:59:55 03/16/2003/16/2025 CBC W/DIF F monocytes 8.5 % 1.0-15 .0 Not Available [facility] (Lab) [address], [place], [address], 03/18/2025 00:59:55 03/16/2003/16/2025 CBC W/DIF F eosinophils 0.3 % 0.0-8. 0 Not Available [facility] (Lab) [address] [place], [address], 03/18/2025 00:59:55 03/16/20 25 03/16/2025 CBC W/DIF F basophils 0.3 % 0.0-2. 0 Not Available [facility] (Lab) [address], [place], [address], 03/18/2025 00:59:55 03/16/2003/16/2025 CBC W/DIF F immature granulocytes 0.3 % no define d refere nce range Immat ure Granu locyt es (IG) repre sents autom ated enume ratio n of Metam yeloc ytes, Myelo cytes and Promy elocy tyree when IG is < 5%. Blast s are not inclu ded in IG and repor ten separ ately if prese nt. Not Available [facility] (Lab) [address], [place], [address], 03/18/2025 00:59:55 03/16/2003/16/2025 CBC W/DIF F absolute neutrophils 4.8 10'3/ uL 1.5-8. 0 Not Available [facility] (Lab) [address], [place], [address], 03/18/2025 00:59:55 03/16/2003/16/2025 CBC W/DIF F absolute lymphocytes 1.5 10'3/ uL 1.0-4. 0 Not Available [facility] (Lab) [address], [place], [address], 03/18/2025 00:59:55 03/16/2003/16/2025 CBC W/DIF F absolute monocytes 0.6 10'3/ uL 0.2-1. 0 Not Available [facility] (Lab) [address], [place], [address], 03/18/2025 00:59:55 03/16/2003/16/2025 CBC W/DIF F absolute eosinophils 0.0 10'3/ uL 0.0-0. 6 Not Available [facility] (Lab) [address], [place], [address], 03/18/2025 00:59:55 03/16/2003/16/2025 CBC W/DIF F absolute basophils 0.0 10'3/ uL 0.0-0. 3 Not Available [facility] (Lab) [address], [place], [address], 03/18/2025 00:59:55 03/16/2003/16/2025 CBC W/DIF F absolute [...] zuluaga book. nm.or g/gen derx Not Available [facility] (Lab) [address], [place], [address], 03/18/2025 00:59:55 03/16/2003/16/2025 HIV 1/2 ANTIG EN/AN TIBOD Y, REFLE X CONFI RMATI ON HIV antigen/anti body Nonrea ctive nonrea ctive HIV-1 antig en and HIV-1 /HIV- 2 antib odies were not detec ten. No labor atory evide nce of HIV infec tion. Not Available [facility] (Lab) [address], [place], [address], 03/18/2025 00:59:55 03/16/2003/16/2025 HEPAT ITIS C ANTIB RICCO SCREE N, REFLE X TO CONFI RMATI ON hepatitis C antibody Non-re active non-re active Antib odies to HCV Not Detec ten, does not exclu de the possi bilit y of expos ure to HCV. Not Available [facility] (Lab) [address], [place], [address], 03/18/2025 00:59:56 03/16/2003/16/2025 RUBEL LA IGG ANTIB RICCO, QUANT rubella antibodies, IgG Reacti ve reacti ve Not Available [facility] (Lab) [address], [place], [address], 03/18/2025 00:59:56 03/16/20 25 03/16/2025 RUBEL LA IGG ANTIB RICCO, QUANT rubella antibodies, IgG quant 18.6 IU/mL >=10 Non-r eacti ve (Non- Immun e) <10 IU/mL React shaina (Immu ne) > or = 10 IU/mL Not Available [facility] (Lab) [address], [place], [address], 03/18/2025 00:59:56 03/16/20 25 03/16/2025 TYPE/ RH/SC REEN ABO/Rh type O POS Not Available [facility] (Lab) [address], [place], [address], 03/18/2025 00:59:56 03/16/20 25 03/16/2025 TYPE/ RH/SC REEN antibody screen NEG Not Available [facility] (Lab) [address], [place], [address], 03/18/2025 00:59:56 03/16/20 25 03/16/2025 TYPE/ RH/SC REEN exp date 2024 23:59 Not Available [facility] (Lab) [address] [place], [address], 03/18/2025 00:59:56 03/16/2003/16/2025 HEMOG LOBIN A1C hemoglobin A1C 5.3 % 4.0-5. 6 The Ameri can Diabe tyree Assoc iatio n recom mends that a prima ry goal of thera py robbyul d be a HBA1C of < 7% and that physi cians shoul d reeva luate the treat ment regim en in patie nts with HBA1C value s consi stent ly > 8%. <5.7% Gretchen l 5.7 - 6.4% Incre ased risk for diabe tyree >=6.5 % Diagn ostic of diabe tyree <7.0% Goal of thera py >8.0% Actio n sugge sted Not Available [facility] (Lab) [address] [place], [address], 03/18/2025 00:59:56 03/16/2003/16/2025 RPR SCREE N, REFLE X TITER /CONF IRMAT ION RPR qualitative Nonrea ctive nonrea ctive Not Available [facility] (Lab) [address], [place], [address], 03/18/2025 00:59:57 03/16/2003/16/2025 LEAD, BLOOD (ADUL T/PED IATRI C) lead, whole blood <1.0 mcg/d L <3.5 See Note 1 Marisabel sis was perfo rmed by Valerie Estevez ed Plasm a Mass Spect romet (ICPM S) Note 1 This test was devel oped and its marisabel tical perfo rmanc e russell cteri stics have been deter mined by [facility]. It has not been clear ed or appro corey by the FDA. This assay has been valid ated pursu ant to the CLIA regul ation s and is used for clini hossein purpo ses. Perfo rming Organ izati on Infor matio n: Site ID: CB Name: [facility] Justin Addre ss: [address] [place] [address] Direc tor: Anna qiu V Georges s Not Available [facility] (Lab) [address] [place], [address], 03/18/2025 00:59:57 03/16/2003/16/2025 CULTU RE: URINE result report SEE RESULT S BELOW Test: Cultu re: Urine Speci men Sourc e: Urine - Clean Catch Speci men Type: Urine Speci men Date: 2024 1004 Resul t Date: 2024 2155 Resul t Statu s: Final resul t Abnor mal: No Resul ting Lab: [facility] [address] [facility] [address] Tel: CULTU RE ----- ----- ----- --- No growt h in 1 day (dete ction level of 10,00 0 colon ies / ml.) Not Available [facility] (Lab) [address], [place], [address], 03/18/2025 15:41:18 03/16/20 25 03/16/2025 IMAGE GUIDE [...] Salena n: Eliot Bernstein, CT Speci men: Poornimajames self Pap - Image d, Cervi x STATE MENT OF ADEQU ACY: Satis facto ry for evalu ation Trans forma tion zone compo nent dotty t ----- ----- ----- ----- ----- ----- [...] as clini luli espinosa nted. Not Available [facility] (Lab) [address], [place], [address], 03/18/2025 15:41:19 03/16/20 25 03/16/2025 US, obste tric, nucha l trans lucen cy No observ ation record ed. MACEY Reyna [address], [place], [address], 03/17/2025 14:15:04 03/16/20 25 03/16/2025 US, obste tric, nucha l trans lucen cy No observ ation record ed. [email or web address] [place] [address], [place], [address], 03/16/2025 11:19:07 03/26/20 25 03/26/2025 US, obste tric, limit ed No observ ation record ed. [email or web address] [place] [address] [address], [place], [address], 04/09/2025 10:52:09 03/26/20 25 03/26/2025 US, obste tric, limit ed No observ ation record ed. [email or web address] [place] [address], [place], [address], 03/26/2025 14:02:40 05/12/20 25 05/12/2025 US, obste tric, 2nd or 3rd trime ster No observ ation record ed. [email or web address] [address], [place], [address], 05/12/2025 18:19:45 05/12/20 25 05/12/2025 US, obste tric, follo w-up No observ ation record ed. MACEY Reyna [address], [place], [address], 05/14/2025 11:08:32 Result Notes None recorded. Problems Name Problem SNOMED Code Status Onset Date Resolution Date Notes Provider Name and Address Organization Details Recorded Time Moderate asthma 172089589 Completed Rare use of inhaler Ashley hood [facility] 15:16:58 18484454 Completed 201909/13/2020 Christina Handy [facility] 5 10:10:56 [id number] Active 2024 Christina Gale [facility] 5 10:10:55 Problem Notes None recorded. Procedures Surgical History Date Name Laterality Status Provider Name and Address Organization Details Recorded Time 03/16/20 25 Date of Last Pap Smear completed Christina Gale [facility] 04/13/2025 09:43:20 07/01/19 02 appendectomy completed Zoraida Noel [facility] 12/18/2019 12:11:10 Imaging Results None [...] Not available Not available Not available 12/18/2019 12138 8003 SNOMED Zoraida Noel [facility] 0 12:11:48 Medications Name [...] Address Organization Details Last Updated DateTime 05/12/2025 05997.8555 g 114/72 mm[Hg] Leesa Gregg [facility] 05/12/2025 17:41:39 Social History Question Answer Notes LastModified by Organizat ion Details LastModified Time Tobacco Smoking Status Never Smoker Zoraida hood, [facility] 10/07/2020 14:13:21 Do You Have An Advance Directive? No Information n ot available 10/07/2020 If You Are , What Was Your Level Of Alcohol Consumption Prior To ? Occasional [email or web address] Information not available 10/07/2020 Are You Blind Or Do You Have Difficulty Seeing? No [email or web address] Information n ot available 08/24/2020 What Is Your Level Of Caffeine Consumption? Occasional Information not available 10/07/2020 In The 14 Days Before Symptom Onset, Have You Had Close Contact With A Laboratory-confirm ed COVID-19 While That Case Was Ill? No Information n ot available 08/24/2020 In The 14 Days Before Symptom Onset, Have You Had Close Contact With A Person Who Is Under Investigation For COVID-19 While That Person Was Ill? No [email or web address] Information not available 08/24/2020 Have You Been To An Area Known To Be High Risk For COVID-19? No Information not available 08/24/2020 Are You Deaf Or Do You Have Serious Difficulty Hearing? No [email or web address] Information not available 08/24/2020 What Type Of Diet Are You Following? REGULAR [email or web address] Information n ot available 08/24/2020 What Is The Highest Grade Or Level Of School You Have Completed Or The Highest Degree You Have Received? BV95909-9 [email or web address] Information not available 10/07/2020 Are There Any Guns Present In Your Home? Yes [email or web address] Information not available 10/07/2020 What Was The Date Of Your Most Recent Tobacco Screening? 10/07/2020 [email or web address] Information not available 10/07/2020 Have You Ever Been Counseled For Unhealthy Alcohol Use? No [email or web address] Information not available 10/07/2020 Do You Use Protection During Sex? Usually [email or web address] Information not available 10/07/2020 Do You Use Your Seat Belt Or Car Seat Routinely? Yes [email or web address] Information not available 08/24/2020 Do You Have Smoke And Carbon Monoxide Detectors In Your Home? Yes [email or web address] Information not available 08/24/2020 How Much Tobacco Do You Smoke? No [email or web address] Information not available 12/18/2019 Do You Use Sunscreen Routinely? No Information not available 02/15/2025 Has Tobacco Cessation Counseling Been Provided? No Information not available 10/07/2020 Have You Used IV Drugs? No [email or web address] Information not available 10/07/2020 Sex: Unknown Functional Status Question Answer Note LastModified by Organizat ion Details LastModified Time Do you use any illicit or recreational drugs? Yes Information not available 02/15/2025 Do you or have you ever used any other forms of tobacco or nicotine? No Information not available 10/07/2020 What is your level of alcohol consumption? Occasional [email or web address] Information not available 12/18/2019 Do you or have you ever used smokeless tobacco? Never used smokeless tobacco [email or web address] Information not available 10/07/2020 Are you able to walk independently without assistance or assistive devices? 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 Never used electronic cigarettes [email or web address] Information not available 10/07/2020 What is your exercise level? Moderate [email or web address] Information not available 10/07/2020 Mental Status Question Answer Note LastModified by Organization D etails LastModified Time Do you feel stressed (tense, restless, nervous, or anxious, or unable to sleep at night)? [id number] [email or web address] Information not available 08/24/2020 Family History Relationship Description Onset Age of this Age Resolved Age Notes LastModified by Organization Details LastModified Time Paternal Aunt Malignant neoplasm of breast [email or web address] Not available 12/17 12:09:07 Paternal Grandmother Heart disease [email or web address] Not available 12/17 12:09:21 Paternal Grandmother Diabetes mellitus [email or web address] Not available 12/17 12:09:33 Father Hypertensive disorder [email or web address] Not available 12/17 12:09:51 Father Hypercholest erolemia [email or web address] Not available 12/17 12:09:58 Mother Anemia [email or web address] Not available 12/18/2019 12:10:05 Medical History Condition [...] Recorded Time Tdap 08/31/2019 completed Zoraida Noel [facility] 12/18/2019 11:45:13 Past Encounters Encounter ID Performer Location Encounter Start Date Encounter Closed Date Diagnosis/Indication Diagnosis SNOMED-CT Code Diagnosis ICD10 Code Diagnosis IMO Codes Diagnosis Note [id number] JARED MARSHALL MD [place] [address],[place] [address] 04/13/2025 09:29:34 04/13/2025 10:08:49 care status 198487695 Z34.82 [id number] Stewart Mistry MD [place] [address],[place] [address] 05/12/2025 16:24:53 05/13/2025 08:50:53 Screening status 127673401 Z36.3 Z3A.20 [id number] Regina Hernandez CNM [place] [address],[place] [address] 05/12/2025 16:45:57 05/12/2025 17:55:07 Gestation period, 20 weeks [id number] Z3A.20 [id number] Health Concerns Section Related Observation LastModified by Organization Detai ls LastModified Time None Recorded Concern Status LastModified by Organization Details LastModified Time None Recorded Payers Encounter Date Sequence Insurance Name Policy Number Policy Grijalva Covered Member ID Grijalva Member ID Guarantor Name 05/12/2025 1 FLORIN [place] (PPO) [id number] 1 Golden Bentley [id number] Rhina Bentley Notes Date Note Type Note Provider Name and Address Organization Details Recorded Time 05/12/2025 text/html Generic HPI TemplateReported by Patient [address] [place], [address], [facility] 05/12/2025 17:54:26 OBGyn Episode Ob Episode Information Episode Created Date Number of Fetuses Patient Bloodtype Patient rh Status Prepregnancy Weight lbs Domestic Partner Domestic Partner Phone Father Name Crossing Flagman Status 03/16/20 25 1 O Positive Golden OPEN Fetus Data First Name Last Name Admitted to NICU Weight (g) Sex Living Outcome Pediatric Complications Fetus ID Race Codes Race Delivery Type 22004 Zeus Calculation Initial Zeus Date Initial Exam [...] Weight in lbs Pre/Post Dialysis Refused Weight 143.151807233233 BP Diastolic BP Location Tested BP Systolic BP Type 74 L arm 108 sitting Fetus Heart Rate Present A 162 Fetus Movement A No Comments Patient presents to [facility] care. Hx of 1 full [...] Type Weight in lbs Pre/Post Dialysis Refused 145.0228738470 BP Diastolic BP Location Tested BP Systolic [...] Type Weight in lbs Pre/Post Dialysis Refused 150.377189527334 BP Diastolic BP Location Tested BP Systolic BP Type 72 L arm 114 sitting Fetus Heart Rate Present Fetus Movement A Yes Comments Flowsheet Date 06/08/2025 Rhodes Score Blood Edema Fundus Height Fundus Units Glucose Ketones Leukocytes Nitrite Labor Signs Protein Cervic Dilation Cervic Effacement Cervic Station 20 cm Type Weight in lbs Pre/Post Dialysis Refused 156.887812282415 BP Diastolic BP Location Tested BP Systolic [...]
--- OUTSIDE RECORDS SUMMARY | 2025-06-13 15:45 | XMS_ITS | Continuity of Care Document ---
Author Organization [facility] Address [address] [place] [address] [place] [address] Assessment No assessment recorded. Plan of Treatment [...] None recorde d. Imaging US, obstetr ic, limited 2024 025 [email or web address] [facility] [address], [address], [place], [address], 03/26/2025 15:49:42 Medication Orders None recorde d. Patient TargetsNo targets recorded. Patient InstructionsNo instructions recorded. Reason for Referral None Reported. Results Created Date Observation Date Name Description Value Unit Range Abnormal Flag Note LastModifiedBy Organization Detail LastModifiedTime 03/26/2003/26/2025 [UNIT Y] ANEUP LOIDY NIPT fraction 11.1% normal Not Available [facility] [address], [place], [address], 03/26/2025 02:58:30 03/26/2003/26/2025 [UNIT Y] ANEUP LOIDY NIPT 22Q11.2 microdeletio n LOW RISK <1 in 10,000 normal Not Available [facility] [address], [place], [address], 03/26/2025 02:58:30 03/26/20 25 03/26/2025 [UNIT Y] ANEUP LOIDY NIPT sex chromosome aneuploidy NOT DETECT ED normal Not Available [facility] [address], [place], [address], 03/26/2025 02:58:30 03/26/20 25 03/26/2025 [UNIT Y] ANEUP LOIDY NIPT monosomy X LOW RISK <1 in 10,000 normal Not Available [facility] [address], [place], [address], 03/26/2025 02:58:30 03/26/20 25 03/26/2025 [UNIT Y] ANEUP LOIDY NIPT trisomy 13 LOW RISK <1 in 10,000 normal Not Available [facility] [address], [place], [address], 03/26/2025 02:58:30 03/26/20 25 03/26/2025 [UNIT Y] ANEUP LOIDY NIPT trisomy 18 LOW RISK <1 in 10,000 normal Not Available [facility] [address], [place], [address], 03/26/2025 02:58:30 03/26/20 25 03/26/2025 [UNIT Y] ANEUP LOIDY NIPT trisomy 21 LOW RISK <1 in 10,000 normal Not Available [facility] [address], [place], [address], 03/26/2025 02:58:30 03/26/20 25 03/26/2025 [UNIT Y] ANEUP LOIDY NIPT sex MALE normal Not Available [facility] [address], [place], [address], 03/26/2025 02:58:30 03/26/20 25 03/26/2025 [UNIT Y] ANEUP LOIDY NIPT gestation SINGLE TON normal Not Available [facility] [address], [place], [address], 03/26/2025 02:58:30 03/26/2003/26/2025 [UNIT Y] ANEUP LOIDY NIPT for detailed report, see pdf See PDF normal Not Available [facility] [address], [place], [address], 03/26/2025 02:58:30 03/16/2003/16/2025 HEPAT ITIS B SURFA CE ANTIG EN hepatitis B surface antigen Non-re active non-re active This assay was perfo rmed using [employer] ratio n reage nts and test kits. Value s obtai magali with other assay metho ds or kits canno t be used inter lane eably . Not Available [facility] (Lab) [address], [place], [address], 03/18/2025 00:59:55 03/16/2003/16/2025 CBC W/DIF F WBC 6.9 10'3/ uL 3.5-10 .5 Not Available [facility] (Lab) [address] [facility], [place], [address], 03/18/2025 00:59:55 03/16/2003/16/2025 CBC W/DIF F RBC 4.18 10'6/ uL (based on docume nted legal sex) 3.80-5 .20 Not Available [facility] (Lab) [address] , [place], [address], 03/18/2025 00:59:55 03/16/2003/16/2025 CBC W/DIF F HGB 12.8 g/dL (based on docume nted legal sex) 11.6-1 5.4 Not Available [facility] (Lab) [address] , [place], [address], 03/18/2025 00:59:55 03/16/2003/16/2025 CBC W/DIF F HCT 39.1 % (based on docume nted legal sex) 34.0-4 5.0 Not Available [facility] (Lab) [address], [place], [address], 03/18/2025 00:59:55 03/16/2003/16/2025 CBC W/DIF F MCV 93.5 fL 80.0-9 9.0 Not Available [facility] (Lab) [address], [place], [address], 03/18/2025 00:59:55 03/16/2003/16/2025 CBC W/DIF F MCH 30.6 pg 27.0-3 4.0 Not Available [facility] (Lab) [address], [place], [address], 03/18/2025 00:59:55 03/16/2003/16/2025 CBC W/DIF F MCHC 32.7 g/dL 32.0-3 5.5 Not Available [facility] (Lab) [address], [place], [address], 03/18/2025 00:59:55 03/16/2003/16/2025 CBC W/DIF F RDW 13.5 % 11.0-1 5.0 Not Available [facility] (Lab) [address], [place], [address], 03/18/2025 00:59:55 03/16/2003/16/2025 CBC W/DIF F plt 205 10'3/ uL 150-40 0 Not Available [facility] (Lab) [address] [place], [address], 03/18/2025 00:59:55 03/16/2003/16/2025 CBC W/DIF F MPV 10.5 fL 8.8-12 .1 Not Available [facility] (Lab) [address] [place], [address], 03/18/2025 00:59:55 03/16/2003/16/2025 CBC W/DIF F NRBC's 0.0 % 0.0 Not Available [facility] (Lab) [address] [facility], [place], [address], 03/18/2025 00:59:55 03/16/2003/16/2025 CBC W/DIF F absolute NRBCs 0.0 10'3/ uL no refere nce range establ ished Not Available [facility] (Lab) [address] [facility], [place], [address], 03/18/2025 00:59:55 03/16/2003/16/2025 CBC W/DIF F neutrophils 68.9 % 34.0-7 3.0 Not Available [facility] (Lab) [address] [facility], [place], [address], 03/18/2025 00:59:55 03/16/2003/16/2025 CBC W/DIF F lymphocytes 21.7 % 15.0-5 0.0 Not Available [facility] (Lab) [address] [facility], [place], [address], 03/18/2025 00:59:55 03/16/2003/16/2025 CBC W/DIF F monocytes 8.5 % 1.0-15 .0 Not Available [facility] (Lab) [address] [facility], [place], [address], 03/18/2025 00:59:55 03/16/2003/16/2025 CBC W/DIF F eosinophils 0.3 % 0.0-8. 0 Not Available [facility] (Lab) [address] [facility], [place], [address], 03/18/2025 00:59:55 03/16/2003/16/2025 CBC W/DIF F basophils 0.3 % 0.0-2. 0 Not Available [facility] (Lab) [address] [facility], [place], [address], 03/18/2025 00:59:55 03/16/2003/16/2025 CBC W/DIF F immature granulocytes 0.3 % no define d refere nce range Immat ure Granu locyt es (IG) repre sents autom ated enume ratio n of Metam yeloc ytes, Myelo cytes and Promy elocy tyree when IG is < 5%. Blast s are not inclu ded in IG and repor ten separ ately if prese nt. Not Available [facility] (Lab) [address] [facility], [place], [address], 03/18/2025 00:59:55 03/16/2003/16/2025 CBC W/DIF F absolute neutrophils 4.8 10'3/ uL 1.5-8. 0 Not Available [facility] (Lab) [address] [facility], [place], [address], 03/18/2025 00:59:55 03/16/2003/16/2025 CBC W/DIF F absolute lymphocytes 1.5 10'3/ uL 1.0-4. 0 Not Available [facility] (Lab) [address] [facility], [place], [address], 03/18/2025 00:59:55 03/16/2003/16/2025 CBC W/DIF F absolute monocytes 0.6 10'3/ uL 0.2-1. 0 Not Available [facility] (Lab) [address] [facility], [place], [address], 03/18/2025 00:59:55 03/16/2003/16/2025 CBC W/DIF F absolute eosinophils 0.0 10'3/ uL 0.0-0. 6 Not Available [facility] (Lab) [address] [place], [address], 03/18/2025 00:59:55 03/16/2003/16/2025 CBC W/DIF F absolute basophils 0.0 10'3/ uL 0.0-0. 3 Not Available [facility] (Lab) [address], [place], [address], 03/18/2025 00:59:55 03/16/2003/16/2025 CBC W/DIF F absolute [...] zuluaga book. nm.or g/gen derx Not Available [facility] (Lab) [address], [place], [address], 03/18/2025 00:59:55 03/16/2003/16/2025 HIV 1/2 ANTIG EN/AN TIBOD Y, REFLE X CONFI RMATI ON HIV antigen/anti body Nonrea ctive nonrea ctive HIV-1 antig en and HIV-1 /HIV- 2 antib odies were not detec ten. No labor atory evide nce of HIV infec tion. Not Available [facility] (Lab) [address], [place], [address], 03/18/2025 00:59:55 03/16/2003/16/2025 HEPAT ITIS C ANTIB RICCO SCREE N, REFLE X TO CONFI RMATI ON hepatitis C antibody Non-re active non-re active Antib odies to HCV Not Detec ten, does not exclu de the possi bilit y of expos ure to HCV. Not Available [facility] (Lab) [address], [place], [address], 03/18/2025 00:59:56 03/16/2003/16/2025 RUBEL LA IGG ANTIB RICCO, QUANT rubella antibodies, IgG Reacti ve reacti ve Not Available [facility] (Lab) [address] [facility], [place], [address], 03/18/2025 00:59:56 03/16/2003/16/2025 RUBEL LA IGG ANTIB RICCO, QUANT rubella antibodies, IgG quant 18.6 IU/mL >=10 Non-r eacti ve (Non- Immun e) <10 IU/mL React shaina (Immu ne) > or = 10 IU/mL Not Available [facility] (Lab) [address] [facility], [place], [address], 03/18/2025 00:59:56 03/16/2003/16/2025 TYPE/ RH/SC REEN ABO/Rh type O POS Not Available [facility] (Lab) [address] [facility], [place], [address], 03/18/2025 00:59:56 03/16/20 25 03/16/2025 TYPE/ RH/SC REEN antibody screen NEG Not Available [facility] (Lab) [address] [facility], [place], [address], 03/18/2025 00:59:56 03/16/2003/16/2025 TYPE/ RH/SC REEN exp date 2024 23:59 Not Available [facility] (Lab) [address] [facility], [place], [address], 03/18/2025 00:59:56 03/16/2003/16/2025 HEMOG LOBIN A1C hemoglobin [...] >8.0% Actio n sugge sted Not Available [facility] (Lab) [address] [place], [address], 03/18/2025 00:59:56 03/16/2003/16/2025 RPR SCREE N, REFLE X TITER /CONF IRMAT ION RPR qualitative Nonrea ctive nonrea ctive Not Available [facility] (Lab) [address] [facility], [place], [address], 03/18/2025 00:59:57 03/16/2003/16/2025 LEAD, BLOOD (ADUL T/PED IATRI C) lead, whole blood <1.0 mcg/d L <3.5 See Note 1 Marisabel sis was perfo rmed by Valerie Estevez ed Plasm a Mass Spect romet ry (ICPM S) Note 1 This test was devel oped and its marisabel tical perfo rmanc e russell cteri stics have been deter mined by [employer]. It has not been clear ed or appro corey by the FDA. This assay has been valid ated pursu ant to the CLIA regul ation s and is used for clini hossein purpo ses. Perfo rming Organ izati on Infor mattin n: Site ID: CB Name: [employer]-Cristopher Justin Addre ss: [address] [place] [address] Direc tor: Anna Greena s Not Available [facility] (Lab) [address] [place], [address], 03/18/2025 00:59:57 03/16/2003/16/2025 CULTU RE: URINE result report SEE RESULT S BELOW Test: Cultu re: Urine Speci men Sourc e: Urine - Clean Catch Speci men Type: Urine Speci men Date: 2024 1004 Resul t Date: 2024 2155 Resul t Statu s: Final resul t Abnor mal: No Resul ting Lab: [facility] [address] [facility] [address] Tel: CULTU RE ----- ----- ----- --- No growt h in 1 day (dete ction level of 10,00 0 colon ies / ml.) Not Available [facility] (Lab) [address] [facility], [place], [address], 03/18/2025 15:41:18 03/16/20 25 03/16/2025 IMAGE GUIDE D PAP AND HPV REGAR DLESS image guided Pap, HPV regardless of Pap result SEE RESULT S BELOW CASE REPOR T: Cytol ogy Gynec ologi hossein Repor t Case: [id number] Autho josefinaannmarie shani Provi jennifer: Remy Elliott MD Colle [...] ([facility]) . Elect galileo claire by Eliot Bernstein, [...] as clini luli espinosa nted. Not Available [facility] (Lab) [address], [place], [address], 03/18/2025 15:41:19 03/16/20 25 03/16/2025 US, obste tric, nucha l trans lucen cy No observ ation record ed. MACEY Orellana [address], [place], [address], 03/17/2025 14:15:04 03/16/20 25 03/16/2025 US, obste tric, nucha l trans lucen cy No observ ation record ed. [email or web address] [facility] [address], [place], [address], 03/16/2025 11:19:07 03/26/20 25 03/26/2025 US, obste tric, limit ed No observ ation record ed. [email or web address] [place] [address] [address], [place], [address], 04/09/2025 10:52:09 03/26/20 25 03/26/2025 US, obste tric, limit ed No observ ation record ed. [email or web address] [facility] [address], [place], [address], 03/26/2025 14:02:40 05/12/20 25 05/12/2025 US, obste tric, 2nd or 3rd trime ster No observ ation record ed. [email or web address] [address], [place], [address], 05/12/2025 18:19:45 05/12/20 25 05/12/2025 US, obste tric, follo w-up No observ ation record ed. MACEY Reyna [address], [place], [address], 05/14/2025 11:08:32 Result Notes None recorded. Problems Name Problem SNOMED Code Status Onset Date Resolution Date Notes Provider Name and Address Organization Details Recorded Time Moderate asthma 507464825 Completed Rare use of inhaler Ashley hood [facility] 15:16:58 [id number] Completed 201909/13/2020 Christina Handy [facility] 5 10:10:56 50199765 Active 2024 Christina Gale [facility] 5 10:10:55 Problem Notes None recorded. Procedures Surgical History Date Name Laterality Status Provider Name and Address Organization Details Recorded Time 03/16/20 25 Date of Last Pap Smear completed Christina Gale [facility] 04/13/2025 09:43:20 07/01/19 02 appendectomy completed Zoraida Noel [facility] 12/18/2019 12:11:10 Imaging Results None recorded. [...] Not available Not available Not available 12/18/2019 [id number] SNOMED Zoraida Noel [facility] 0 12:11:48 Medications Name Sig Start [...] Not Available Not Available Not Available Vitals None Recorded Social History Question Answer Notes LastModified by Organizat ion Details LastModified Time Tobacco Smoking Status Never Smoker Zoraida Noel [facility], [facility] 10/07/2020 14:13:21 Do You Have An Advance Directive? No [email or web address] Information n ot available 10/07/2020 If You Are , What Was Your Level Of Alcohol Consumption Prior To ? Occasional [email or web address] Information not available 10/07/2020 Are You Blind Or Do You Have Difficulty Seeing? No [email or web address] Information n ot available 08/24/2020 What Is Your Level Of Caffeine Consumption? Occasional [email or web address] Information not available 10/07/2020 In The 14 Days Before Symptom Onset, Have You Had Close Contact With A Laboratory-confirm ed COVID-19 While That Case Was Ill? No [email or web address] Information n ot available 08/24/2020 In The 14 Days Before Symptom Onset, Have You Had Close Contact With A Person Who Is Under Investigation For COVID-19 While That Person Was Ill? No [email or web address] Information not available 08/24/2020 Have You Been To An Area Known To Be High Risk For COVID-19? No [email or web address] Information not available 08/24/2020 Are You Deaf Or Do You Have Serious Difficulty Hearing? No [email or web address] Information not available 08/24/2020 What Type Of Diet Are You Following? REGULAR [email or web address] Information n ot available 08/24/2020 What Is The Highest Grade Or Level Of School You Have Completed Or The Highest Degree You Have Received? CX28728-1 [email or web address] Information not available 10/07/2020 Are There Any Guns Present In Your Home? Yes [email or web address] Information not available 10/07/2020 What Was The Date Of Your Most Recent Tobacco Screening? 10/07/2020 [email or web address] Information not available 10/07/2020 Have You Ever Been Counseled For Unhealthy Alcohol Use? No [email or web address] Information not available 10/07/2020 Do You Use Protection During Sex? Usually [email or web address] Information not available 10/07/2020 Do You Use Your Seat Belt Or Car Seat Routinely? Yes Information not available 08/24/2020 Do You Have Smoke And Carbon Monoxide Detectors In Your Home? Yes Information not available 08/24/2020 How Much Tobacco Do You Smoke? No [email or web address] Information not available 12/18/2019 Do You Use Sunscreen Routinely? No Information not available 02/15/2025 Has Tobacco Cessation Counseling Been Provided? No [email or web address] Information not available 10/07/2020 Have You Used IV Drugs? No [email or web address] Information not available 10/07/2020 Sex: Unknown Functional Status Question Answer Note LastModified by Organizat ion Details LastModified Time Do you use any illicit or recreational drugs? Yes Information not available 02/15/2025 Do you or have you ever used any other forms of tobacco or nicotine? No [email or web address] Information not available 10/07/2020 What is your level of alcohol consumption? Occasional [email or web address] Information not available 12/18/2019 Do you or have you ever used smokeless tobacco? Never used smokeless tobacco [email or web address] Information not available 10/07/2020 Are you able to walk independently without assistance or assistive devices? 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 Never used electronic cigarettes [email or web address] Information not available 10/07/2020 What is your exercise level? Moderate [email or web address] Information not available 10/07/2020 Mental Status Question Answer Note LastModified by Organization D etails LastModified Time Do you feel stressed (tense, restless, nervous, or anxious, or unable to sleep at night)? [id number] [email or web address] Information not available 08/24/2020 Family History Relationship Description Onset Age of this Age Resolved Age Notes LastModified by Organization Details LastModified Time Paternal Aunt Malignant neoplasm of breast [email or web address] Not available 12/17 12:09:07 Paternal Grandmother Heart disease [email or web address] Not available 12/17 12:09:21 Paternal Grandmother Diabetes mellitus [email or web address] Not available 12/17 12:09:33 Father Hypertensive disorder [email or web address] Not available 12/17 12:09:51 Father Hypercholest erolemia [email or web address] Not available 12/17 12:09:58 Mother Anemia [email or web address] Not available 12/18/2019 12:10:05 Medical History Condition Response Allergies (Food, seasonal, environmental ) N Other N Drug/Latex Allergies/Reactions N Breast Cancer N Blood Transfusion N Lung Disease N Dermatologic Disorders N Defects or Inherited Disease N Breast Problem N Gestational Diabetes N Hematologic disorders N Anesthesia Complications N History of STI N Deep Vein Thrombosis N Polycystic ovary syndrome N Anxiety Disorder N Autoimmune disease N Arthritis N Polyps N Infertility N History of abnormal pap N Acid Reflux (GERD) N Cancer N [...] Recorded Time Tdap 08/31/2019 completed Zoraida Noel [facility] 12/18/2019 11:45:13 Past Encounters Encounter ID Performer Location Encounter Start Date Encounter Closed Date Diagnosis/Indication Diagnosis SNOMED-CT Code Diagnosis ICD10 Code Diagnosis IMO Codes Diagnosis Note [id number] JARED MARSHALL MD [facility] [address] [address] 03/16/2025 09:22:30 03/16/2025 10:19:29 screening 568913859 Z36.82 Z3A.12 [id number] JARED MARSHALL MD [facility] [address],[place] [address] 03/16/2025 09:26:22 03/16/2025 11:10:22 screening 782241199 Z36.89 Gestation period, 12 weeks 04681048 Z3A.12 9018112 Gynecologi c examination 00295671 Z01.419 Z11.51 [id number] JARED MARSHALL MD [facility] [address],[place] [address] 03/26/2025 12:55:04 03/26/2025 13:34:31 Threatened miscarriage 05986510 O20.0 Z3A.13 06421 Health Concerns Section Related Observation LastModified by Organization Detai ls LastModified Time None Recorded Concern Status LastModified by Organization Details LastModified Time None Recorded Payers Encounter Date Sequence Insurance Name Policy Number Policy Grijalva Covered Member ID Grijalva Member ID Guarantor Name 03/26/2025 1 FLORIN [place] (PPO) [id number] 1 Golden Bentley [id number] Pankajxacharissa Bentley OBGyn Episode Ob Episode Information Episode Created Date Number of Fetuses Patient Bloodtype Patient rh Status Prepregnancy Weight lbs Domestic Partner Domestic Partner Phone Father Name Manager Clinical Informatics Status 03/16/20 25 1 O Positive Golden OPEN Fetus Data First Name Last Name Admitted to NICU Weight (g) Sex Living Outcome Pediatric Complications Fetus ID Race Codes Race Delivery Type [id number] Zeus Calculation Initial Zeus Date Initial Exam [...] Weight in lbs Pre/Post Dialysis Refused Weight 143.259012363884 BP Diastolic BP Location Tested BP Systolic BP Type 74 L arm 108 sitting Fetus Heart Rate Present A 162 Fetus Movement A No Comments Patient presents to [facility] care. Hx of 1 full term . [...] Type Weight in lbs Pre/Post Dialysis Refused 145.8099692121 BP Diastolic BP Location Tested BP Systolic [...] Type Weight in lbs Pre/Post Dialysis Refused 150.902397627750 BP Diastolic BP Location Tested BP Systolic BP Type 72 L arm 114 sitting Fetus Heart Rate Present Fetus Movement A Yes Comments Flowsheet Date 06/08/2025 Rhodes Score Blood Edema Fundus Height Fundus Units Glucose Ketones Leukocytes Nitrite Labor Signs Protein Cervic Dilation Cervic Effacement Cervic Station 20 cm Type Weight in lbs Pre/Post Dialysis Refused 156.727905310688 BP Diastolic BP Location Tested BP Systolic [...]
--- OUTSIDE RECORDS SUMMARY | 2025-06-13 15:45 | XMS_ITS | Continuity of Care Document ---
Author Organization [facility] Address [address] [place] [address] [place] [address] Assessment No assessment recorded. Plan of Treatment [...] None recorde d. Imaging US, obstetr ic, nuchal translu cency 2024 025 [email or web address] [facility] [address], [place], [address], 03/16/2025 15:05:09 Medication Orders None recorde d. Patient TargetsNo targets recorded. Patient InstructionsNo instructions recorded. Reason for Referral None Reported. Results Created Date Observation Date Name Description Value Unit Range Abnormal Flag Note LastModifiedBy Organization Detail LastModifiedTime 03/16/2003/16/2025 HEPAT ITIS B SURFA CE ANTIG EN hepatitis B surface antigen Non-re active non-re active This assay was perfo rmed using [employer] ratio n reage nts and test kits. Value s obtai magali with other assay metho ds or kits canno t be used inter lane eably . Not Available [facility] (Lab) [address], [place], [address], 03/18/2025 00:59:55 03/16/20 25 03/16/2025 CBC W/DIF F WBC 6.9 10'3/ uL 3.5-10 .5 Not Available [facility] (Lab) [address], [place], [address], 03/18/2025 00:59:55 03/16/20 25 03/16/2025 CBC W/DIF F RBC 4.18 10'6/ uL (based on docume nted legal sex) 3.80-5 .20 Not Available [facility] (Lab) [address], [place], [address], 03/18/2025 00:59:55 03/16/2003/16/2025 CBC W/DIF F HGB 12.8 g/dL (based on docume nted legal sex) 11.6-1 5.4 Not Available [facility] (Lab) [address], [place], [address], 03/18/2025 00:59:55 03/16/2003/16/2025 CBC W/DIF F HCT 39.1 % (based on docume nted legal sex) 34.0-4 5.0 Not Available [facility] (Lab) [address], [place], [address], 03/18/2025 00:59:55 03/16/2003/16/2025 CBC W/DIF F MCV 93.5 fL 80.0-9 9.0 Not Available [facility] (Lab) [address], [place], [address], 03/18/2025 00:59:55 03/16/2003/16/2025 CBC W/DIF F MCH 30.6 pg 27.0-3 4.0 Not Available [facility] (Lab) [address], [place], [address], 03/18/2025 00:59:55 03/16/2003/16/2025 CBC W/DIF F MCHC 32.7 g/dL 32.0-3 5.5 Not Available [facility] (Lab) [address] [facility], [place], [address], 03/18/2025 00:59:55 03/16/2003/16/2025 CBC W/DIF F RDW 13.5 % 11.0-1 5.0 Not Available [facility] (Lab) [address] [facility], [place], [address], 03/18/2025 00:59:55 03/16/2003/16/2025 CBC W/DIF F plt 205 10'3/ uL 150-40 0 Not Available [facility] (Lab) [address] [facility], [place], [address], 03/18/2025 00:59:55 03/16/2003/16/2025 CBC W/DIF F MPV 10.5 fL 8.8-12 .1 Not Available [facility] (Lab) [address] [facility], [place], [address], 03/18/2025 00:59:55 03/16/2003/16/2025 CBC W/DIF F NRBC's 0.0 % 0.0 Not Available [facility] (Lab) [address] [facility], [place], [address], 03/18/2025 00:59:55 03/16/2003/16/2025 CBC W/DIF F absolute NRBCs 0.0 10'3/ uL no refere nce range establ ished Not Available [facility] (Lab) [address] [facility], [place], [address], 03/18/2025 00:59:55 03/16/2003/16/2025 CBC W/DIF F neutrophils 68.9 % 34.0-7 3.0 Not Available [facility] (Lab) [address] [facility], [place], [address], 03/18/2025 00:59:55 03/16/2003/16/2025 CBC W/DIF F lymphocytes 21.7 % 15.0-5 0.0 Not Available [facility] (Lab) [address] [facility], [place], [address], 03/18/2025 00:59:55 03/16/2003/16/2025 CBC W/DIF F monocytes 8.5 % 1.0-15 .0 Not Available [facility] (Lab) [address] [facility], [place], [address], 03/18/2025 00:59:55 03/16/2003/16/2025 CBC W/DIF F eosinophils 0.3 % 0.0-8. 0 Not Available [facility] (Lab) [address] [facility], [place], [address], 03/18/2025 00:59:55 03/16/2003/16/2025 CBC W/DIF F basophils 0.3 % 0.0-2. 0 Not Available [facility] (Lab) [address] [facility], [place], [address], 03/18/2025 00:59:55 03/16/2003/16/2025 CBC W/DIF F immature granulocytes 0.3 % no define d refere nce range Immat ure Granu locyt es (IG) repre sents autom ated enume ratio n of Metam yeloc ytes, Myelo cytes and Promy elocy tyree when IG is < 5%. Blast s are not inclu ded in IG and repor ten separ ately if prese nt. Not Available [facility] (Lab) [address] [facility], [place], [address], 03/18/2025 00:59:55 03/16/2003/16/2025 CBC W/DIF F absolute neutrophils 4.8 10'3/ uL 1.5-8. 0 Not Available [facility] (Lab) [address] [facility], [place], [address], 03/18/2025 00:59:55 03/16/2003/16/2025 CBC W/DIF F absolute lymphocytes 1.5 10'3/ uL 1.0-4. 0 Not Available [facility] (Lab) [address] [facility], [place], [address], 03/18/2025 00:59:55 03/16/2003/16/2025 CBC W/DIF F absolute monocytes 0.6 10'3/ uL 0.2-1. 0 Not Available [facility] (Lab) [address] [facility], [place], [address], 03/18/2025 00:59:55 03/16/2003/16/2025 CBC W/DIF F absolute eosinophils 0.0 10'3/ uL 0.0-0. 6 Not Available [facility] (Lab) [address] [facility], [place], [address], 03/18/2025 00:59:55 03/16/2003/16/2025 CBC W/DIF F absolute basophils 0.0 10'3/ uL 0.0-0. 3 Not Available [facility] (Lab) [address] [facility], [place], [address], 03/18/2025 00:59:55 03/16/2003/16/2025 CBC W/DIF F absolute [...] zuluaga book. nm.or g/gen derx Not Available [facility] (Lab) [address] [facility], [place], [address], 03/18/2025 00:59:55 03/16/2003/16/2025 HIV 1/2 ANTIG EN/AN TIBOD Y, REFLE X CONFI RMATI ON HIV antigen/anti body Nonrea ctive nonrea ctive HIV-1 antig en and HIV-1 /HIV- 2 antib odies were not detec ten. No labor atory evide nce of HIV infec tion. Not Available [facility] (Lab) [address] [facility], [place], [address], 03/18/2025 00:59:55 03/16/2003/16/2025 HEPAT ITIS C ANTIB RICCO SCREE N, REFLE X TO CONFI RMATI ON hepatitis C antibody Non-re active non-re active Antib odies to HCV Not Detec ten, does not exclu de the possi bilit y of expos ure to HCV. Not Available [facility] (Lab) [address] [facility], [place], [address], 03/18/2025 00:59:56 03/16/2003/16/2025 RUBEL LA IGG ANTIB RICCO, QUANT rubella antibodies, IgG Reacti ve reacti ve Not Available [facility] (Lab) [address] [facility], [place], [address], 03/18/2025 00:59:56 03/16/2003/16/2025 RUBEL LA IGG ANTIB RICOC, QUANT rubella antibodies, IgG quant 18.6 IU/mL >=10 Non-r eacti ve (Non- Immun e) <10 IU/mL React shaina (Immu ne) > or = 10 IU/mL Not Available [facility] (Lab) [address] [facility], [place], [address], 03/18/2025 00:59:56 03/16/2003/16/2025 TYPE/ RH/SC REEN ABO/Rh type O POS Not Available [facility] (Lab) [address] [facility], [place], [address], 03/18/2025 00:59:56 03/16/2003/16/2025 TYPE/ RH/SC REEN antibody screen NEG Not Available [facility] (Lab) [address] [facility], [place], [address], 03/18/2025 00:59:56 03/16/2003/16/2025 TYPE/ RH/SC REEN exp date 2024 23:59 Not Available [facility] (Lab) [address] [facility], [place], [address], 03/18/2025 00:59:56 03/16/2003/16/2025 HEMOG LOBIN A1C hemoglobin [...] >8.0% Actio n sugge sted Not Available [facility] (Lab) [address] [facility], [place], [address], 03/18/2025 00:59:56 03/16/2003/16/2025 RPR SCREE N, REFLE X TITER /CONF IRMAT ION RPR qualitative Nonrea ctive nonrea ctive Not Available [facility] (Lab) [address] [place], [address], 03/18/2025 00:59:57 03/16/2003/16/2025 LEAD, BLOOD (ADUL T/PED IATRI C) lead, whole blood <1.0 mcg/d L <3.5 See Note 1 Marisabel sis was perfo rmed by Valerie Estevez ed Plasm a Mass Spect romet ry (ICPM S) Note 1 This test was devel oped and its marisabel tical perfo rmanc e russell cteri stics have been deter mined by [facility] ostic s. It has not been clear ed or appro corey by the FDA. This assay has been valid ated pursu ant to the CLIA regul ation s and is used for clini hossein purpo ses. Perfo rming Organ izati on Infor matio n: Site ID: CB Name: [facility] ostic s-Nicholas dakotah Justin Addre ss: [address] [place] [address] Direc tor: Anna Su s Not Available [facility] (Lab) [address] [facility], [place], [address], 03/18/2025 00:59:57 03/16/2003/16/2025 CULTU RE: URINE result report SEE RESULT S BELOW Test: Cultu re: Urine Speci men Sourc e: Urine - Clean Catch Speci men Type: Urine Speci men Date: 2024 1004 Resul t Date: 2024 Resul t Statu s: Final resul t Abnor mal: No Resul ting Lab: [facility] [address] [facility] [address] Tel: CULTU RE ----- ----- ----- --- No growt h in 1 day (dete ction level of 10,00 0 colon ies / ml.) Not Available [facility] (Lab) [address] [facility], [place], [address], 03/18/2025 15:41:18 03/16/2003/16/2025 IMAGE GUIDE D PAP [...] OSIS: Negat shaina for Intra epith elial Lestin black or Josias aguilar (NIL) . Elect [...] ng do not corre late with physi hosseni and/o r histo rical findi ngs, furth er inves tigat ion is recom yessica d, as clini luli espinosa nted. Not Available [facility] (Lab) [address], [place], [address], 03/18/2025 15:41:19 03/16/2003/16/2025 US, obste tric, nucha l trans lucen cy No observ ation record ed. MACEY Reyna [address], [place], [address], 03/17/2025 14:15:04 03/16/2003/16/2025 US, obste tric, nucha l trans lucen cy No observ ation record ed. [email or web address] [facility] [address], [place], [address], 03/16/2025 11:19:07 03/26/2003/26/2025 US, obste tric, limit ed No observ ation record ed. [email or web address] [facility] [address], [place], [address], 04/09/2025 10:52:09 03/26/2003/26/2025 US, obste tric, limit ed No observ ation record ed. [email or web address] [facility] [address], [place], [address], 03/26/2025 14:02:40 05/12/20 25 05/12/2025 US, obste tric, 2nd or 3rd trime ster No observ ation record ed. [facility] [address], [place], [address], 05/12/2025 18:19:45 05/12/20 25 05/12/2025 US, obste tric, follo w-up No observ ation record ed. MACEY Aguilae [address], [place], [address], 05/14/2025 11:08:32 Result Notes None recorded. Problems Name Problem SNOMED Code Status Onset Date Resolution Date Notes Provider Name and Address Organization Details Recorded Time Moderate asthma 221010934 Completed Rare use of inhaler Ashley sims [facility] 1 15:16:58 [id number] Completed 201909/13/2020 Christina Gale [facility] 5 10:10:56 17330629 Active 2024 Christina Gale [facility] 5 10:10:55 Problem Notes None recorded. Procedures Surgical History Date Name Laterality Status Provider Name and Address Organization Details Recorded Time 03/16/20 25 Date of Last Pap Smear completed Christina Gale [facility] 04/13/2025 09:43:20 07/01/19 02 appendectomy completed Zoraida Noel [facility] 12/18/2019 12:11:10 Imaging Results None recorded. [...] Not available Not available Not available 12/18/2019 41700 8188 SNOMED Zoraida hood [facility] 12:11:48 Medications Name Sig Start Date [...] Updated DateTime 03/16/2025 167.01 cm 23.3 kg/m2 45888.71 g 108/74 mm[Hg] Christina Gale [facility] 03/16/2025 10:10:46 Social History Question Answer Notes LastModified by Organizat ion Details LastModified Time Tobacco Smoking Status Never Smoker Zoraida hood [facility] 10/07/2020 14:13:21 Do You Have An Advance Directive? No [email or web address] Information n ot available 10/07/2020 If You Are , What Was Your Level Of Alcohol Consumption Prior To ? Occasional [email or web address] Information not available 10/07/2020 Are You Blind Or Do You Have Difficulty Seeing? No [email or web address] Information n ot available 08/24/2020 What Is Your Level Of Caffeine Consumption? Occasional [email or web address] Information not available 10/07/2020 In The 14 Days Before Symptom Onset, Have You Had Close Contact With A Laboratory-confirm ed COVID-19 While That Case Was Ill? No Information n ot available 08/24/2020 In The 14 Days Before Symptom Onset, Have You Had Close Contact With A Person Who Is Under Investigation For COVID-19 While That Person Was Ill? No [email or web address] Information not available 08/24/2020 Have You Been To An Area Known To Be High Risk For COVID-19? No [email or web address] Information not available 08/24/2020 Are You Deaf Or Do You Have Serious Difficulty Hearing? No Information not available 08/24/2020 What Type Of Diet Are You Following? REGULAR [email or web address] Information n ot available 08/24/2020 What Is The Highest Grade Or Level Of School You Have Completed Or The Highest Degree You Have Received? [id number] [email or web address] Information not available 10/07/2020 Are There Any Guns Present In Your Home? Yes [email or web address] Information not available 10/07/2020 What Was The Date Of Your Most Recent Tobacco Screening? 10/07/2020 Information not available 10/07/2020 Have You Ever Been Counseled For Unhealthy Alcohol Use? No [email or web address] Information not available 10/07/2020 Do You Use Protection During Sex? Usually Information not available 10/07/2020 Do You Use Your Seat Belt Or Car Seat Routinely? Yes [email or web address] Information not available 08/24/2020 Do You Have Smoke And Carbon Monoxide Detectors In Your Home? Yes [email or web address] Information not available 08/24/2020 How Much Tobacco Do You Smoke? No [email or web address] Information not available 12/18/2019 Do You Use Sunscreen Routinely? No Information not available 02/15/2025 Has Tobacco Cessation Counseling Been Provided? No [email or web address] Information not available 10/07/2020 Have You Used IV Drugs? No [email or web address] Information not available 10/07/2020 Sex: Unknown Functional Status Question Answer Note LastModified by Organizat ion Details LastModified Time Do you use any illicit or recreational drugs? Yes Information not available 02/15/2025 Do you or have you ever used any other forms of tobacco or nicotine? No [email or web address] Information not available 10/07/2020 What is your level of alcohol consumption? Occasional [email or web address] Information not available 12/18/2019 Do you or have you ever used smokeless tobacco? Never used smokeless tobacco [email or web address] Information not available 10/07/2020 Are you able to walk independently without assistance or assistive devices? 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 Never used electronic cigarettes [email or web address] Information not available 10/07/2020 What is your exercise level? Moderate [email or web address] Information not available 10/07/2020 Mental Status Question Answer Note LastModified by Organization D etails LastModified Time Do you feel stressed (tense, restless, nervous, or anxious, or unable to sleep at night)? [id number] [email or web address] Information not available 08/24/2020 Family History Relationship Description Onset Age of this Age Resolved Age Notes LastModified by Organization Details LastModified Time Paternal Aunt Malignant neoplasm of breast Not available 12/17 12:09:07 Paternal Grandmother Heart disease [email or web address] Not available 12/17 12:09:21 Paternal Grandmother Diabetes mellitus [email or web address] Not available 12/17 12:09:33 Father Hypertensive disorder [email or web address] Not available 12/17 12:09:51 Father Hypercholest erolemia [email or web address] Not available 12/17 12:09:58 Mother Anemia [email or web address] Not available 12/18/2019 12:10:05 Medical History Condition [...] Recorded Time Tdap 08/31/2019 completed Zoraida hood [facility] 12/18/2019 11:45:13 Past Encounters Encounter ID Performer Location Encounter Start Date Encounter Closed Date Diagnosis/Indication Diagnosis SNOMED-CT Code Diagnosis ICD10 Code Diagnosis IMO Codes Diagnosis Note [id number] JARED MARSHALL MD [facility] [address] [place] [address] 02/15/2025 13:47:53 02/15/2025 14:30:58 [id number] JARED MARSHALL MD [facility] [address] [place] [address] 02/15/2025 14:19:25 02/15/2025 15:40:13 Nausea and vomiting 06351119 R11.2 [id number] test positive 195030366 Z32.01 056372 1. Exam today within normal limits.2. Ultrasound today confirms GA and viability. EDC . *GC/Clamyd ia testing done: will f/u as indicated. 4. ACOG guidelines and plan of care for reviewed with patient. All questions answered.5 . Return to office at 12 weeks for new OB visit6. Will need new OB labs at next visit.7. Genetic screening: declines [id number] JARED MARSHALL MD [facility] [address] [address] 03/16/2025 09:22:30 03/16/2025 10:19:29 screening 751743541 Z36.82 Z3A.12 [id number] JARED MARSHALL MD [facility] [address] [address] 03/16/2025 09:26:22 03/16/2025 11:10:22 screening 402564567 Z36.89 Gestation period, 12 weeks 20112991 Z3A.12 1498181 Gynecologi c examination 43328520 Z01.419 Z11.51 Health Concerns Section Related Observation LastModified by Organization Detai ls LastModified Time None Recorded Concern Status LastModified by Organization Details LastModified Time None Recorded Payers Encounter Date Sequence Insurance Name Policy Number Policy Grijalva Covered Member ID Grijalva Member ID Guarantor Name 03/16/2025 1 [place] ([facility]) [id number] 1 Golden Bentley [id number] 89 Rhina Bentley OBGyn Episode Ob Episode Information Episode Created Date Number of Fetuses Patient Bloodtype Patient rh Status Prepregnancy Weight lbs Domestic Partner Domestic Partner Phone Father Name [employer] Supervisor Status 03/16/20 25 1 O Positive Golden OPEN Fetus Data First Name Last Name Admitted to NICU Weight (g) Sex Living Outcome Pediatric Complications Fetus ID Race Codes Race Delivery Type [id number] Zeus Calculation Initial Zeus Date Initial Exam [...] Weight in lbs Pre/Post Dialysis Refused Weight 143.213157892602 BP Diastolic BP Location Tested BP Systolic BP Type 74 L arm 108 sitting Fetus Heart Rate Present A 162 Fetus Movement A No Comments Patient presents to [facility] care. Hx of 1 full term [...] Type Weight in lbs Pre/Post Dialysis Refused 145.9910620453 BP Diastolic BP Location Tested BP Systolic [...] Type Weight in lbs Pre/Post Dialysis Refused 150.504969522484 BP Diastolic BP Location Tested BP Systolic BP Type 72 L arm 114 sitting Fetus Heart Rate Present Fetus Movement A Yes Comments Flowsheet Date 06/08/2025 Rhodes Score Blood Edema Fundus Height Fundus Units Glucose Ketones Leukocytes Nitrite Labor Signs Protein Cervic Dilation Cervic Effacement Cervic Station 20 cm Type Weight in lbs Pre/Post Dialysis Refused 156.228204462797 BP Diastolic BP Location Tested BP Systolic [...]
--- OUTSIDE RECORDS SUMMARY | 2025-06-13 15:45 | XMS_ITS | Clinical Summary ---
Author Organization [address] Address [address] [place] [address] Care Team Providers Care Turning Sander Tender Name Role Phone Unknown, Notinfile Primary Care Provider Unavail able Allergies Active Allergy Reactions Criticality Noted Date Comments Sulfa (Sulfonamide Antibiotics) Rash Medium 11/2021 Medications albuterol HFA (PROVENTIL HFA,VENTOLIN HFA,PROAIR HFA) 90 mcg/actuation inhalerIndicatio ns:Viral URI with cough Inhale 2 puffs every 6 (six) hours as needed for wheezing 3 each 4 2 Active Additional Information Patient not taking.Reported on 06/13/2025 albuterol HFA (PROVENTIL HFA,VENTOLIN HFA,PROAIR HFA) 90 mcg/actuation inhalerIndicatio ns:Asthma, unspecified asthma severity, unspecified whether complicated, unspecified whether persistent,Medic ation refill Inhale 2 puffs every 6 (six) hours as needed for wheezing 1 each 2 Active Additional Information Patient not taking.Reported on 06/13/2025 predniSONE (DELTASONE) 10 mg tabletIndication s:Contact dermatitis due to detergent, unspecified contact dermatitis type Take 4 tabs days 1&2, 3 tabs days 3 & 4, 2 tabs days 5 & 6, 1 tab days 7-10. 22 tablet 3 Active Additional Information Patient not taking.Reported on 06/13/2025 triamcinolone (KENALOG) 0.1 % creamIndications :skin rash Apply topically 2 (two) times a day for 10 days Not to face or groin 30 g 10/10/202 3 Active Additional Information Patient not taking.Reported on 06/13/2025 vit,hossein 74-[id number]-cxmqr (PRENATABS RX) tablet tablet Take by mouth daily Active Active Problems Estimated Date of Delivery Comme nts Yes 09/25/2025 No known active problems Encounters Date Type Department Care Team Description 06/13/2025 3:30 PM [facility] Office Visit [facility] at [address] [address] Dayanna Urias NP Right upper quadrant abdominal pain (Primary Dx); Right upper quadrant abdominal tenderness, unspecified whether rebound tenderness present; 25 weeks gestation of 04/28/2025 4:30 PM CDT Office Visit [facility] at [address] [address] Dayanna Urias NP Acute serous otitis media without rupture, left (Primary Dx) from Last 3 Months Surgical History Surgery Date Site/Laterality Comments APPENDECTOMY Medical History Medical History Date Comments Asthma Social History Tobacco Use Types Packs/Day Years Used Date Smoking Tobacco: Never Estimated Date of Delivery Comme nts Yes 09/25/2025 Sex and Gender Information Value Date Recorded Sex Assigned at Not on file Legal Sex Female 8:13 AM CDT Gender Identity Not on file Sexual Orientation Not on file Obstetrics History Para Term AB IAB SAB Ectopic Multiple Livin g Live Births 1 Date Outcome GA Total Labor Labor/2nd/3rd Weight Sex Type Anes PTL Tamara A1 A5 Name Clin Current Last Filed Vital Signs Vital Sign Reading Time Taken Comments Blood Pressure 115/76 06/13/2025 2:59 PM [facility] Pulse 85 06/13/2025 2:59 PM [facility] Temperature 37.2 C (98.9 F) 06/13/2025 2:59 PM [facility] Respiratory Rate 16 06/13/2025 2:59 PM [facility] Oxygen Saturation 99% 06/13/2025 2:59 PM [facility] Inhaled Oxygen Concentration - - Weight 69.4 kg (153 lb) 06/13/2025 2:59 PM [facility] Height 165.1 cm (5' 5) 06/13/2025 2:59 PM [facility] Body Mass Index 25.46 06/13/2025 2:59 PM [facility] Plan of Treatment Health Maintenance Due Date Last Done Comments Cervical Cancer Screening 1993 Depression Screening 1993 Hepatitis C Screening 1993 Varicella Vaccines (1 of 2 - 13+ 2-dose series) 2006 Regular Well Visit/Exam 18-64 2011 Pneumococcal vaccine <65 (1 of 2 - PCV) 01/03/2012 HPV Vaccines (1 - 3-dose SCD M series) 01/03/2020 Covid-19 Vaccine (3 - 2024-2 6 season) 2025 02/22/2021, 02/01/2021 Influenza Vaccine (#1) 2025 07/07/2020 DTaP/Tdap/Td Vaccine (9 - Td or Tdap) 07/07/2030 07/07/2020, 08/31/2019, 08/03/2019, Additional history exists Hepatitis B Screening Completed 1993 , 1993, 1993 Insurance [employer] CHOICE Care Teams Turning Sander Tender Relationship Specialty Start Date End Date Unknown, Notinfile PCP - General 09/19/23
[2025-06-13 16:00] VITALS: BMI 25.7
[2025-06-13 16:18] LABS: Add Urine Microscopic? YES; Appearance Urine Cloudy (Clear); Glucose Urine UA Negative (Negative); Leukocyte Esterase Ur 1+ LEU/UL (Negative); Nitrate Urine Negative (Negative); Non Pathogenic Casts 0-2; Specific Grav Ur 1.026 (1.001-1.035)
[2025-06-13 16:39] LABS: Hematocrit 31.3 % (37.0-47.0); Hemoglobin 10.6 g/dL (12.0-15.0); Immature Granulocyte Percent A 0.4 % (0-0.5); Lymphocytes Absolute Auto 0.78 K/mm3 (0.9-3.2); Mean Corpuscular HGB Conc 33.9 g/dl (32-36); Mean Corpuscular Hemoglobin 32.2 pg (26-34); Mean Corpuscular Volume 95.1 fl (80-100); Nucleated Red Blood Cells Absolute Auto 0.000 K/mm3 (0.0-0.012); Nucleated Red Blood Cells Perc 0.0 % (0.0-0.2); Platelet Count Result 147 k/mm3 (150-375); Red Blood Count 3.29 M/mm3 (4.2-5.4); White Blood Count 5.5 K/mm3 (4.5-10.0)
[2025-06-13 16:43] VITALS: BP 106/59; PULSE 81
[2025-06-13] MEDS: FAMOTIDINE 20 MG TABLET PO (16:43)
[2025-06-13] MEDS: DEXTROSE 5%/LACTATED RINGERS 1,000 ML 999 ML IV CONT (16:43)
[2025-06-13] MEDS: ONDANSETRON INJ 4 MG/2 ML VIAL IV PUSH (16:43)
[2025-06-13] MEDS: LOPERAMIDE HCL 2 MG CAPSULE 4 MG PO (16:43)
[2025-06-13 16:58] LABS: Alanine Aminotransferase 19 U/L (6-35); Albumin Level 3.4 g/dL (3.5-5.1); Alkaline Phosphatase 76 U/L (38-126); Anion Gap 3 mmol/L (4-12); Aspartate Amino Transferase 34 U/L (14-36); Bilirubin,Total 0.3 mg/dL (0.2-1.3); Blood Urea Nitrogen 7 mg/dL (7-17); Calcium 8.3 mg/dL (8.4-10.2); Carbon Dioxide 22 mmol/L (22-30); Chloride 106 mmol/L (98-107); Estimated Glomerular Filt Rate > 60; Glucose 82 mg/dL (65-110); Potassium 3.7 mmol/L (3.4-5.0); Sodium 131 mmol/L (137-145); Total Protein 6.3 g/dL (6.3-8.2)
[2025-06-13 17:00] VITALS: BP 108/59; PULSE 73
[2025-06-13 17:15] VITALS: BP 104/58; PULSE 72
--- NOTE | 2025-06-13 18:26 | PC.NURSE ---
Briseida called in for an update. Notified of labs and FHTs. New orders received to discharge patient at this time if she feels comfortable going home.
--- NOTE | 2025-06-13 18:44 | PC.NURSE ---
Discharge discussed with patient. Patient states that she feels comfortable with being discharged.
--- NOTE | 2025-06-16 07:39 | P.PNOB_ITS ---
OB - Triage/Final Diagnosis Visit Information Date of evaluation: 06/13/25 Reason for evaluation: other (nausea and vomiting) Comments/Additional reasons for admission: I have assessed the risk for this patient, Mara Bentley, and determined that she would benefit from observation care. Evaluation Laboratory results: Laboratory Tests 06/13/25 06/13/25 16:08 16:24 WBC 5.5 RBC 3.29 L Hgb 10.6 L Hct 31.3 L MCV 95.1 MCH 32.2 MCHC 33.9 RDW 13.2 Plt Count 147 L MPV 10.0 Immature Gran % (Auto) 0.4 Neut % (Auto) 74.2 H Lymph % (Auto) 14.2 L [place] % (Auto) 10.6 H Eos % (Auto) 0.4 Baso % (Auto) 0.2 Lymph # (Auto) 0.78 L [place] # (Auto) 0.6 Eos # (Auto) 0.0 Baso # (Auto) 0.0 Abs Immat Gran (auto) 0.02 Absolute Neuts (auto) 4.1 Absolute Nucleated RBC 0.000 Nucleated RBC % 0.0 Sodium 131 L Potassium 3.7 Chloride 106 Carbon Dioxide 22 Anion Gap 3 L BUN 7 D Creatinine 0.56 L Estim Creat Clear Calc Not Reportable Estimated GFR > 60 Glucose 82 Calcium 8.3 L Total Bilirubin 0.3 AST 34 ALT 19 Alkaline Phosphatase 76 Total Protein 6.3 Albumin 3.4 L Urine Color Yellow Urine Appearance Cloudy H Urine pH 7.0 Ur Specific [place] 1.026 Urine Protein 1+ H Urine Glucose (UA) Negative Urine Ketones Trace H Ur Blood (Man) Trace Urine Nitrate Negative Urine Bilirubin Negative Urine Urobilinogen 1.0 Ur Leukocyte Esterase 1+ H Urine RBC 6-10 H Urine WBC 11-20 H Ur Squamous Epith Cells Few Urine Bacteria 1+ H Urine Casts 0-2
== END 2025-06-13 18:45 | disposition home or self-care (01) ==
PROVIDERS: Advanced Practice Midwife; Admitting Provider Obstetrics & Gynecology; Visit Provider Obstetrics & Gynecology
DX: O21.2 Late vomiting of pregnancy (principal); Z3A.25 25 weeks gestation of pregnancy
CPT/HCPCS: 36415; 80053; 81001; 85025; A9270; G0378; G0379; J2405; J7121